=== PATIENT | female | born 1975 | race Caucasian/White ===

== ENCOUNTER 2020-10-09 04:19 | Emergency (ER) | payer BC, SELFPAY ==
[2020-10-09 04:38] VITALS: BP 150/102; PULSE 80; RESP 24; TEMP 36.6; O2SAT 97; BMI 30.1
--- NOTE | 2020-10-09 04:45 | PC.NURSE ---
at bedside for primary eval.
--- NOTE | 2020-10-09 04:51 | XR_ITS ---
EXAMINATION: XR CHEST CLINICAL INFORMATION: Shortness of breath COMPARISON: None TECHNIQUE: Frontal view of the chest was obtained. FINDINGS: The lungs are well expanded. There is no focal consolidation, edema, or effusion. No pneumothorax. The cardiomediastinal silhouette is within normal limits. No acute osseous abnormality. XR/XR chest 1V IMPRESSION: Clear lungs.
--- NOTE | 2020-10-09 04:56 | ED_ITS ---
HPI - URI/Sore Throat General Chief Complaint: Upper Respiratory Symptoms Stated Complaint: SOB Time Seen by Provider: 10/09/20 04:41 Source: patient Mode of arrival: ambulatory History of Present Illness HPI Narrative: 45-year-old female states of cough or shortness of breath x3 weeks. Patient states has seen her primary care doctor has been on steroids and azithromycin and not improving. Patient states at rest has had shortness of br eath however does have multiple coughing fits throughout the day. No chest pain no abdominal pain no diaphoresis no fevers. Patient states weekly gets COVID test negative secondary to work. No dizziness no diaphoresis no nausea no vomiting MD elicited complaint: cough Onset (ago): week(s) (3) Exacerbating factors: nothing Related Data Allergies Allergy/AdvReac Type Severity Reaction Status Date / Time latex [LATEX] Allergy Unknown RASH Unverified 07/31/20 17:17 Latex Gloves Allergy Unknown Uncoded 12/04/14 00:00 Review of Systems Review of Systems: Constitutional : No Weight loss, No Fever, No Chills, No Night Sweats, No Fatigue, No Malaise ENT/Mouth : No Hearing loss, No Ear Pain, No Nasal Congestion, No Sinus Pain, No Hoarseness, No sore throat, No Rhinorrhea, No Swallowing Difficulty Eyes: No Eye Pain, No Swelling, No Redness, No Foreign Body, No Discharge, No Vision Changes Cardiovascular : No Chest Pain, No SOB, No Dyspnea on Exertion, No Orthopnea, No Edema, No Palpitations Respiratory : Positive Cough, No Sputum, No Wheezing, No Smoke Exposure, positive Dyspnea Gastrointestinal : No Nausea, No Vomiting, No Diarrhea, No Constipation, No abdominal Pain, No Hematochezia, No Melena Genitourinary : no irregular bleeding, No Dysuria, No Urinary Frequency, No Hematuria, No Urinary Incontinence, No Urgency, No Flank Pain, No Urinary Flow Changes, No Hesitancy Musculoskeletal : No joint pain, No Myalgias, No Joint Swelling Skin : No Skin Lesions, No rash Neuro : No Weakness, No Numbness, No Paresthesias, No Loss of Consciousness, No Dizziness, No Headache Psych : No Anxiety/Panic, No Depression, No SI/HI/AH/VH, No Social Issues, Heme/Lymph: No Bruising, No Bleeding,No Lymphadenopathy Endocrine : No Polyuria, No Polydipsia, No Temperature Intolerance PMFSH Past Medical History Attestation statement: The following information was validated with the patient. Medical History Asthma No known health problems Family History Family History (Updated 10/09/20 @ 05:06 by Humza Carey DO) Other Family history non-contributory Social History Social History Advance Directives: No Advance Directives Information Provided: No Physical Exam Vital Signs: Vital Signs: Last Vital Signs Temp 97.9 F 10/09/20 04:38 Pulse 80 10/09/20 04:38 Resp 24 H 10/09/20 04:38 BP 150/102 H 10/09/20 04:38 Pulse Ox 97 10/09/20 04:38 Body Mass Index 30.1 Vital signs reviewed Pulse ox interpreted by me as normal at 97% room air Appearance: Alert. Oriented X3. No acute distress. Eyes: Pupils equal, round and reactive to light. ENT: Pharynx normal. Neck: Normal inspection. Neck supple. No lymph nodes noted. No crepitus CVS: Normal heart rate and rhythm. Pulses normal. Normal S1 and S2 Respiratory: Mild respiratory distress. Breath sounds abormal. Mild Wheezing with exertion. No rales Abdomen: Soft and nontender. No rigidity. No distention. good BS x4 Skin: Skin warm and dry. Normal skin color. Normal skin turgor. Extremities: No lower extremity edema. Neurovascular intact to all extremities. No Lacerations. No Rash Neuro: Oriented X 3. No motor deficit. No sensory deficit. Moving all extermities. No slurred speech. MDM - URI/Sore Throat Differential Diagnosis Differential diagnosis: Likely upper respiratory infection (Acute coronary syndrome, pulmonary embolism) Lab Data Attestation: I reviewed the patient's lab results. ECG Data Attestation: I personally reviewed and interpreted this ECG as follows: Interpretation: 78 beats per minute. Normal sinus rhythm. Rightward axis. No ST-T changes
--- NOTE | 2020-10-09 05:05 | PC.NURSE ---
RT at bedside. IV established, labs obtained and sent. EKG obtained by plant facilities technician. Awaiting CXR.
[2020-10-09 05:11] LABS: Basophils Absolute Auto 0.1 X10*3/uL (0.0-0.2); Basophils Percent Auto 0.6 % (0-2); Eosinophils Absolute Auto 0.2 X10*3/uL (0.0-0.4); Eosinophils Percent Auto 2.4 % (0-4); Hemoglobin 12.2 g/dl (12.0-16.0); Imm Gran Abs Auto 0.06 X10*3/uL (0.00-0.03); Imm Gran Pct Auto 0.6 % (0.0-0.4); Lymphocytes Absolute Auto 3.5 X10*3/uL (1.2-4.9); Lymphocytes Percent Auto 35.2 % (20-40); MANUAL DIFF FLAG NO; Mean Corpuscular Hemoglobin 30.1 pg (27.0-33.0); Mean Corpuscular Volume 91.4 fL (80-98); Mean Platelet Volume 10.2 fL (9.4-12.3); Monocytes Absolute Auto 0.5 X10*3/uL (0.1-1.2); Monocytes Percent Auto 5.5 % (2-11); Neutrophils Absolute Auto 5.5 X10*3/uL (2.0-8.3); Neutrophils Percent Auto 55.7 % (45-73); Platelet Count 233 X10*3/uL (160-400); Red Blood Count 4.05 X10*6/uL (4.20-5.50); Red Cell Distribution Width 12.7 % (11.0-16.0); White Blood Count 9.8 X10*3/uL (4.8-10.8)
[2020-10-09 05:20] LABS: D Dimer < 200 NG/ML
[2020-10-09] MEDS: Albuterol Sulfate (0.083%) 2.5 MG/3 ML VIAL.NEB 5 MG INHALE (05:29)
[2020-10-09 05:30] VITALS: PULSE 80; O2SAT 97
[2020-10-09 05:40] LABS: Alanine Aminotransferase 26 U/L (0-31); Albumin Level 4.2 g/dL (3.5-5.0); Alkaline Phosphatase 77 U/L (39-117); Anion Gap 13 (12-20); Aspartate Amino Transferase 17 U/L (5-31); Bilirubin Direct 0.2 mg/dL (0.0-0.5); Bilirubin Total 0.5 mg/dL (0.0-1.0); Blood Urea Nitrogen 15 mg/dL (9-16); Calcium 8.6 mg/dL (8.4-10.2); Carbon Dioxide 24 mmol/L (22-29); Chloride 105 mmol/L (96-108); Creatinine Clr Calc Pharmacy 91.6; Estimated Glomerular Filt Rate > 60; Glucose Random 95 mg/dL (60-115); Sodium 138 mmol/L (135-145); Total Protein 7.3 g/dL (6.5-8.0)
[2020-10-09 05:46] LABS: Troponin-I High Sensitivity < 3.5 ng/L (<3.5-17.0)
--- NOTE | 2020-10-09 06:17 | PC.NURSE ---
MD at bedside discussing results and plan of care.
[2020-10-09 06:43] VITALS: BP 124/68; PULSE 94; RESP 24; O2SAT 95
[2020-10-09] MEDS: predniSONE 20 MG TABLET 60 MG PO (06:44)
== END 2020-10-09 06:50 | disposition home or self-care (01) ==
PROVIDERS: Emergency Provider Emergency Medicine; PCP Hospitalist
DX: R05 Cough (principal); R06.02 Shortness of breath; Z20.828 Contact with and (suspected) exposure to other viral communicable diseases
CPT/HCPCS: 36415; 71045; 80048; 80076; 84484; 85025; 85379; 99283

== ENCOUNTER 2021-04-04 21:04 | Emergency (ER) | payer BC, SELFPAY ==
[2021-04-04 21:13] VITALS: BP 134/99; PULSE 76; RESP 16; TEMP 36.6; O2SAT 97; BMI 30.1
--- NOTE | 2021-04-04 21:37 | PC.NURSE ---
UA obtained and sent.
[2021-04-04 21:44] LABS: Glucose Urine UA NEG (NEG); Leukocyte Esterase Urine 2+ (NEG); Nitrite Urine NEG (NEG); Specific Gravity - Urine 1.025 (1.005-1.025); UACC Culture Trigger YES; Urine Blood 3+ (NEG); Urine Ketones NEG (NEG); Urine Protein NEG (NEG-TRACE)
[2021-04-04 21:49] LABS: Appearance Urine HAZY; Color Urine YELLOW
[2021-04-04 21:55] LABS: Bacteria Urine TRACE /LPF; Mucus Urine TRACE /LPF; Squamous Epithelial Cell Urine 3+ /LPF
--- NOTE | 2021-04-05 00:16 | ED.FEMALEGU ---
HPI - Female Genitourinary General Chief complaint: Urogenital-Female Stated complaint: ?Kidney infection Time Seen by Provider: 04/05/21 00:16 Source: patient Mode of arrival: ambulatory History of Present Illness HPI Narrative: 45-year-old female who is 9 days postop after TVH at which time she had of Lujan catheter for the surgery. Patient states that 2-3 days ago she began having left flank pain extending into the back with urinary frequency that started this afternoon, denies any fever chills but has a lot of nausea without any episodes of vomiting. She has continued to pass flatus and have a bowel movement. Related Data Previous Rx's Medication Instructions Recorded doxycycline hyclate 100 mg PO BID #10 cap 10/09/20 hydrocodone-homatropine 5 ml PO Q6H PRN #473 ml 10/09/20 prednisone 50 mg PO DAILY 5 Days #5 tab 10/09/20 ciprofloxacin HCl [Cipro] 500 mg PO Q12H 7 Days #14 tab 04/05/21 Allergies Allergy/AdvReac Type Severity Reaction Status Date / Time latex [LATEX] Allergy Unknown RASH Unverified 07/31/20 17:17 Latex Gloves Allergy Unknown Rash Uncoded 04/04/21 21:19 Review of Systems Review of Systems: Pertinent positives and negatives as stated in HPI 10 point review of systems otherwise negative. PMFSH Past Medical History Source: nursing notes reviewed Medical History Asthma No known health problems Uterine fibroid Surgical History History of hysterectomy Family History Family History Other Family history non-contributory Social History Social History Advance Directives: No Advance Directives Information Provided: No Patient : No Physical Exam Vital Signs: Vital Signs: Last Vital Signs Temp 98 F 04/04/21 21:13 Pulse 76 04/04/21 21:13 Resp 16 04/04/21 21:13 BP 134/99 H 04/04/21 21:13 Pulse Ox 97 04/04/21 21:13 Body Mass Index 30.1 VITAL SIGNS: Reviewed. GENERAL: Well developed, well nourished, in no acute distress. HEAD: Normocephalic/atraumatic EYES: PERRLA, EOMI OROPHARYNX: no oral lesions noted, posterior pharynx clear NECK: Supple, no adenopathy LUNGS: Normal breath sounds. No adventitious sounds or accessory muscle use. SpO2<97> CARDIOVASCULAR: Regular rate and rhythm without noted murmurs ABDOMEN: Soft, non-tender, non-distended with bowel sounds, positive CVA tenderness on the left Course Course Course Narrative: 45-year-old female with history and clinical presentation upon review of urinalysis results most consistent with pyelonephritis. Will provide combination analgesics, IV antibiotics, antiemetics, and 1 L of IV fluids and discharged home. On re-evaluation patient is feeling much better and she will be discharged after completion of antibiotics and IV fluids in stable condition with instructions to follow-up with her PCP. [facility] - Female Genitourinary Lab Data Labs: Lab Results 04/04/21 Range/Units 21:37 Urine Color YELLOW Urine Appearance HAZY Urine pH 6.0 (5.0-8.0) Ur Specific [place] 1.025 (1.005-1.025) Urine Protein NEG (NEG-TRACE) MG/DL Urine Glucose (UA) NEG (NEG) MG/DL Urine Ketones NEG (NEG) MG/DL Urine Blood 3+ H (NEG) Urine Nitrite NEG (NEG) Ur Leukocyte Esterase 2+ H (NEG) Urine RBC 1-4 (0) /HPF Urine WBC 10-14 H (0-4) /HPF Ur Squamous Epith Cells 3+ /LPF Urine Bacteria TRACE /LPF Urine Mucus TRACE /LPF Discharge Plan Discharge Clinical Impression: Pyelonephritis Patient Disposition: Home, Self-Care Instructions: Kidney Infection (ED) Additional Instructions: 1. Tylenol 1000 mg, orally, every 6 hours as needed for pain control. Do not exceed 4000 mg within 24 hours. 2. Ibuprofen 400 mg, orally with milk or food, every 6 hours as needed for pain control. 3. Follow-up with your primary care provider in the next 2-3 days for re-evaluation. Return to the emergency room if you have any acute worsening of your symptoms. Prescriptions: New ciprofloxacin HCl [Cipro] 500 mg tablet 500 mg PO Q12H 7 Days Qty: 14 RF: 0 No Action doxycycline hyclate 100 mg capsule 100 mg PO BID Qty: 10 RF: 0 prednisone 50 mg tablet 50 mg PO DAILY 5 Days Qty: 5 RF: 0 hydrocodone-homatropine 5-1.5 mg/5 mL syrup 5 ml PO Q6H PRN (Reason: cough) Qty: 473 RF: 0 Referrals: Harish Espinoza [Primary Care Provider] - 2 days
[2021-04-05] MEDS: Acetaminophen 325 MG TABLET 975 MG PO (00:57)
[2021-04-05] MEDS: Ketorolac Tromethamine 15 MG/ML VIAL IVPUSH (00:58)
[2021-04-05] MEDS: 0.9 % Sodium Chloride 1,000 ML 999 ML IV (00:58)
[2021-04-05] MEDS: ondansetron HCL 4 MG/2 ML VIAL IVPUSH (00:58)
[2021-04-05] MEDS: cefTRIAXone sodium 1 GM in 0.9 % Sodium Chloride 50 ML IV (00:59)
== END 2021-04-05 02:10 | disposition home or self-care (01) ==
PROVIDERS: Emergency Provider Student in an Organized Health Care Education/Training Program; PCP Hospitalist
DX: N10 Acute pyelonephritis (principal); R10.9 Unspecified abdominal pain; R11.0 Nausea; Z79.899 Other long term (current) drug therapy
CPT/HCPCS: 81001; 81003; 87086; 96365; 96375; 99283; 99284; J0696; J1885; J2405

== ENCOUNTER 2021-11-05 21:06 | Emergency (ER) | payer BC, SELFPAY ==
--- NOTE | ~2021-11-05 | CT_ITS ---
EXAMINATION: CT ABDOMEN AND PELVIS WITHOUT CONTRAST CLINICAL INFORMATION: Left flank pain. Renal colic versus pyelonephritis COMPARISON: None available TECHNIQUE: Multidetector volumetric imaging was performed from the superior aspect of the liver through the pubic symphysis. Sagittal and coronal reformatted images were obtained on the technologist's workstation. This CT examination was performed using dose optimization techniques as appropriate, variously including the following: *Automated exposure control *Adjustment of mA and/or kV according to patient size (this includes techniques or standardized protocols for targeted exams where dose is matched to indication/reason for exam; i.e. extremities or head) *Use of iterative reconstruction technique DLP: 647 mGy-cm FINDINGS: LUNG BASES: The visualized lung bases are unremarkable. Inferior aspect of a left breast prosthesis/implant is seen. LIVER, GALLBLADDER, AND BILIARY TREE: The liver is normal in size, shape, and attenuation. No focal hepatic lesion or biliary ductal dilatation is present. The gallbladder is unremarkable with no evidence of radiopaque gallstones, gallbladder wall thickening, or obvious pericholecystic inflammatory changes. PANCREAS: Unremarkable. SPLEEN: Unremarkable. Some splenules are seen. ADRENAL GLANDS: Unremarkable. KIDNEYS AND URETERS: The right kidney is normal. No hydronephrosis masses or stones are seen. The right ureter appears normal. Left kidney demonstrates some mild pelvocaliectasis with some minimal stranding around the renal pelvis. The ureter is not dilated and can be followed almost in its entirety to the bladder and a convincing calculus is not present. No renal masses are seen. No renal calculi are present. BLADDER: Unremarkable. GASTROINTESTINAL TRACT: The small and large bowel are unremarkable. The appendix is probably normal but there is certainly no evidence of appendicitis. ABDOMINAL WALL: No significant hernia is appreciated. LYMPH NODES: No retroperitoneal lymphadenopathy. VASCULAR: Unremarkable. PELVIC VISCERA: Uterus appears to have been removed. An abnormal adnexal mass or free intraperitoneal fluid is not seen. OSSEOUS STRUCTURES: Unremarkable. CT/CT abdomen pelvis wo con IMPRESSION: Abnormal left kidney with cysts and slight edema and collecting system prominence. An obstructing stone is not seen. Differential diagnosis would include pyelonephritis versus recently passed stone. Please correlate with urinalysis and culture. Fleischner guidelines were followed.
[2021-11-05 21:26] VITALS: BP 132/80; PULSE 89; RESP 16; TEMP 37.1; O2SAT 100; BMI 29.2
[2021-11-05 21:48] LABS: Appearance Urine HAZY; Color Urine STRAW; Glucose Urine UA NEG (NEG); Leukocyte Esterase Urine 3+ (NEG); Nitrite Urine NEG (NEG); Specific Gravity - Urine 1.015 (1.005-1.025); UACC Culture Trigger YES; Urine Blood 2+ (NEG); Urine Ketones NEG (NEG); Urine Protein 2+ MG/DL (NEG-TRACE)
[2021-11-05 21:56] LABS: Bacteria Urine 3+ /LPF; Mucus Urine 2+ /LPF; Squamous Epithelial Cell Urine 1+ /LPF; WBC Urine 50-75 /HPF (0-4)
--- NOTE | 2021-11-05 22:46 | ED.FEMALEGU ---
HPI - Female Genitourinary General Chief complaint: Urogenital-Female Stated complaint: kidney infection Time Seen by Provider: 11/05/21 22:23 Source: patient Mode of arrival: ambulatory History of Present Illness HPI Narrative: 46-year-old female with history of pyelonephritis presents with 1 week of worsening left-sided abdominal/back pain and burning with urination for the past week. This is not been associated with any nausea, vomiting, diarrhea, fevers but patient reports chills. Related Data Previous Rx's Medication Instructions Recorded doxycycline hyclate 100 mg capsule 100 mg PO BID #10 cap 10/09/20 hydrocodone-homatropine 5 mg-1.5 5 ml PO Q6H PRN #473 ml 10/09/20 mg/5 mL oral syrup prednisone 50 mg tablet 50 mg PO DAILY 5 Days #5 tab 10/09/20 ciprofloxacin HCl 500 mg tablet 500 mg PO Q12H 7 Days #14 tab 04/05/21 (Cipro) ciprofloxacin HCl 500 mg tablet 500 mg PO Q12H 5 Days #10 tab 11/05/21 Allergies Allergy/AdvReac Type Severity Reaction Status Date / Time latex [LATEX] Allergy Unknown RASH Verified 11/05/21 22:53 Latex Gloves Allergy Unknown Rash Uncoded 11/05/21 22:53 Review of Systems Review of Systems: Pertinent positives and negatives as stated in HPI 10 point review of systems is otherwise negative. [facility] Past Medical History Source: nursing notes reviewed Medical History Asthma No known health problems Uterine fibroid Surgical History History of hysterectomy Family History Family History Other Family history non-contributory Social History Social History Advance Directives: No Advance Directives Information Provided: Yes Patient : No Physical Exam Vital Signs: Vital Signs: Last Vital Signs Temp 98.7 F 11/05/21 21:26 Pulse 83 11/05/21 23:53 Resp 18 11/05/21 23:53 BP 104/65 11/05/21 23:53 Pulse Ox 96 11/05/21 23:53 BMI result Body Mass Index 29.2 VITAL SIGNS: Reviewed. GENERAL: Well developed, well nourished, mod distress. HEAD: Normocephalic/atraumatic EYES: PERRLA, EOMI LUNGS: Normal breath sounds. No adventitious sounds or accessory muscle use. SpO2<100> CARDIOVASCULAR: Regular rate and rhythm without noted murmurs ABDOMEN: Soft, non-tender, non-distended with bowel sounds, left CVA tenderness NEUROLOGIC: Alert and oriented x 4. Course Course Course Narrative: 46-year-old female with history and clinical presentation suggestive of possible pyelonephritis versus renal colic. Review of all investigations consistent with clinical diagnosis of pyelonephritis, patient tolerating oral intake, and on re-evaluation is feeling better after combination analgesics and was discharged after receiving initial antibiotics. [facility] - Female Genitourinary Lab Data Labs: Lab Results 11/05/21 11/05/21 Range/Units 21:37 21:37 Urine Color STRAW Urine Appearance HAZY Urine pH 6.0 (5.0-8.0) Ur Specific [place] 1.015 (1.005-1.025) Urine Protein 2+ H (NEG-TRACE) MG/DL Urine Glucose (UA) NEG (NEG) MG/DL Urine Ketones NEG (NEG) MG/DL Urine Blood 2+ H (NEG) Urine Nitrite NEG (NEG) Ur Leukocyte Esterase 3+ H (NEG) Urine RBC 10-14 H (0) /HPF Urine WBC 50-75 H (0-4) /HPF Ur Squamous Epith Cells 1+ /LPF Urine Bacteria 3+ /LPF Urine Mucus 2+ /LPF Urine Test NEGATIVE (NEGATIVE) Discharge Plan Discharge Clinical Impression: Pyelonephritis Patient Disposition: Home, Self-Care Instructions: Kidney Infection (ED) Additional Instructions: Complete entire course of antibiotics Recommend [id number] Tylenol/ibuprofen as needed for pain control. Return for worsening symptoms. Prescriptions: New ciprofloxacin HCl 500 mg tablet 500 mg PO Q12H 5 Days Qty: 10 RF: 0 No Action doxycycline hyclate 100 mg capsule 100 mg PO BID Qty: 10 RF: 0 prednisone 50 mg tablet 50 mg PO DAILY 5 Days Qty: 5 RF: 0 hydrocodone-homatropine 5-1.5 mg/5 mL syrup 5 ml PO Q6H PRN (Reason: cough) Qty: 473 RF: 0 ciprofloxacin HCl [Cipro] 500 mg tablet 500 mg PO Q12H 7 Days Qty: 14 RF: 0
[2021-11-05 22:54] LABS: UPreg QC Valid YES; Urine Pregnancy NEGATIVE (NEGATIVE)
[2021-11-05] MEDS: Acetaminophen 325 MG TABLET 975 MG PO (23:07)
[2021-11-05] MEDS: levoFLOXacin 500 MG TABLET PO (23:07)
[2021-11-05] MEDS: Ketorolac Tromethamine 30 MG/ML VIAL 15 MG IM (23:08)
[2021-11-05 23:53] VITALS: BP 104/65; PULSE 83; RESP 18; O2SAT 96
== END 2021-11-06 00:50 | disposition home or self-care (01) ==
PROVIDERS: Emergency Provider Student in an Organized Health Care Education/Training Program
DX: N12 Tubulo-interstitial nephritis, not specified as acute or chronic (principal)
CPT/HCPCS: 36415; 74176; 81001; 81025; 87086; 87088; 87186; 96372; 99284; J1885

== ENCOUNTER 2022-02-10 08:49 | Emergency (ER) | payer BC, SELFPAY ==
--- NOTE | ~2022-02-10 | XR_ITS ---
EXAMINATION: XR CHEST CLINICAL INFORMATION: COVID, history of asthma. COMPARISON: 10/09/2020 chest radiograph. TECHNIQUE: 2 views of the chest were obtained. FINDINGS: The lungs are clear. There are no pleural effusions. The heart and mediastinal structures are unremarkable. XR/XR chest 2V IMPRESSION: No acute cardiopulmonary process.
[2022-02-10 08:53] VITALS: BP 144/94; PULSE 77; RESP 20; TEMP 36.8; O2SAT 96; BMI 30.1
[2022-02-10] MEDS: Albuterol/Iprat 2.5/0.5MG 3 ML AMPUL.NEB INHALE (09:43)
[2022-02-10 09:44] VITALS: PULSE 77; O2SAT 96
[2022-02-10] MEDS: predniSONE 20 MG TABLET 60 MG PO (09:55)
--- NOTE | 2022-02-10 09:59 | ED.SOB ---
HPI - SOB/Dyspnea General Chief Complaint: Dyspnea Stated Complaint: Covid+, SOB Time Seen by Provider: 02/10/22 09:08 Source: patient Mode of arrival: ambulatory Limitations: no limitations History of Present Illness HPI Narrative: 46-year-old female who tested positive for COVID 4 days ago presents for shortness of breath. She has a history of asthma, and did not take any inhalers today. She does have an albuterol inhaler, flow but it, and DuoNeb at home. She has been using her DuoNeb 2 to 3 times a day and her albuterol inhaler twice a day, she does not usually use these rescue medications. Patient states that her chest feels tight, although she has no chest pain. She has been on prednisone before for asthma. Endorses fatigue, dry cough, congestion, minor ear pain and sore throat, she is eating and drinking fine. fevers, no body aches, no abdominal pain, no diarrhea, no vomiting, no nausea. Related Data Previous Rx's Medication Instructions Recorded doxycycline hyclate 100 mg capsule 100 mg PO BID #10 cap 10/09/20 hydrocodone-homatropine 5 mg-1.5 5 ml PO Q6H PRN #473 ml 10/09/20 mg/5 mL oral syrup prednisone 50 mg tablet 50 mg PO DAILY 5 Days #5 tab 10/09/20 ciprofloxacin HCl 500 mg tablet 500 mg PO Q12H 7 Days #14 tab 04/05/21 (Cipro) ciprofloxacin HCl 500 mg tablet 500 mg PO Q12H 5 Days #10 tab 11/05/21 prednisone 20 mg tablet 40 mg PO DAILY 5 Days #10 tab 02/10/22 Allergies Allergy/AdvReac Type Severity Reaction Status Date / Time latex [LATEX] Allergy Unknown RASH Verified 02/10/22 08:56 Latex Gloves Allergy Unknown Rash Uncoded 11/05/21 22:53 Review of Systems Constitutional: Constitutional: Denies body ache(s), Denies chills, Reports fatigue, Denies fever(s), Denies headache(s), Reports malaise and Denies weakness Eyes: Eyes: Denies diplopia ENT: Denies vertigo, Denies dizziness, Reports otalgia, Denies headache(s), Denies mouth pain, Reports nasal congestion, Reports nasal discharge, Reports post nasal drip, Denies sinus pain, Denies sinus pressure, Reports sore throat and Denies throat swelling Cardiovascular: Cardiovascular: Denies chest pain, Denies syncope, Denies leg edema, Denies lightheadedness, Denies Loss of Consciousness, Denies palpitations and Reports dyspnea Respiratory: Respiratory: Denies chest congestion, Reports cough and Reports dyspnea Gastrointestinal: Gastrointestinal: Denies abdominal pain, Denies hematochezia, Denies constipation, Denies diarrhea and Denies vomiting Musculoskeletal: Musculoskeletal: Reports no additional musculoskeletal complaints Neurologic: Denies confusion, Denies vertigo, Denies dizziness, Denies syncope, Denies headache(s) and Denies weakness Psychiatric: Psychiatric: Denies anxiety, Denies confusion and Denies depression Endocrine: Endocrine: Reports fatigue and Denies palpitations Allergic/Immunologic: Allergic/Immunologic: Denies throat swelling [facility] Past Medical History [facility] Narrative: Pyelonephritis PTSD Medical History Asthma No known health problems Uterine fibroid Surgical History History of hysterectomy Family History Family History Other Family history non-contributory Social History Social History Advance Directives: Yes Advance Directives Information Provided: No Advance Directives on File: No Physical Exam Vital Signs: Vital Signs: Last Vital Signs Temp 98.2 F 02/10/22 08:53 Pulse 77 02/10/22 09:44 Resp 20 02/10/22 08:53 BP 144/94 H 02/10/22 08:53 Pulse Ox 96 02/10/22 08:53 BMI result Body Mass Index 30.1 Const: General: No confusion Nutritional Appearance: well nourished Orientation/consciousness: No confusion Limitations: no limitations HEENT: Head: Yes normal to inspection, Yes normocephalic and Yes atraumatic Ears: hearing grossly normal bilaterally, external ears normal, TM's normal bilaterally and EAC's normal General nose exam: Normal external nose present Face and sinus: Yes normal facial exam and Yes sinuses nontender Mouth: Normal oral and palatal mucosa present Throat: Yes uvula midline, No abnormal tonsil, Yes posterior oropharynx abnormal (Mildly erythematous) and Yes postnasal drainage Eyes: Conjunctivae: conjunctivae normal Pupils: Equal, round and reactive pupils present EOM: EOMs intact bilaterally Neck: Neck: Yes full ROM, Yes no lymphadenopathy and Yes supple Resp: Effort & Inspection: normal respiratory effort and able to speak in complete sentences Auscultation: clear to auscultation bilaterally, no crackles, no rales, no rhonchi, no wheezes and diminished lung sounds (Mildly bilaterally) Cardio: Rate: regular rate Rhythm: regular rhythm Heart sounds: S1 normal heart sound present and S2 normal heart sound present GI: Inspection: Yes normal to inspection Palpation (GI): Soft to palpation, nontender, no guarding and not rigid Percussion: Yes normal to percussion Auscultation: normal bowel sounds Skin: General skin exam: no rashes or lesions noted Neuro: General: No confusion Cranial nerves: Yes Equal, round and reactive pupils present Extrem: General: Yes normal to inspection and Yes full ROM Psych: Appearance: grossly normal Affect: normal affect Attitude: cooperative Thought process: Normal thought process present Course Course Course Narrative: 46-year-old female presents for shortness of breath. Patient has a history of asthma and was diagnosed with COVID 4 days ago. On exam, patient has a respiration rate of 20 and is satting 96%. Not in any respiratory distress. Lungs are mildly diminished, no wheezes or rhonchi or rales heard. Posterior oropharynx shows postnasal drip. Patient is afebrile. After nebulizer treatment, patient feels much better, she is moving more air. Chest x-ray was negative, lungs are clear, no pneumonia or effusions. We did discuss that patient should have a low threshold to return to the emergency room, patient's groin was 0 on the Wells score, I do not think this is of pulmonary embolus, as patient scores 0 on wells and has stable vitals. Patient has no chest pain, I do not think this is cardiac in nature. However, counseled patient to return to the emergency room if she had sudden chest pain, or worsening shortness of breath. Counseled her to use a pulse oximeter at home to keep track of her oxygen saturation. Patient verbalized agreement understanding of the plan FINDINGS: The lungs are clear. There are no pleural effusions. The heart and mediastinal structures are unremarkable. XR/XR chest 2V IMPRESSION: No acute cardiopulmonary process. Discharge Plan Discharge Clinical Impression: Asthma with exacerbation, COVID-19 Patient Disposition: Home, Self-Care Instructions: Asthma (ED), COVID-19 (Coronavirus Disease 2019) (ED) Additional Instructions: Please call your primary care provider for today's emergency room visit for follow-up. Please use your nebulizer machine every 4-6 hours for the next 3 days. Please take Tylenol as needed. Please take prednisone starting tomorrow, take prednisone in the morning. As we discussed, COVID can cause blood clots, if you feel suddenly short of breath with chest pain, please return. Your x-ray showed no pneumonia today, I do think this is an asthma exacerbation from the COVID virus. However, if you feel worse, you must return immediately to emergency room Prescriptions: New prednisone 20 mg tablet 40 mg PO DAILY 5 Days Qty: 10 0RF No Action doxycycline hyclate 100 mg capsule 100 mg PO BID Qty: 10 0RF prednisone 50 mg tablet 50 mg PO DAILY 5 Days Qty: 5 0RF hydrocodone-homatropine 5-1.5 mg/5 mL syrup 5 ml PO Q6H PRN (Reason: cough) Qty: 473 0RF ciprofloxacin HCl [Cipro] 500 mg tablet 500 mg PO Q12H 7 Days Qty: 14 0RF ciprofloxacin HCl 500 mg tablet 500 mg PO Q12H 5 Days Qty: 10 0RF Interventions: ED Discharge Assessment Last Done: 02/10/22 10:28 Discharge Date/Time: 02/10/22 10:25
== END 2022-02-10 10:25 | disposition home or self-care (01) ==
PROVIDERS: Emergency Provider Emergency Medicine
DX: U07.1 COVID-19 (principal); J45.901 Unspecified asthma with (acute) exacerbation; R06.02 Shortness of breath
CPT/HCPCS: 71046; 99283; 99284

== ENCOUNTER 2022-07-17 12:06 | Emergency (ER) | payer BC, SELFPAY ==
[2022-07-17 12:08] VITALS: BP 134/88; PULSE 85; RESP 20; TEMP 35.8; O2SAT 97; BMI 30.9
--- NOTE | 2022-07-17 12:45 | ED.ALLEREA ---
HPI - Allergic Reaction General Chief complaint: Allergic Reaction Stated complaint: Allergic Reaction to Poisson Edyta Time Seen by Provider: 07/17/22 12:42 History of Present Illness HPI narrative: patient with poison edyta which is been spreading all over body, she saw her doctor who has already started prednisone taper starting at 60 mg a day, this has not been helping she is also taking hydroxyzine 50 mg 4 times a day which makes her sleepy There is no difficulty breathing or swallowing, no pain no fever Related Data Previous Rx's Medication Instructions Recorded doxycycline hyclate 100 mg capsule 100 mg PO BID #10 caps 10/09/20 hydrocodone-homatropine 5 mg-1.5 5 ml PO Q6H PRN cough #473 mL 10/09/20 mg/5 mL oral syrup prednisone 50 mg tablet 50 mg PO DAILY 5 days #5 tabs 10/09/20 ciprofloxacin HCl 500 mg tablet 500 mg PO Q12H 7 days #14 tabs 04/05/21 (Cipro) ciprofloxacin HCl 500 mg tablet 500 mg PO Q12H 5 days #10 tabs 11/05/21 prednisone 20 mg tablet 40 mg PO DAILY 5 days #10 tabs 02/10/22 cetirizine 10 mg capsule 10 mg PO DAILY PRN allergy 07/17/22 symptoms #14 caps clobetasol 0.05 % topical ointment 1 appl topical DAILY PRN rash #45 07/17/22 grams diphenhydramine HCl 25 mg capsule 50 mg PO BEDTIME PRN allergy 07/17/22 (Benadryl) symptoms #20 caps famotidine 20 mg tablet (Pepcid) 20 mg PO DAILY #10 tabs 07/17/22 Allergies Allergy/AdvReac Type Severity Reaction Status Date / Time latex [LATEX] Allergy Unknown RASH Verified 02/10/22 08:56 Latex Gloves Allergy Unknown Rash Uncoded 11/05/21 22:53 Review of Systems Review of Systems: positive for itchy poison edyta rash Negatives are no fever no chills no dizziness weakness no fainting no feeling faint no headache no neck pain no difficulty breathing or swallowing no swelling of lips tongue uvula or pharynx, no drooling no voice change no chest pain no shortness of breath no vomiting no pain no wounds Yes all other systems are reviewed and are negative PMFSH Past Medical History Source: nursing notes reviewed Medical History Asthma No known health problems Uterine fibroid Surgical History History of hysterectomy Family History Family History Other Family history non-contributory Social History Social History Advance Directives: Yes Advance Directives Information Provided: Yes Advance Directives on File: No Physical Exam ED Vital Signs: Vital Signs - 24 hr 07/17/22 12:08 Temperature 96.4 F L Pulse Rate 85 Respiratory Rate 20 Blood Pressure 134/88 Pulse Oximetry 97 Oxygen Delivery Method Room Air BMI result Body Mass Index 30.9 general appearance is no distress Head is normocephalic atraumatic Eyes no redness no discharge The nose not congested The pharynx no swelling of lips tongue uvula or pharynx, no impairment of breathing or swallowing, voice is normal, uvula is midline, no drooling Neck is supple Chest clear to auscultation bilateral with full symmetric equal breath sounds Heart no murmur Extremities full range of motion x4 there is widespread bilateral vesicular linear rash consistent with poison edyta Course Course Course Narrative: patient is already being treated with steroids and hydroxyzine, but the rash continues to spread and remains very itchy I told her we would try to change the antihistamine component so we are going to try Zyrtec once a day and Benadryl 50 mg at night to see if that is more helpful, and I wrote for a steroid cream Well-appearing patient is discharged Discharge Plan Discharge Clinical Impression: Poison deyta dermatitis Patient Disposition: Home, Self-Care Additional Instructions: continue taking the oral steroid as it is the strongest medicine for poison edyta We are changing the antihistamine from hydroxyzine which makes you sleepy to once a day Claritin as well as Benadryl 50 mg at night before bed We are also adding Pepcid which may have some positive affect on allergic reaction I wrote for a high-dose steroid cream as well as her prednisone to see if it relieves the itch in the were spots but it cannot be used all over the body as it is too strong so only small amounts in the itchy is to spots as needed Return any time any worse condition or concerns Follow with primary doctor Prescriptions: New cetirizine 10 mg capsule 10 mg PO DAILY PRN (Reason: allergy symptoms) Qty: 14 0RF diphenhydramine HCl [Benadryl] 25 mg capsule 50 mg PO BEDTIME PRN (Reason: allergy symptoms) Qty: 20 0RF famotidine [Pepcid] 20 mg tablet 20 mg PO DAILY Qty: 10 0RF clobetasol 0.05 % ointment 1 appl topical DAILY PRN (Reason: rash) Qty: 45 0RF No Action doxycycline hyclate 100 mg capsule 100 mg PO BID Qty: 10 0RF prednisone 50 mg tablet 50 mg PO DAILY 5 Days Qty: 5 0RF hydrocodone-homatropine 5-1.5 mg/5 mL syrup 5 ml PO Q6H PRN (Reason: cough) Qty: 473 0RF ciprofloxacin HCl [Cipro] 500 mg tablet 500 mg PO Q12H 7 Days Qty: 14 0RF prednisone 20 mg tablet 40 mg PO DAILY 5 Days Qty: 10 0RF ciprofloxacin HCl 500 mg tablet 500 mg PO Q12H 5 Days Qty: 10 0RF
== END 2022-07-17 15:09 | disposition home or self-care (01) ==
PROVIDERS: Emergency Provider Emergency Medicine
DX: L23.7 Allergic contact dermatitis due to plants, except food (principal)
CPT/HCPCS: 99282; 99283

== ENCOUNTER 2022-07-20 16:53 | Emergency (ER) | payer BC, SELFPAY ==
--- NOTE | 2022-07-20 | ECG_ITS ---
Test Reason : HYPERTENSION Blood Pressure : / mmHG Vent. Rate : 077 BPM Atrial Rate : 077 BPM P-R Int : 118 ms QRS Dur : 084 ms QT Int : 390 ms P-R-T Axes : 035 -34 055 degrees QTc Int : 441 ms Normal sinus rhythm Left axis deviation Nonspecific T wave abnormality Abnormal ECG When compared with ECG of 09-OCT-2020 04:54, No significant change was found Referred By: Generic ED Physician Electronically Signed By:WEN SIMMONS
[2022-07-20 16:55] VITALS: BP 163/105; PULSE 89; RESP 18; TEMP 36.8; O2SAT 98; BMI 30.9
--- NOTE | 2022-07-20 17:17 | ED.GENADULT ---
HPI - General Adult General Chief complaint: Allergic Reaction Stated complaint: allergic reaction to medicine Time Seen by Provider: 07/20/22 17:03 Source: patient Limitations: no limitations History of Present Illness HPI narrative: This is a 47-year-old female who has had poison chicho on her left lower abdomen and left thigh for weeks. The patient was treated with prednisone, is currently on her 2nd course, 60 mg daily. She noted that the poison chicho seem to be getting better in terms of the rash but then recently she developed more diffuse blotchy redness in the area where she had a poison chicho both on her left lower abdomen and on her left anterior thigh. Patient has been using open L baths, calamine lotion. She has been taking Benadryl, last dose this morning. She has also been on hydroxyzine. She went to her primary care physician today and was thought to have cellulitis and was put on Keflex. She took 1 dose but subsequent knows that she had feeling of tingling in her mouth and on. She denies any new rash, but does feel somewhat itchy all over. She denies any tongue or lip swelling or shortness of breath. Patient denies any history of hypertension, at her primary care physician's office her blood pressure was mildly elevated around 140/90.. Patient's last dose of prednisone was this morning, 60 mg PO. Patient has also noticed that for the last 5 days or so she has been incredibly thirsty and feels like she can never get enough water. Related Data Previous Rx's Medication Instructions Recorded doxycycline hyclate 100 mg capsule 100 mg PO BID #10 caps 10/09/20 hydrocodone-homatropine 5 mg-1.5 5 ml PO Q6H PRN cough #473 mL 10/09/20 mg/5 mL oral syrup prednisone 50 mg tablet 50 mg PO DAILY 5 days #5 tabs 10/09/20 ciprofloxacin HCl 500 mg tablet 500 mg PO Q12H 7 days #14 tabs 04/05/21 (Cipro) ciprofloxacin HCl 500 mg tablet 500 mg PO Q12H 5 days #10 tabs 11/05/21 prednisone 20 mg tablet 40 mg PO DAILY 5 days #10 tabs 02/10/22 cetirizine 10 mg capsule 10 mg PO DAILY PRN allergy 07/17/22 symptoms #14 caps clobetasol 0.05 % topical ointment 1 appl topical DAILY PRN rash #45 07/17/22 grams diphenhydramine HCl 25 mg capsule 50 mg PO BEDTIME PRN allergy 07/17/22 (Benadryl) symptoms #20 caps famotidine 20 mg tablet (Pepcid) 20 mg PO DAILY #10 tabs 07/17/22 clindamycin HCl 150 mg capsule 450 mg PO TID 7 days #63 caps 07/20/22 Allergies Allergy/AdvReac Type Severity Reaction Status Date / Time latex [LATEX] Allergy Unknown RASH Verified 07/20/22 16:55 Latex Gloves Allergy Unknown Rash Uncoded 11/05/21 22:53 Review of Systems Review of Systems: Yes all other systems are reviewed and are negative Constitutional: Constitutional: Reports as per HPI and Denies fever(s) Eyes: Eyes: Reports as per HPI and Reports no additional eye complaints ENT: Reports system reviewed and no additional complaints, except as documented, Reports as per HPI, Denies nasal congestion, Denies nasal discharge and Denies sore throat Cardiovascular: Cardiovascular: Reports as per HPI, Denies chest pain and Reports dyspnea (Mild) Respiratory: Respiratory: Reports as per HPI, Denies cough and Reports dyspnea (Mild) Gastrointestinal: Gastrointestinal: Reports as per HPI, Denies abdominal pain, Denies diarrhea and Denies vomiting Genitourinary: Genitourinary: Reports as per HPI, Denies hematuria, Denies urinary frequency and Denies dysuria Musculoskeletal: Musculoskeletal: Reports no additional musculoskeletal complaints and Denies numbness Integumentary/Breasts: Skin/Breast: Reports as per HPI and Reports rash Neurologic: Reports as per HPI, Denies focal weakness and Denies numbness Comments: Tingling in mouth and time Psychiatric: Psychiatric: Reports no additional psychiatric complaints and Reports as per HPI Endocrine: Endocrine: Reports no additional endocrine complaints and Reports as per HPI Hematologic/Lymphatic: Hematologic/Lymphatic: Reports no additional hematologic/lymphatic complaints, Reports as per HPI and Reports other (No peripheral edema) [facility], [facility] Past Medical History Medical History Asthma No known health problems Uterine fibroid Surgical History History of hysterectomy Family History Family History Other Family history non-contributory Social History Social History Advance Directives: Yes Advance Directives Information Provided: No Advance Directives on File: No Physical Exam ED Vital Signs: Vital Signs - 24 hr 07/20/22 16:55 07/20/22 17:53 07/20/22 19:30 Temperature 98.3 F 98.5 F Pulse Rate 89 77 65 Respiratory Rate 18 16 14 Blood Pressure 163/105 H 148/97 H 126/86 Pulse Oximetry 98 96 96 Oxygen Delivery Method Room Air Room Air Room Air BMI result Body Mass Index 30.9 Const Other: Patient not ill appearing General: no acute distress Orientation/consciousness: patient oriented x3 HENMT Head: Yes normal to inspection General nose exam: Normal external nose present Mouth: moist mucous membranes Throat: Yes posterior oropharynx normal, Yes tonsils normal and Yes uvula midline Eyes Eyelids: Yes eyelids normal Conjunctivae: conjunctivae normal Pupils: Equal, round and reactive pupils present Neck Neck: Yes supple Resp Effort & Inspection: normal respiratory effort Auscultation: clear to auscultation bilaterally Cardio Rate: regular rate Rhythm: regular rhythm Heart sounds: S1 normal heart sound present, S2 normal heart sound present, no gallops, no murmurs and no rubs GI Inspection: No distended Palpation (GI): Soft to palpation and nontender Auscultation: normal bowel sounds Skin Other: Larger blotchy erythema left lower abdomen, also left anterior medial thigh. Underlying resolving contact dermatitis type rash. General skin exam: other (Warm and dry) Neuro General: patient oriented x3 and CN's II-XI intact bilaterally Cranial nerves: Yes Equal, round and reactive pupils present Extrem General: Yes no pedal edema Psych Affect: normal affect Attitude: cooperative Course Course Course Narrative: Patient with a rash in her lower abdomen and left thigh, started as what was diagnosed as poison chicho, but seemed to worsen despite courses of prednisone and antihistamines. Patient with on Keflex today for possible cellulitis, by her primary care physician. Patient subsequently developed a feeling of tingling in her tongue any pruritus, felt that she was having a reaction. The patient had no objective evidence of allergic reaction and that there was no urticaria, erythroderma, tongue or lip swelling, wheezing. Patient is however already on prednisone and diphenhydramine, so this may have muted the symptoms. Patient last had prednisone 60 mg p.o. this morning, so we did not give her additional prednisone. She was given diphenhydramine IV. She was given clindamycin IV for presumed cellulitis. Patient's white blood cell count was elevated at around 15 but this could be due to being on prednisone, versus infection. Patient appeared well clinically, did not appear ill. Patient is to be started on clindamycin and is to stop taking the cephalexin. She can continue her prednisone taper and use diphenhydramine. The patient also reported feeling like she has to drink lots of water recently, which was thought perhaps to be due to hyperglycemia from being on prednisone, however her glucose was not significantly elevated. Medical Decision Making Lab Data Result diagrams: 07/20/22 17:31 07/20/22 18:39 Labs: Lab Results 07/20/22 07/20/22 Range/Units 17:31 18:39 WBC 15.8 H (4.8-10.8) X10*3/uL RBC 4.58 (4.20-5.50) X10*6/uL Hgb 13.7 (12.0-16.0) g/dl Hct 41.0 (37.0-47.0) % MCV 89.5 (80.0-98.0) fL MCH 29.9 (27.0-33.0) pg MCHC 33.4 (31.0-35.0) g/dl RDW 13.4 (11.0-16.0) % Plt Count 275 (160-400) X10*3/uL MPV 10.5 (9.4-12.3) fL Immature Gran % (Auto) 1.0 H (0.0-0.4) % Neut % (Auto) 86.2 H (45-73) % Lymph % (Auto) 9.2 L (20-40) % [place] % (Auto) 2.2 (2-11) % Eos % (Auto) 1.1 (0-4) % Baso % (Auto) 0.3 (0-2) % Lymph # (Auto) 1.5 (1.2-4.9) X10*3/uL [place] # (Auto) 0.4 (0.1-1.2) X10*3/uL Eos # (Auto) 0.2 (0.0-0.4) X10*3/uL Baso # (Auto) 0.0 (0.0-0.2) X10*3/uL Abs Immat Gran (auto) 0.15 H (0.00-0.03) X10*3/uL Absolute Neuts (auto) 13.6 H (2.0-8.3) x10*3/uL Absolute Nucleated RBC 0.000 (0.0-0.012) X10*3/uL Nucleated RBC % (auto) 0.0 (0.0-0.2) /100WBC Sodium 138 (135-145) mmol/L Potassium 4.6 (3.3-5.1) mmol/L Chloride 103 (96-108) mmol/L Carbon Dioxide 24 (22-29) mmol/L Anion Gap 16 (12-20) BUN 19 H (9-16) mg/dL Creatinine 0.88 (0.5-1.4) mg/dL Estim Creat Clear Calc 79.6 Estimated GFR > 60 Random Glucose 116 H (60-115) mg/dL Calcium 9.4 D (8.4-10.2) mg/dL Total Bilirubin 0.5 (0.0-1.0) mg/dL AST 17 (5-31) U/L ALT 24 (0-31) U/L Alkaline Phosphatase 77 (39-117) U/L Total Protein 7.7 (6.5-8.0) g/dL Albumin 4.5 (3.5-5.0) g/dL ECG Data Attestation: I personally reviewed and interpreted this ECG as follows: Interpretation: Sinus rhythm with a rate of 77. Left axis deviation. Nonspecific T-wave changes with T-wave inversion leads V1 through V3. Discharge Plan Discharge Clinical Impression: Allergic reaction Patient Disposition: Home, Self-Care Instructions: Cellulitis (ED), General Allergic Reaction (ED) Additional Instructions: Continue the prednisone taper, with 40 mg tomorrow, as scheduled. Stop the cephalexin. Start the clindamycin. Use diphenhydramine 25-50 mg every 6 hours as needed for any allergy symptoms or pruritus. Return for any new or worsened symptoms such as increased redness to the areas of cellulitis, fever. Prescriptions: New clindamycin HCl 150 mg capsule 450 mg PO TID 7 Days Qty: 63 0RF No Action doxycycline hyclate 100 mg capsule 100 mg PO BID Qty: 10 0RF prednisone 50 mg tablet 50 mg PO DAILY 5 Days Qty: 5 0RF hydrocodone-homatropine 5-1.5 mg/5 mL syrup 5 ml PO Q6H PRN (Reason: cough) Qty: 473 0RF ciprofloxacin HCl [Cipro] 500 mg tablet 500 mg PO Q12H 7 Days Qty: 14 0RF prednisone 20 mg tablet 40 mg PO DAILY 5 Days Qty: 10 0RF ciprofloxacin HCl 500 mg tablet 500 mg PO Q12H 5 Days Qty: 10 0RF cetirizine 10 mg capsule 10 mg PO DAILY PRN (Reason: allergy symptoms) Qty: 14 0RF diphenhydramine HCl [Benadryl] 25 mg capsule 50 mg PO BEDTIME PRN (Reason: allergy symptoms) Qty: 20 0RF famotidine [Pepcid] 20 mg tablet 20 mg PO DAILY Qty: 10 0RF clobetasol 0.05 % ointment 1 appl topical DAILY PRN (Reason: rash) Qty: 45 0RF Interventions: ED Discharge Assessment Last Done: 07/20/22 19:36 Discharge Date/Time: 07/20/22 19:36
[2022-07-20] MEDS: LORazepam 0.5 MG TABLET PO (17:41)
[2022-07-20] MEDS: Famotidine 20 MG TABLET PO (17:41)
[2022-07-20] MEDS: Clindamycin Phosphate/D5W 300 MG/50 ML PIGGYBACK 100 MG IV (17:42)
[2022-07-20] MEDS: diphenhydrAMINE HCL 50 MG/ML VIAL IVPUSH (17:42)
[2022-07-20 17:51] LABS: MANUAL DIFF FLAG NO
[2022-07-20 17:53] VITALS: BP 148/97; PULSE 77; RESP 16; O2SAT 96
[2022-07-20 17:54] LABS: Basophils Percent Auto 0.3 % (0-2); Eosinophils Absolute Auto 0.2 X10*3/uL (0.0-0.4); Eosinophils Percent Auto 1.1 % (0-4); Hemoglobin 13.7 g/dl (12.0-16.0); Imm Gran Abs Auto 0.15 X10*3/uL (0.00-0.03); Lymphocytes Absolute Auto 1.5 X10*3/uL (1.2-4.9); Lymphocytes Percent Auto 9.2 % (20-40); Mean Corpuscular HGB Conc 33.4 g/dl (31.0-35.0); Mean Corpuscular Hemoglobin 29.9 pg (27.0-33.0); Mean Corpuscular Volume 89.5 fL (80.0-98.0); Mean Platelet Volume 10.5 fL (9.4-12.3); Monocytes Absolute Auto 0.4 X10*3/uL (0.1-1.2); Monocytes Percent Auto 2.2 % (2-11); Neutrophils Absolute Auto 13.6 x10*3/uL (2.0-8.3); Neutrophils Percent Auto 86.2 % (45-73); Platelet Count 275 X10*3/uL (160-400); Red Blood Count 4.58 X10*6/uL (4.20-5.50); Red Cell Distribution Width 13.4 % (11.0-16.0); White Blood Count 15.8 X10*3/uL (4.8-10.8)
[2022-07-20 19:07] LABS: Alanine Aminotransferase 24 U/L (0-31); Albumin Level 4.5 g/dL (3.5-5.0); Alkaline Phosphatase 77 U/L (39-117); Anion Gap 16 (12-20); Aspartate Amino Transferase 17 U/L (5-31); Bilirubin Total 0.5 mg/dL (0.0-1.0); Blood Urea Nitrogen 19 mg/dL (9-16); Calcium 9.4 mg/dL (8.4-10.2); Carbon Dioxide 24 mmol/L (22-29); Chloride 103 mmol/L (96-108); Creatinine Clr Calc Pharmacy 79.6; Estimated Glomerular Filt Rate > 60; Glucose Random 116 mg/dL (60-115); Potassium 4.6 mmol/L (3.3-5.1); Sodium 138 mmol/L (135-145); Total Protein 7.7 g/dL (6.5-8.0)
--- NOTE | 2022-07-20 19:29 | PC.NURSE ---
Report taken from Christiana PHILLIPS, assumed care of pt at this time. Pt sitting up in bed A&Ox4, skin pwd respirations even unlabored, awaiting DC paperwork.
[2022-07-20 19:30] VITALS: BP 126/86; PULSE 65; RESP 14; TEMP 36.9; O2SAT 96
== END 2022-07-20 19:36 | disposition home or self-care (01) ==
PROVIDERS: Emergency Provider Emergency Medicine
DX: L50.0 Allergic urticaria (principal); R21 Rash and other nonspecific skin eruption; Z79.899 Other long term (current) drug therapy
CPT/HCPCS: 36415; 80053; 85025; 93005; 96374; 96375; 99284; J1200

== ENCOUNTER 2022-11-29 02:27 | Emergency (ER) | payer BC, SELFPAY ==
[2022-11-29 02:28] VITALS: BP 126/86; PULSE 66; RESP 20; TEMP 36.1; O2SAT 96; BMI 30.1
--- NOTE | 2022-11-29 02:54 | ED.HA ---
HPI - Headache General Chief Complaint: Headache Stated Complaint: Migraine Time Seen by Provider: 11/29/22 02:48 Source: patient Mode of arrival: ambulatory Limitations: no limitations History of Present Illness HPI Narrative: Patient comes to the emergency room complaining of a migraine headache that started 2 hours ago. Patient states that she has not had migraines in several months. Patient states that before she had a hysterectomy, she is to have migraines frequently which were hormonal related. Now they have become more spaced out after the hysterectomy. However, today, patient woke up with a migraine, tried taking ibuprofen but she vomited immediately. Patient denies any visual changes, complaining of photophobia, denies any other neurological deficits Related Data Previous Rx's Medication Instructions Recorded doxycycline hyclate 100 mg capsule 100 mg PO BID #10 caps 10/09/20 hydrocodone-homatropine 5 mg-1.5 5 ml PO Q6H PRN cough #473 mL 10/09/20 mg/5 mL oral syrup prednisone 50 mg tablet 50 mg PO DAILY 5 days #5 tabs 10/09/20 ciprofloxacin HCl 500 mg tablet 500 mg PO Q12H 7 days #14 tabs 04/05/21 (Cipro) ciprofloxacin HCl 500 mg tablet 500 mg PO Q12H 5 days #10 tabs 11/05/21 prednisone 20 mg tablet 40 mg PO DAILY 5 days #10 tabs 02/10/22 cetirizine 10 mg capsule 10 mg PO DAILY PRN allergy 07/17/22 symptoms #14 caps clobetasol 0.05 % topical ointment 1 appl topical DAILY PRN rash #45 07/17/22 grams diphenhydramine HCl 25 mg capsule 50 mg PO BEDTIME PRN allergy 07/17/22 (Benadryl) symptoms #20 caps famotidine 20 mg tablet (Pepcid) 20 mg PO DAILY #10 tabs 07/17/22 clindamycin HCl 150 mg capsule 450 mg PO TID 7 days #63 caps 07/20/22 metoclopramide HCl 5 mg tablet 5 mg PO Q6H #10 tabs 11/29/22 (Reglan) sumatriptan succinate 50 mg tablet See Rx Instructions PO .COMPLEX 11/29/22 #10 tabs Allergies Allergy/AdvReac Type Severity Reaction Status Date / Time latex [LATEX] Allergy Unknown RASH Verified 11/29/22 02:31 Latex Gloves Allergy Unknown Rash Uncoded 11/29/22 02:31 Review of Systems Review of Systems: Constitutional : No Weight loss, No Fever, No Chills, No Night Sweats, No Fatigue, No Malaise ENT/Mouth : No Hearing loss, No Ear Pain, No Nasal Congestion, No Sinus Pain, No Hoarseness, No sore throat, No Rhinorrhea, No Swallowing Difficulty Eyes: No Eye Pain, No Swelling, No Redness, No Foreign Body, No Discharge, No Vision Changes, complaining of photophobia Cardiovascular : No Chest Pain, No SOB, No Dyspnea on Exertion, No Orthopnea, No Edema, No Palpitations Respiratory : No Cough, No Sputum, No Wheezing, No Smoke Exposure, No Dyspnea Gastrointestinal : No Nausea, No Vomiting, No Diarrhea, No Constipation, No abdominal Pain, No Hematochezia, No Melena Genitourinary : no irregular bleeding, No Dysuria, No Urinary Frequency, No Hematuria, No Urinary Incontinence, No Urgency, No Flank Pain, No Urinary Flow Changes, No Hesitancy Musculoskeletal : No joint pain, No Myalgias, No Joint Swelling Skin : No Skin Lesions, No rash Neuro : No Weakness, No Numbness, No Paresthesias, No Loss of Consciousness, No Dizziness, complaining of a migraine headache Psych : No Anxiety/Panic, No Depression, No SI/HI/AH/VH, No Social Issues, Heme/Lymph: No Bruising, No Bleeding,No Lymphadenopathy Endocrine : No Polyuria, No Polydipsia, No Temperature Intolerance PMFSH Past Medical History Medical History (Updated 11/29/22 @ 02:56 by Allison Ballard MD) Asthma Migraine No known health problems Uterine fibroid Surgical History History of hysterectomy Family History Family History Other Family history non-contributory Social History Social History Alcohol intake: current Smoked in Last 30 Days: No Use of substances other than those prescribed or required for medical reasons: No Advance Directives: No Advance Directives Information Provided: No Patient : No Physical Exam Vital Signs: Vital Signs: Last Vital Signs Temp 97 F 11/29/22 02:28 Pulse 66 11/29/22 02:28 Resp 20 11/29/22 02:28 BP 126/86 11/29/22 02:28 Pulse Ox 96 11/29/22 02:28 O2 Del Method 11/29/22 02:28 BMI result Body Mass Index 30.1 Const: Other: Appearance: Alert. Oriented X3. Looks uncomfortable Eyes: Pupils equal, round and reactive to light. Has photophobia ENT: Pharynx normal. Neck: Normal inspection. Neck supple. No lymph nodes noted. No crepitus CVS: Normal heart rate and rhythm. Pulses normal. Normal S1 and S2 Respiratory: No respiratory distress. Breath sounds normal. No Wheezing. No rales Abdomen: Soft and nontender. No rigidity. No distention. Skin: Skin warm and dry. Normal skin color. Normal skin turgor. Extremities: No lower extremity edema. No Lacerations. No Rash Neuro: Oriented X 3. No motor deficit. No sensory deficit. Moving all extremities. No slurred speech. CN 2 through 12 grossly intact Psych: calm, cooperative, normal affect Course Course Course Narrative: -patient being given IV fluids, diphenhydramine, ketorolac and Reglan. -after the above-mentioned cocktail, patient states that she feels much better. Feels ready to go home. Medications Administered Generic Name Dose Route Start Last Admin Trade Name Freq PRN Reason Stop Dose Admin Sodium Chloride 1,000 mls @ 999 mls/hr 11/29/22 02:54 11/29/22 03:07 Ns IVCONT 11/29/22 03:54 999 mls/hr .Q1H1M ONE Administration Discontinued Medications Generic Name Dose Route Start Last Admin Trade Name Freq PRN Reason Stop Dose Admin Diphenhydramine HCl 25 mg 11/29/22 02:53 11/29/22 03:06 Diphenhydramine Hcl 50 Mg/Ml Vial IVPUSH 11/29/22 02:54 25 mg ONCE ONE Administration Ketorolac Tromethamine 30 mg 11/29/22 02:53 11/29/22 03:06 Ketorolac Tromethamine 30 Mg/Ml Vial IVPUSH 11/29/22 02:54 30 mg ONCE ONE Administration Metoclopramide HCl 10 mg 11/29/22 02:53 11/29/22 03:06 Metoclopramide Hcl 10 Mg/2 Ml Vial IVPUSH 11/29/22 02:54 10 mg ONCE ONE Administration Medical Decision Making Differential Diagnosis Differential Diagnoses: The differential diagnosis associated with the presentation includes (Headache, tension headache) Discharge Plan Discharge Clinical Impression: Migraine Patient Disposition: Home, Self-Care Instructions: Migraine Headache (ED) Additional Instructions: Please follow-up with your primary care physician tomorrow. If you have any worsening or new symptoms, please return to the emergency room or call 911 Prescriptions: New sumatriptan succinate 50 mg tablet See Rx Instructions .ROUTE .COMPLEX Qty: 10 0RF Rx Instructions: take 1 tab at onset of headache; if no relief may repeat 1 tab after at least 2 hrs; max = 4 tabs/24 hr metoclopramide HCl [Reglan] 5 mg tablet 5 mg PO Q6H Qty: 10 0RF Rx Instructions: Take together with sumatriptan p.r.n. severe migraine No Action doxycycline hyclate 100 mg capsule 100 mg PO BID Qty: 10 0RF prednisone 50 mg tablet 50 mg PO DAILY 5 Days Qty: 5 0RF hydrocodone-homatropine 5-1.5 mg/5 mL syrup 5 ml PO Q6H PRN (Reason: cough) Qty: 473 0RF ciprofloxacin HCl [Cipro] 500 mg tablet 500 mg PO Q12H 7 Days Qty: 14 0RF prednisone 20 mg tablet 40 mg PO DAILY 5 Days Qty: 10 0RF ciprofloxacin HCl 500 mg tablet 500 mg PO Q12H 5 Days Qty: 10 0RF cetirizine 10 mg capsule 10 mg PO DAILY PRN (Reason: allergy symptoms) Qty: 14 0RF diphenhydramine HCl [Benadryl] 25 mg capsule 50 mg PO BEDTIME PRN (Reason: allergy symptoms) Qty: 20 0RF famotidine [Pepcid] 20 mg tablet 20 mg PO DAILY Qty: 10 0RF clobetasol 0.05 % ointment 1 appl topical DAILY PRN (Reason: rash) Qty: 45 0RF clindamycin HCl 150 mg capsule 450 mg PO TID 7 Days Qty: 63 0RF
[2022-11-29] MEDS: Ketorolac Tromethamine 30 MG/ML VIAL IVPUSH (03:06)
[2022-11-29] MEDS: diphenhydrAMINE HCL 50 MG/ML VIAL 25 MG IVPUSH (03:06)
[2022-11-29] MEDS: Metoclopramide HCl 10 MG/2 ML VIAL IVPUSH (03:06)
[2022-11-29] MEDS: 0.9 % Sodium Chloride 1,000 ML 999 ML IVCONT (03:07)
--- NOTE | 2022-11-29 03:40 | PC.NURSE ---
Pt aox4. N/V. Reports headache, 07/24. IV line established with no complication. Medicated as ordered. Aware of plan of care.
== END 2022-11-29 04:23 | disposition home or self-care (01) ==
PROVIDERS: Emergency Provider Emergency Medicine
DX: G43.909 Migraine, unspecified, not intractable, without status migrainosus (principal)
CPT/HCPCS: 96361; 96374; 96375; 99284; 99285; J1200; J1885; J2765

== ENCOUNTER 2024-04-22 08:41 | Emergency (ER) | payer BC, SELFPAY ==
--- NOTE | ~2024-04-22 | XR_ITS ---
EXAMINATION: XR CHEST CLINICAL INFORMATION: Cough COMPARISON: Chest radiograph from 02/10/2022 TECHNIQUE: 2 views of the chest were obtained. FINDINGS: No focal consolidation. No pneumothorax. Trachea is midline. Cardiac mediastinal silhouette is not enlarged. No large pleural effusion. Osseous structures are intact. Soft tissues are unremarkable. XR/XR chest 2V IMPRESSION: No acute cardiopulmonary process.
[2024-04-22 08:54] VITALS: BP 142/97; PULSE 63; RESP 18; TEMP 36.4; O2SAT 99; BMI 30.1
--- OUTSIDE RECORDS SUMMARY | 2024-04-22 09:21 | XMS_ITS | Continuity of Care Document ---
Author Organization [facility] Sriram gonzalezs [facility] Address [address], [address] [place] [address]- Care Team Providers Care Beck Tender Name Role Phone Harish Espinoza MD Primary Care Physician Encounter [facility] Date(s): 04/10/21 - 06/04/21 [facility] Sriram Tolentinos [facility] [address], [address] [place] [address]- Attending Physician: Zakia Quick MD Admitting Physician: Zakia Quick MD Referring Physician: Harish Espinoza MD Allergies, Adverse Reactions, Alerts Substance Reaction Severity Status Cats Active Dust Active Grass Active Latex hives/rash Active Other Environmental Allergy Maple, [place], [place], Pollen Active Immunizations Given and Recorded Vaccine Date Status Refusal Reason SARS-CoV-2 (COVID-19) mRNA-1273 vaccine 1 12/15/20 Recorded SARS-CoV-2 (COVID-19) mRNA-1273 vaccine 12/15/20 R ecorded influenza virus vaccine, inactivated 08/17/20 Juan rded influenza virus vaccine, inactivated 09/06/19 Give n influenza virus vaccine, inactivated 08/21/14 Give n influenza virus vaccine, inactivated 2 08/14/13 Gi angelica influenza virus vaccine, inactivated 3 08/07/12 Gi angelica tetanus/diphtheria/pertussis, acel(Tdap) 05/23/15 Given FluLaval (oldterm) 4 10/12/11 Given FluLaval (oldterm) 5 08/20/09 Given diphtheria-tetanus toxoids (DT) 11/14/04 Given 1Result Comment: 2nd one 2Admin Note: at work [employer] [facility] 3Admin Note: VIS GIVEN FLULAVAL 4Admin Note: GIVEN BY DG 5Admin Note: [employer] [facility] Medications albuterol 0.083% inhalation solution 3 mL = 2.5 mg, Inhalation, Every 6 hours, PRN for wheezing/shortness of breath, # 60 each, 2 Refills, Maintenance, 10/28/20 9:59:00 EST, Solution, [facility]/pharmacy #[id number], Partial fill upon patient request if the prescription is for a schedule II opioid . Start Date: 10/28/20 Status: Ordered Diflucan 150 mg oral tablet See Instructions, 1 tablet By Mouth Once, # 2 tablet, 0 Refills, Soft Stop, 05/13/21 15:32:00 EDT, Tablet, [facility]/pharmacy #[id number], take 1 tablet by mouth, if symptoms not improve in 72 hours take another, 160.02, cm, 05/04/21 8:34:00 EDT, Height, 82.5, kg... Start Date: 05/13/21 Status: Ordered Doterra adapt (herbal) Doterra adapt (herbal), Refills 0, Maintenance, 03/10/21 8:30:00 EDT, Supply Start Date: 03/10/21 Status: Ordered Flonase Daily, 0 Refills, Maintenance, 03/10/21 8:30:00 EDT, Partial fill upon patient request if the prescription is for a schedule II opioid drug. Start Date: 03/10/21 Status: Ordered Lexapro 10 mg oral tablet 1 tablet = 10 mg, By Mouth, Daily at bedtime, 0 Refills, Maintenance, 04/12/18 10:10:29 EDT Start Date: 04/12/18 Status: Ordered LORazepam 0.5 mg oral tablet 1 tablet = 0.5 mg, By Mouth, 2 times a day, PRN as needed for anxiety, 0 Refills, Maintenance, 11/20/18 15:32:23 EST Start Date: 11/20/18 Status: Ordered Multivitamin By Mouth, Daily, 0 Refills, Maintenance, 02/02/19 14:56:55 EDT Start Date: 02/02/19 Status: Ordered Nebulizer/Compressor See Instructions, # 1 each, Maintenance, use as directed, 10/28/20 10:06:00 EST, Supply Start Date: 10/28/20 Status: Ordered Ventolin 90 mcg Inhaler Inhalation, Every 6 hours, Refills 0, Maintenance, 03/20/21 14:50:00 EDT Start Date: 03/20/21 Status: Ordered ZyrTEC 10 mg oral tablet 1 tablet = 10 mg, By Mouth, Daily in AM, # 30 tablet, 0 Refills, Maintenance, 02/02/19 14:57:17 EDT, Tablet Start Date: 02/02/19 Status: Ordered Problem List Condition Effective Dates Status Health Status Inform ant Acute bronchitis with asthma(Confirmed) Active Acute sinusitis(Confirmed) Active Anxiety(Confirmed) Active Asthma(Confirmed) Active GERD (gastroesophageal reflu x disease)(Confirmed) Active History of menorrhagia(Confirmed) Active History of pneumonia(Confirmed) Active Social History Social History Type Response Smoking Status Former smoker entered on: 05/23/15 Sex
--- OUTSIDE RECORDS SUMMARY | 2024-04-22 09:21 | XMS_ITS | Continuity of Care Document ---
Author Organization [facility] Address [address] [place] [address]- Care Team Providers Care Paper Cutter Name Role Phone Jose A NOGUEIRA, Alysha Hdez Primary Care Physician Encounter [facility] Date(s): 05/06/22 - 05/13/22 [facility] [address] [place] [address]- Encounter Diagnosis Ear pain(Discharge Diagnosis) - 05/06/22 Attending Physician: Tyler Eisenberg MD Allergies, Adverse Reactions, Alerts Substance Reaction Severity Status amoxicillin Active Cats Active Dust Active Grass Active Latex hives/rash Active Other Environmental Allergy Maple, [place], [place], Pollen Active Immunizations Given and Recorded Vaccine Date Status Refusal Reason influenza virus vaccine, inactivated 08/27/21 Juan rded influenza virus vaccine, inactivated 08/17/20 Juan rded influenza virus vaccine, inactivated 09/06/19 Give n influenza virus vaccine, inactivated 08/21/14 Give n influenza virus vaccine, inactivated 1 08/14/13 Gi angelica influenza virus vaccine, inactivated 2 08/07/12 Gi angelica SARS-CoV-2 (COVID-19) mRNA-1273 vaccine 3 12/15/20 Recorded SARS-CoV-2 (COVID-19) mRNA-1273 vaccine 12/15/20 R ecorded tetanus/diphtheria/pertussis, acel(Tdap) 05/23/15 Given FluLaval (oldterm) 4 10/12/11 Given FluLaval (oldterm) 5 08/20/09 Given diphtheria-tetanus toxoids (DT) 11/14/04 Given 1Admin Note: at work [employer] [employer] [facility] 2Admin Note: VIS GIVEN FLULAVAL 3Result Comment: 2nd one 4Admin Note: GIVEN BY DG 5Admin Note: [employer] [facility] Medications albuterol 0.083% inhalation solution 3 mL = 2.5 mg, Inhalation, Every 6 hours, PRN for wheezing/shortness of breath, # 60 each, 2 Refills, Maintenance, 10/28/20 9:59:00 EST, Solution, [facility]/pharmacy #[id number], Partial fill upon patient request if the prescription is for a schedule II opioid dr... Start Date: 10/28/20 Status: Ordered albuterol-ipratropium 3 mg-0.5 mg/3 ml inhalation solution 3 mL, Inhalation, 4 times a day, # 90 mL, 1 Refills, Maintenance, 01/11/22 13:40:00 EST, Solution, [id number], Partial fill upon patient request if the prescription is for a schedule II opioid drug., 3 mL Inhalation 4 times a day, 160.02, cm,... Start Date: 01/11/22 Status: Ordered Azithromycin 5 Day Dose Pack 250 mg oral tablet 1 pack/packet, By Mouth, Once, # 6 tablet, 0 Refills, Soft Stop, 02/15/22 13:05:00 EDT, Tablet, [id number], Partial fill upon patient request if the prescription is for a schedule II opioid drug., 160.02, cm, 01/11/22 13:08:00 EST, Height, 82.... Start Date: 02/15/22 Status: Ordered Diflucan 150 mg oral tablet 1 tablet = 150 mg, By Mouth, Once, # 1 tablet, 0 Refills, Soft Stop, 06/22/21 11:41:00 EDT, Tablet,[id number], Partial fill upon patient request if the prescription is for a schedule II opioid drug., 160.02, cm, 05/04/21 8:34:00 EDT, Height,... Start Date: 06/22/21 Status: Ordered Diflucan 150 mg oral tablet 1 tablet = 150 mg, By Mouth, Once, # 1 tablet, 0 Refills, Soft Stop, 02/13/22 15:31:00 EDT, Tablet,[id number], Partial fill upon patient request if the prescription is for a schedule II opioid drug., 160.02, cm, 01/11/22 13:08:00 EST, Height,... Start Date: 02/13/22 Status: Ordered Diflucan 150 mg oral tablet See Instructions, 1 tablet By Mouth Once, # 2 tablet, 0 Refills, Soft Stop, 05/13/21 15:32:00 EDT, Tablet, [facility]/pharmacy #[id number], take 1 tablet by mouth, if symptoms [...] of menorrhagia(Confirmed) Active History of pneumonia(Confirmed) Active Obese class I(Confirmed) Active Diagnosis Diagnosis Type Effective Dates Health Status Clini [facility] Service Informant Ear pain Discharge Diagnosis 05/06/22 Vital Signs Most recent to oldest [Reference Range]: 1 Height 160.02 cm (05/06/22 3:43 PM) Weight 78 kg (05/06/22 3:43 PM) Oxygen Saturation [94-100 %] 98 % (05/06/22 3:43 PM) Pulse Rate [55-90 bpm] 73 bpm (05/06/22 3:43 PM) Body Mass Index [18.5-24.99] 30.46 *>HHI* (05/06/22 3:43 PM) Blood Pressure [90-138/55-84 mm Hg] 117/ 79mm Hg (05/06/22 3:43 PM) Mode of Delivery (Oxygen) Room air (05/06/22 3:43 PM) Blood pressure sites Arm, right (05/06/22 3:43 PM) Weight Obtained Via Standing scale (05/06/22 3:43 PM) Social History Social History Type Response Smoking Status Former smoker entered on: 05/23/15 Sex
--- OUTSIDE RECORDS SUMMARY | 2024-04-22 09:21 | XMS_ITS | Continuity of Care Document ---
Author Organization [facility] Address [address] [place] [id number]- Care Team Providers Care Public Address Announcer Name Role Phone Harish Espinoza MD Primary Care Physician Encounter [facility] Date(s): 03/26/21 - 03/27/[address] [address] Discharge Disposition: A-D/C Home Attending Physician: Zakia Quick MD Admitting Physician: Zakia Quick MD Referring Physician: Zakia Quick MD Allergies, Adverse Reactions, Alerts Substance Reaction Severity Status Cats Active Dust Active Grass Active Latex hives/rash Active Other Environmental Allergy Maple, [place], [place], Pollen Active Immunizations Given and Recorded Vaccine Date Status Refusal Reason influenza virus vaccine, inactivated 08/17/20 Juan rded influenza virus vaccine, inactivated 09/06/19 Give n influenza virus vaccine, inactivated 08/21/14 Give n influenza virus vaccine, inactivated 1 08/14/13 Gi angelica influenza virus vaccine, inactivated 2 08/07/12 Gi angelica tetanus/diphtheria/pertussis, acel(Tdap) 05/23/15 Given FluLaval (oldterm) 3 10/12/11 Given FluLaval (oldterm) 4 08/20/09 Given diphtheria-tetanus toxoids (DT) 11/14/04 Given 1Admin Note: at work [place] [email or web address] 2Admin Note: VIS GIVEN FLULAVAL 3Admin Note: GIVEN BY 4Admin Note: [employer] [facility] Medications Acetaminophen Tablet 975 mg, Tablet, By Mouth, 03/26/21 22:00:00 EDT Start Date: 03/26/21 Stop Date: 03/26/21 Status: Completed albuterol 0.083% inhalation solution 3 mL = 2.5 mg, Inhalation, Every 6 hours, PRN for wheezing/shortness of breath, # 60 each, 2 Refills, Maintenance, 10/28/20 9:59:00 EST, Solution, [id number], Partial fill upon patient request if the prescription is for a schedule II opioid dr... Start Date: 10/28/20 Status: Ordered Augmentin 875 mg-125 mg oral tablet 1 tablet, By Mouth, Every 12 hours, # 14 tablet, 0 Refills, Maintenance, 03/20/21 11:28:00 EDT, [id number], Partial fill upon patient request if the prescription is for a schedule II opioid drug., 162, cm, 03/20/21 10:52:00 EDT, Height, 82.1,... Start Date: 03/20/21 Status: Ordered Colace sodium 100 mg oral capsule 100 mg, 1, capsule, By Mouth, 2 times a day, PRN, # 60 capsule, Refills 0, Tot. Refills 0, Maintenance, for constipation, 03/27/21 7:49:00 EDT, Route to Pharmacy Electronically, [facility]/pharmacy #[id number], Partial fill upon patient request if the prescription... Start Date: 03/27/21 Status: Ordered Doterra adapt (herbal) Doterra adapt (herbal), Refills 0, Maintenance, 03/10/21 8:30:00 EDT, Supply Start Date: 03/10/21 Status: Ordered Flonase Daily, 0 Refills, Maintenance, 03/10/21 8:30:00 EDT, Partial fill upon patient request if the prescription is for a schedule II opioid drug. Start Date: 03/10/21 Status: Ordered ibuprofen 600 mg oral tablet 600 mg, 1, tablet, By Mouth, Every 6 hours, # 30 tablet, Refills 0, Tot. Refills 0, Acute 03/30/21 7:49:00 EDT, 03/27/21 7:48:00 EDT, Route to Pharmacy Electronically, [id number], Partial fill upon patient request if the prescription is for a... Start Date: 03/27/21 Stop Date: 03/30/21 Status: Ordered Ibuprofen Tablet 600 mg, Tablet, By Mouth, 03/26/21 22:00:00 EDT Start Date: 03/26/21 Stop Date: 03/26/21 Status: Completed Lexapro 10 mg oral tablet 1 tablet = 10 mg, By Mouth, Daily at bedtime, 0 Refills, Maintenance, 04/12/18 10:10:29 EDT Start Date: 04/12/18 Status: Ordered LORazepam 0.5 mg oral tablet 1 tablet = 0.5 mg, By Mouth, 2 times a day, PRN as needed for anxiety, 0 Refills, Maintenance, 11/20/18 15:32:23 EST Start Date: 11/20/18 Status: Ordered MorPHINE Inj 4 mg, Injection, IV Push Slowly, Every 4 hours, PRN for Pain , Severe, Routine, 03/26/21 19:03:00 EDT Start Date: 03/26/21 Stop Date: 03/27/21 Status: Discontinued Multivitamin By Mouth, Daily, 0 Refills, Maintenance, 02/02/19 14:56:55 EDT Start Date: 02/02/19 Status: Ordered Nebulizer/Compressor See Instructions, # 1 each, Maintenance, use as directed, 10/28/20 10:06:00 EST, Supply Start Date: 10/28/20 Status: Ordered oxyCODONE 5 mg oral tablet 5 mg, 1, tablet, By Mouth, Every 6 hours, PRN, # 16 tablet, Refills 0, Tot. Refills 0, Acute 03/31/21 8:15:00 EDT, as needed for pain, 03/27/21 7:49:00 EDT, Route to Pharmacy Electronically, [facility]/pharmacy #[id number], Partial fill upon patient request if the... Start Date: 03/27/21 Stop Date: 03/31/21 Status: Ordered OxyCODONE IR Tablet 5 mg, Tablet, By Mouth, Every 4 hours, PRN for Pain , Severe, Routine, 03/26/21 15:09:00 EDT Start Date: 03/26/21 Stop Date: 03/27/21 Status: Discontinued Tylenol 325 mg oral tablet 650 mg, 2, tablet, By Mouth, Every 4 hours, PRN, # 30 tablet, Refills 0, Tot. Refills 0, Acute 03/30/21 7:49:00 EDT, for pain, 03/27/21 7:48:00 EDT, Route to Pharmacy Electronically, [facility]/pharmacy #[id number], Partial fill upon patient request if the prescri... Start Date: 03/27/21 Stop Date: 03/30/21 Status: Ordered Ventolin 90 mcg Inhaler Inhalation, [...] of menorrhagia(Confirmed) Active History of pneumonia(Confirmed) Active Vital Signs Most recent to oldest [Reference Range]: 1 2 3 4 5 Height 160.02 cm (03/27/21 7:45 AM) 160.02 cm (03/26/21 11:25 PM) 160.02 cm (03/26/21 7:54 PM) Weight 88.4 kg (03/26/21 5:49 PM) 77.27 kg (03/26/21 11:33 AM) 77.27 kg (03/20/21 3:08 PM) Oxygen Saturation [94-100 %] 96 % (03/27/21 7:45 AM) 94 % (03/26/21 11:25 PM) 95 % (03/26/21 7:54 PM) Pulse Rate [55-90 bpm] 67 bpm (03/27/21 7:45 AM) 74 bpm (03/26/21 11:25 PM) 79 bpm (03/26/21 7:54 PM) Body Mass Index [18.5-24.99] 30.18 *>HHI* (03/26/21 11:33 AM) 30.18 *>HHI* (03/20/21 3:08 PM) Blood Pressure [90-138/55-84 mm Hg] 130/77mm Hg (03/27/21 7:45 AM) 114/62mm Hg (03/26/21 11:25 PM) 117/75mm Hg (03/26/21 7:54 PM) Respiratory Rate [16-30 br/min] 18 br/min (03/27/21 7:45 AM) 18 br/min (03/26/21 11:54 PM) 20 br/min (03/26/21 11:43 PM) 20 br/min (03/26/21 11:43 PM) 20 br/min (03/26/21 11:43 PM) Temperature [96.8-100.4 DegF] 98.0 DegF (03/27/21 7:45 AM) 98.4 DegF (03/26/21 11:25 PM) 97.8 DegF (03/26/21 7:54 PM) Liters per Minute 1 L/min (03/26/21 5:47 PM) 5 L/min (03/26/21 3:30 PM) Mode of Delivery (Oxygen) Room air (03/27/21 7:45 AM) Room air (03/26/21 11:25 PM) Room air (03/26/21 7:54 PM) Blood pressure sites Arm, right (03/27/21 7:45 AM) Arm, right (03/26/21 11:25 PM) Arm, right (03/26/21 7:54 PM) Temperature Route Oral (03/27/21 7:45 AM) Oral (03/26/21 11:25 PM) Oral (03/26/21 7:54 PM) Dry Weight 79 kg (03/26/21 5:49 PM) 81.6 kg (03/26/21 11:33 AM) 77.27 kg (03/20/21 3:08 PM) Weight Obtained Via Bed scale (03/26/21 5:49 PM) Patient/family stated (03/20/21 3:08 PM) Dry Weight Obtained Via Standing scale (03/26/21 11:33 AM) Social History Social History Type Response Smoking Status Former smoker entered on: 05/23/15 Sex
--- OUTSIDE RECORDS SUMMARY | 2024-04-22 09:21 | XMS_ITS | Continuity of Care Document ---
Author Organization [facility] Address [address] [place] [address]- Care Team Providers Care Link Trainer Mechanic Name Role Phone Todd Quiroga DO Primary Care Physician Encounter [facility] Date(s): 12/27/22 - 01/03/23 [facility] [address] [place] [address]- Attending Physician: Greyson CANDELARIO, Leandro Referring Physician: Todd Quiroga DO Allergies, Adverse Reactions, Alerts Substance Reaction Severity Status amoxicillin Active Cats Active Dust Active Grass Active Latex hives/rash Active Other Environmental Allergy Maple, [place]vin, [place], Pollen Active Immunizations Given and Recorded Vaccine [...] (DT) 11/14/04 Given 1Admin Note: at work [employer] [facility] 2Admin Note: VIS GIVEN FLULAVAL 3Result Comment: 2nd one 4Admin Note: GIVEN BY DG 5Admin Note: Rico Medications Albuterol (Eqv-ProAir HFA) 90 mcg/inh inhalation aerosol See Instructions, INHALE 2 PUFFS EVERY 4 HOURS NEEDED FOR WHEEZING, # 25.5 Unknown, 0 Refills, [facility], 90, INHALE 2 PUFFS EVERY 4 HOURS NEEDED FOR WHEEZING, 160.02, cm, 05/06/22 15:43:00 EDT, Height, 82.6, kg, 08/06/21 16:12:00 EDT, Dry... Start Date: 06/23/22 Status: Ordered albuterol 0.083% inhalation solution 3 mL = 2.5 mg, Inhalation, Every 6 hours, PRN for wheezing/shortness of breath, # 60 each, 2 Refills, Maintenance, 10/28/20 9:59:00 EST, Solution, [facility]/pharmacy #[id number], Partial fill upon patient request if the prescription is for a schedule II opioid dr... Start Date: 10/28/20 Status: Ordered albuterol-ipratropium 3 mg-0.5 mg/3 ml inhalation solution 3 mL, Inhalation, 4 times a day, # 90 mL, 1 Refills, Maintenance, 01/11/22 13:40:00 EST, Solution, [facility]/pharmacy #[id number], Partial fill upon patient request if the prescription is for a schedule II opioid drug., 3 mL Inhalation 4 times a day, 160.02, cm,... Start Date: 01/11/22 Status: Ordered Azithromycin 5 Day Dose Pack 250 mg oral tablet See Instructions, Take 2 tablets by mouth on the first day, then 1 tablet by mouth x4 days, # 6 tablet, 0 Refills, Maintenance, 12/27/22 10:39:00 EST, Tablet, [facility]/pharmacy #[id number], Partial fill upon patient request if the prescription is for a schedule... Start Date: 12/27/22 Status: Ordered Doterra adapt (herbal) Doterra adapt [...] EST, Supply Start Date: 10/28/20 Status: Ordered prazosin 1 mg oral capsule 1 mg, 1, capsule, By Mouth, Daily at bedtime, Refills 0, Maintenance, 06/23/22 9:53:00 EDT, Partialfill upon patient request if the prescription is for a schedule II opioid drug. Start Date: 06/23/22 Status: Ordered Singulair 10 mg oral tablet 10 mg, 1, tablet, By Mouth, Daily before dinner, # 30 tablet, Refills 5, Tot. Refills 5, Maintenance, 08/26/22 16:25:00 EDT, Route to Pharmacy Electronically, [facility]/pharmacy #[id number], Partial fill upon patient request if the prescription is for a schedule... Start Date: 08/26/22 Stop Date: 02/22/23 Status: Ordered Symbicort 160mcg/4.5mcg Inhaler 2, puffs, Inhalation, 2 times a day, no substitutions, # 1 each, Refills 1, Tot. Refills 1, Maintenance, 09/09/22 9:57:00 EDT, Aerosol, Route to Pharmacy Electronically, [id number], [facility]/pharmacy #[id number], 160.02, cm, 08/26/22 15... Start Date: 09/09/22 Status: Ordered Ventolin 90 mcg Inhaler Inhalation, Every 6 hours, Refills 0, Maintenance, 03/20/21 14:50:00 EDT Start Date: 03/20/21 Status: Ordered ZyrTEC 10 mg oral tablet 1 tablet = 10 mg, By Mouth, Daily in AM, # 30 tablet, 0 Refills, Maintenance, 02/02/19 14:57:17 EDT, Tablet Start Date: 02/02/19 Status: Ordered Problem List Condition Confirmation Course Effective Dates Status Health St atus Informant Acute bronchitis with asthma Confirmed Active Acute sinusitis Confirmed Active Anxiety Confirmed Active Asthma Confirmed Active GERD (gastroesophageal reflux disease) Confirmed Active History of menorrhagia Confirmed Active History of pneumonia Confirmed Active Obese class I Confirmed Active Social History Social History Type Response Smoking Status Former smoker entered on: 05/23/15 Sex Note * Mehran Trujillo: PERFORM, SIGN, VERIFY Event Display: Patient Education/Instruction Authored Date: [id number] [facility] Clinical Summary Name GARY BUTT Age 47 Years 1975 PCP Todd Quiroga DO PCP Visit Date 12/27/2022 09:29:00 Additional Instructions: Scheduled Appointments?? Future Appointments ?*[place] [address]??[place],??[place],??[address] ?Phone:??--?Fax:??-- ?Appt. Date:??03/07/2023?9:00 AM ?Scheduled Provider:??Shiela Guzman Follow-Up Instructions ?? Diagnosis Medications: Please continue your medications until treatment is completed or stopped by your provider. Discuss any questions related to medications with your provider. New Medications [id number], [address] [place], [place] [id number], [phone] Azithromycin (Azithromycin 5 Day Dose Pack 250 mg oral tablet) Take 2 tablets by mouth on the firstday, then 1 tablet by mouth x4 days. Refills: 0. Next Dose: Medications to Continue with No Changes These medications were not printed or sent to your pharmacy Albuterol (Albuterol (Eqv-ProAir HFA) 90 mcg/inh inhalation aerosol) INHALE 2 PUFFS EVERY 4 HOURS NEEDED FOR WHEEZING. Refills: 0. Next Dose: Albuterol (albuterol 0.083% inhalation solution) 3 Milliliter Inhalation every 6 hours as needed for wheezing/shortness of breath. Refills: 2. Next Dose: Albuterol (Ventolin 90 mcg Inhaler) Inhalation every 6 hours. Next Dose: Albuterol/Ipratropium (albuterol-ipratropium 3 mg-0.5 mg/3 ml inhalation solution) 3 Milliliter Inhalation 4 times a day. Refills: 1. Next Dose: Budesonide-Formoterol (Symbicort 160mcg/4.5mcg Inhaler) 2 puff(s) Inhalation twice a day. no substitutions. Refills: 1. Next Dose: Cetirizine (ZyrTEC 10 mg oral tablet) 1 tab(s) Oral Daily in the morning. Next Dose: Durable Medical Equipment (Nebulizer/Compressor) use as directed. Refills: 0. Next Dose: Escitalopram (Lexapro 10 mg oral tablet) 1 tab(s) Oral Daily at Bedtime. Next Dose: Fluticasone Nasal (Flonase) Daily. Next Dose: Lorazepam (LORazepam 0.5 mg oral tablet) 1 tab(s) Oral twice a day as needed as needed for anxiety. Next Dose: Miscellaneous Rx (Doterra adapt (herbal)) Next Dose: Montelukast (Singulair 10 mg oral tablet) 1 tab(s) Oral Daily before dinner for 30 Days. Refills: 5. Next Dose: Multivitamin Oral Daily. Next Dose: Prazosin (prazosin 1 mg oral capsule) 1 capsule Oral Daily at Bedtime. Next Dose: Allergy Info:?? Other Environmental Allergy; Latex; Grass; Dust; Cats; amoxicillin Medications Given This Visit Future Orders ?No future orders Vital Signs Height Weight BMI Blood Pressure / Temperature Pulse Rate Respiratory Rate 02 Sat Mode of Delivery / You can now view a summary of your hospital visit from the comfort of your home through a free online portal called [facility]. [facility] is a website that allows you to securely view your medical information including discharge summary, medications and follow-up visits. ??You can alsosend a secure electronic message to your doctor???s office to request appointments, renew medications or just ask a question. You can enroll at [email or web address] or register during your next office visit. Disclaimer:?? The information provided is of a general nature and is intended to be used in conjunction with the recommendations and advice of your health care practitioner. ??Every effort has been made to ensure that the information provided is accurate and complete at the time it is provided to you however, as your needs change, or, as new ??information becomes available, different or additional instructions may be required. If you have questions, please consult with your primary care provider or pharmacist, as appropriate. ??This information is not intended to serve as substitution for assessment and evaluation by a qualified health care provider. If you do not have a primary care provider, you may find a [facility] provider by calling [facility] at [phone]. For information about the plan of care including goals and instructions for your diagnosis, please see the patient education orders section of this document. Patient Education Materials?? The content of this educational material or handout may have been modified, supplemented, or adapted from its original content and format to support your individualized medical care. Patient Care team information Care Team Personnel Name: Igor NOGUEIRA, Vicky Murrieta Position: [facility] Associate Professional Member Role: Primary Care Nurse Address: Address: [address] [place] [address]- Name: Parvin Salomon MD Position: [facility] SHEET CUTTER MD Member Role: [facility] SHEET CUTTER Physician Address: Address: [address] [place] [address] [facility], [place] [address]- Name: Todd Quiroga DO Position: [facility] Primary Care Physician Member Role: PCP Address: Address: [address] [place] [address]- Care Team Related Persons Name: NEL GARCIA Address: home [address] [place] [address] Name: SUNNY BUTT Address: home [address] [place] [address] Name: MEGGAN MCKEON Address: home [address] [place], [place] Name: CHELA SHAHID Address: home [address] [place], [place]
--- OUTSIDE RECORDS SUMMARY | 2024-04-22 09:21 | XMS_ITS | Continuity of Care Document ---
Author Organization [facility] Address [address] [place] [address]- Care Team Providers Care Roofer Gypsum Name Role Phone Harish Espinoza MD Primary Care Physician [place] [facility] - 03/27/21 [facility] [address] [place] [address]- Attending Physician: Pascual Delcid MD Allergies, Adverse Reactions, Alerts Substance Reaction Severity Status Cats Active Dust Active Grass Active Latex hives/rash Active Other Environmental Allergy Maple, [place], [place], Pollen Active Immunizations Given and Recorded Vaccine [...] (DT) 11/14/04 Given 1Admin Note: at work [employer] [facility] 2Admin Note: VIS GIVEN FLULAVAL 3Admin Note: GIVEN BY 4Admin Note: Fara Medications albuterol 0.083% inhalation solution 3 mL = 2.5 mg, Inhalation, Every 6 hours, PRN for wheezing/shortness of breath, # 60 each, 2 Refills, Maintenance, 10/28/20 9:59:00 EST, [id number], Partial fill upon patient request if the prescription is for a schedule II opioid . Start Date: 10/28/20 Status: Ordered Augmentin 875 mg-125 mg oral tablet 1 tablet, By Mouth, Every 12 hours, # 14 tablet, 0 Refills, Maintenance, 03/20/21 11:28:00 EDT, [facility]/pharmacy #[id number], Partial fill upon patient request [...] 03/27/21 7:49:00 EDT, Route to Pharmacy Electronically, [facility]/pharmacy #[id number], Partial fill upon patient request [...] 03/27/21 7:48:00 EDT, Route to Pharmacy Electronically, [facility]/pharmacy #[id number], Partial fill upon patient request if the prescription is for a... Start Date: 03/27/21 Stop Date: 03/30/21 Status: Ordered Lexapro 10 mg oral tablet [...] 03/27/21 7:49:00 EDT, Route to Pharmacy Electronically, [facility]/pharmacy #[id number], Partial fill upon patient request if the... Start Date: 03/27/21 Stop Date: 03/31/21 Status: Ordered Tylenol 325 mg oral tablet 650 mg, 2, tablet, By Mouth, Every 4 hours, PRN, # 30 tablet, Refills 0, Tot. Refills 0, Acute 03/30/21 7:49:00 EDT, for pain, 03/27/21 7:48:00 EDT, Route to Pharmacy Electronically, [facility]/pharmacy #[id number], Partial fill upon patient request [...] recent to oldest [Reference Range]: 1 Height 162 cm (03/20/21 10:52 AM) Social History Social History Type Response Smoking Status Former smoker entered on: 05/23/15 Sex
--- OUTSIDE RECORDS SUMMARY | 2024-04-22 09:21 | XMS_ITS | Continuity of Care Document ---
Author Organization [facility] Address [address] [place] [address]- Care Team Providers Care Chemistry Research Assistant Name Role Phone Jose A NOGUEIRA, Alysha Lyons Primary Care Physician Encounter [facility] Date(s): 07/20/22 - 08/19/22 [facility] [address] [place] [address]- Allergies, Adverse Reactions, Alerts Substance Reaction Severity Status amoxicillin Active Cats Active Dust Active Grass Active Latex hives/rash Active Other Environmental Allergy Maple, [place], [place], Pollen Active Immunizations Given and Recorded Vaccine [...] (DT) 11/14/04 Given 1Admin Note: at work [employer] 2Admin Note: VIS GIVEN FLULAVAL 3Result Comment: 2nd one 4Admin Note: GIVEN BY 5Admin Note: [employer] [facility] Medications Albuterol (Eqv-ProAir HFA) 90 mcg/inh inhalation aerosol See Instructions, INHALE 2 PUFFS EVERY 4 HOURS NEEDED FOR WHEEZING, # 25.5 Unknown, 0 Refills, [facility], 90, INHALE 2 PUFFS EVERY 4 HOURS NEEDED FOR WHEEZING, 160.02, cm, 05/06/22 15:43:00 EDT, Height, 82.6, kg, 08/06/21 16:12:00 EDT, Dry... Start Date: 06/23/22 Status: Ordered albuterol 0.083% inhalation solution 3 mL = 2.5 mg, Inhalation, Every 6 hours, PRN for wheezing/shortness of breath, # 60 each, 2 Refills, Maintenance, 10/28/20 9:59:00 EST, Solution, [facility]/pharmacy #[id number], Partial fill upon patient request if the prescription is for a schedule II opioid dr... Start Date: 10/28/20 Status: Ordered albuterol-ipratropium 3 mg-0.5 mg/3 ml inhalation solution 3 mL, Inhalation, 4 times a day, # 90 mL, 1 Refills, Maintenance, 01/11/22 13:40:00 EST, Solution, [facility]/pharmacy #[id number], Partial fill upon patient request if the prescription is for a schedule II opioid drug., 3 mL Inhalation 4 times a day, 160.02, cm,... Start Date: 01/11/22 Status: Ordered Azithromycin 5 Day Dose Pack 250 mg oral tablet 1 pack/packet, By Mouth, Once, # 6 tablet, 0 Refills, Soft Stop, 02/15/22 13:05:00 EDT, Tablet, [facility]/pharmacy #[id number], Partial fill upon patient request if the prescription is for a schedule II opioid drug., 160.02, cm, 01/11/22 13:08:00 EST, Height, 82.... Start Date: 02/15/22 Status: Ordered Diflucan 150 mg oral tablet 1 tablet = 150 mg, By Mouth, Once, # 1 tablet, 0 Refills, Soft Stop, 06/22/21 11:41:00 EDT, Tablet,[facility]/pharmacy #[id number], Partial fill upon patient request if the prescription is for a schedule II opioid drug., 160.02, cm, 05/04/21 8:34:00 EDT, Height,... Start Date: 06/22/21 Status: Ordered Diflucan 150 mg oral tablet 1 tablet = 150 mg, By Mouth, Once, # 1 tablet, 0 Refills, Soft Stop, 02/13/22 15:31:00 EDT, Tablet,[facility]/pharmacy #[id number], Partial fill upon patient request if the prescription is for a schedule II opioid drug., 160.02, cm, 01/11/22 13:08:00 EST, Height,... Start Date: 02/13/22 Status: Ordered Diflucan 150 mg oral tablet See Instructions, 1 tablet By Mouth Once, # 2 tablet, 0 Refills, Soft Stop, 05/13/21 15:32:00 EDT, Tablet, [facility]/pharmacy #[id number], take 1 tablet by mouth, if symptoms [...] capsule 1 mg, 1, capsule, By Mouth, 3 times a day, Refills 0, Maintenance, 06/23/22 9:53:00 EDT, Partial fill upon patient request if the prescription is for a schedule II opioid drug. Start Date: 06/23/22 Status: Ordered Ventolin 90 mcg Inhaler Inhalation, [...] Status Former smoker entered on: 05/23/15 Sex Patient Care team information Personnel Name: Alysha Naranjo NP Address: Address: [address] [place] [address] [place], [place] [address]
--- OUTSIDE RECORDS SUMMARY | 2024-04-22 09:21 | XMS_ITS | Continuity of Care Document ---
Author Organization [facility] Address [address] [place] [address]- Care Team Providers Care Copy Operator Name Role Phone Harish Espinoza MD Primary Care Physician [phone] Encounter [facility] Date(s): 06/09/21 - 07/09/21 [facility] [address] [place] [address]- Allergies, Adverse Reactions, Alerts Substance Reaction Severity Status Cats Active Dust Active Grass Active Latex hives/rash Active Other Environmental Allergy Maple, [place], [place], Pollen Active Immunizations Given and Recorded Vaccine [...] Comment: 2nd one 2Admin Note: at work [employer] [facility] 3Admin Note: VIS GIVEN FLULAVAL 4Admin Note: GIVEN BY DG 5Admin Note: [employer] Medications albuterol 0.083% inhalation solution 3 mL = 2.5 mg, Inhalation, Every 6 hours, PRN for wheezing/shortness of breath, # 60 each, 2 Refills, Maintenance, 12/15/20 9:59:00 EST, Solution, [facility]/pharmacy #[id number], Partial fill upon patient request if the prescription is for a schedule II opioid dr... Start Date: 10/28/20 Status: Ordered Diflucan 150 mg oral tablet 1 tablet = 150 mg, By Mouth, Once, # 1 tablet, 0 Refills, Soft Stop, 06/22/21 11:41:00 EDT, Tablet,[facility]/pharmacy #[id number], Partial fill upon patient request if the prescription is for a schedule II opioid drug., 160.02, cm, 05/04/21 8:34:00 EDT, Height,... Start Date: 06/22/21 Status: Ordered Diflucan 150 mg oral tablet See Instructions, 1 tablet By Mouth Once, # 2 tablet, 0 Refills, Soft Stop, 05/13/21 15:32:00 EDT, Tablet, [facility]/pharmacy #[id number], take 1 tablet by mouth, if symptoms [...]
--- OUTSIDE RECORDS SUMMARY | 2024-04-22 09:21 | XMS_ITS | Continuity of Care Document ---
Author Organization [facility] Address [address] [place] [address]- Care Team Providers Care Applique Cutter Name Role Phone Harish Espinoza MD Primary Care Physician Encounter [facility] Date(s): 06/19/21 - 07/19/21 [facility] [address] [place] [address]- Allergies, Adverse Reactions, Alerts Substance Reaction Severity Status Cats Active Dust Active Grass Active Latex hives/rash Active Other Environmental Allergy Maple, [place], [place], Pollen Active Immunizations Given and Recorded Vaccine [...] Comment: 2nd one 2Admin Note: at work [employer] 3Admin Note: VIS GIVEN FLULAVAL 4Admin Note: GIVEN BY DG 5Admin Note: [employer] Medications albuterol 0.083% inhalation solution 3 mL = 2.5 mg, Inhalation, Every 6 hours, PRN for wheezing/shortness of breath, # 60 each, 2 Refills, Maintenance, 12/15/20 9:59:00 EST, Solution, [facility]/pharmacy #[id number], Partial fill upon patient request if the prescription is for a schedule II opioid dr... Start Date: 10/28/20 Status: Ordered Diflucan 150 mg oral tablet 1 tablet = 150 mg, By Mouth, Once, # 1 tablet, 0 Refills, Soft Stop, 06/22/21 11:41:00 EDT, Tablet,[facility]/pharmacy #[id number], Partial fill upon patient request if the prescription is for a schedule II opioid drug., 160.02, cm, 05/04/21 8:34:00 EDT, Height,... Start Date: 06/22/21 Status: Ordered Diflucan 150 mg oral tablet See Instructions, 1 tablet By Mouth Once, # 2 tablet, 0 Refills, Soft Stop, 05/13/21 15:32:00 EDT, Tablet, [facility]/pharmacy #[id number], take 1 tablet by mouth, if symptoms [...]
--- OUTSIDE RECORDS SUMMARY | 2024-04-22 09:21 | XMS_ITS | Continuity of Care Document ---
Author Organization [facility] [place] Address [address] [place] [address]- Care Team Providers Care Supervisor Cell Maintenance Name Role Phone Angelique Triana NP Primary Care Physician [phone] [place] [facility] [place]26[place]20 - 01/25/21 [facility] [place] [address] [place] [address]- Allergies, Adverse Reactions, Alerts Substance Reaction Severity Status Cats Active Dust Active Other Environmental Allergy Maple, [place], [place], Pollen Active Grass Active Latex hives/rash Active Immunizations Given and Recorded Vaccine Date [...] (DT) 11/14/04 Given 1Admin Note: at work [facility] [facility] 2Admin Note: VIS GIVEN FLULAVAL 3Admin Note: GIVEN BY 4Admin Note: [employer] [facility] Medications albuterol 0.083% inhalation solution 3 mL = 2.5 mg, Inhalation, Every 6 hours, PRN for wheezing/shortness of breath, # 60 each, 2 Refills, Maintenance, 10/28/20 9:59:00 EST, [id number], Partial fill upon patient request if the prescription is for a schedule II opioid dr... Start Date: 10/28/20 Status: Ordered Lexapro 10 mg oral tablet [...] EST, Supply Start Date: 10/28/20 Status: Ordered ProAir HFA 90 mcg/inh inhalation aerosol with adapter 2, puffs, Inhalation, Every 4 hours, PRN, # 3 each, Refills 0, Tot. Refills 0, Maintenance, 06/13/20 16:14:00 EDT, Aerosol, Route to Pharmacy Electronically, [id number], [facility]/pharmacy #[id number], 160.02, cm, 11/26/19 8:32:00 EST, H... Start Date: 06/13/20 Status: Ordered Symbicort 160mcg/4.5mcg Inhaler 2, puffs, Inhalation, 2 times a day, # 1 each, Refills 3, Tot. Refills 3, Maintenance, 11/20/20 16:56:00 EST, Aerosol, Route to Pharmacy Electronically, [id number], [facility]/pharmacy #[id number], 160.02, cm, 10/28/20 9:24:00 EST, Height... Start Date: 11/20/20 Status: Ordered ZyrTEC 10 mg oral tablet 1 tablet = 10 mg, By Mouth, Daily in AM, # 30 tablet, 0 Refills, Maintenance, 02/02/19 14:57:17 EDT, Tablet Start Date: 02/02/19 Status: Ordered Problem List Condition Effective Dates Status Health Status Inform ant Acute bronchitis with asthma(Confirmed) Active Acute sinusitis(Confirmed) Active Anxiety(Confirmed) Active Asthma(Confirmed) Active History of menorrhagia(Confirmed) Active History of pneumonia(Confirmed) Active Social History Social History Type Response Smoking Status Former smoker entered on: 05/23/15 Sex
--- OUTSIDE RECORDS SUMMARY | 2024-04-22 09:21 | XMS_ITS | Continuity of Care Document ---
Author Organization [facility] Address [address] [place] [address]- Care Team Providers Care Medical Radiation Dosimetrist Name Role Phone Jose A NOGUEIRA, Alysha Lyons Primary Care Physician Encounter [facility] Date(s): 07/26/22 - 08/25/22 [facility] [address] [place] [address]- Allergies, Adverse Reactions, Alerts Substance Reaction Severity Status amoxicillin Active Cats Active Dust Active Grass Active Latex hives/rash Active Other Environmental Allergy Maple, [place], [place], Pollen Active Immunizations Given and Recorded Vaccine [...] (DT) 11/14/04 Given 1Admin Note: at work [place] [employer] [facility] 2Admin Note: VIS GIVEN FLULAVAL 3Result Comment: 2nd one 4Admin Note: GIVEN BY DG 5Admin Note: [place] [facility] Medications Albuterol (Eqv-ProAir HFA) 90 mcg/inh inhalation aerosol See Instructions, INHALE 2 PUFFS EVERY 4 HOURS NEEDED FOR WHEEZING, # 25.5 Unknown, 0 Refills, [id number], 90, INHALE 2 PUFFS EVERY 4 HOURS NEEDED FOR WHEEZING, 160.02, cm, 05/06/22 15:43:00 EDT, Height, 82.6, kg, 08/06/21 16:12:00 EDT, Dry... Start Date: 06/23/22 Status: Ordered albuterol 0.083% inhalation solution 3 mL = 2.5 mg, Inhalation, Every 6 hours, PRN for wheezing/shortness of breath, # 60 each, 2 Refills, Maintenance, 10/28/20 9:59:00 EST, Solution, [facility]/pharmacy #[id number], Partial fill upon patient request if the prescription is for a schedule II opioid dr... Start Date: 10/28/20 Status: Ordered albuterol-ipratropium 3 mg-0.5 mg/3 ml inhalation solution 3 mL, Inhalation, 4 times a day, # 90 mL, 1 Refills, Maintenance, 01/11/22 13:40:00 EST, Solution, [facility]/pharmacy #[id number], Partial fill upon patient request if the prescription is for a schedule II opioid drug., 3 mL Inhalation 4 times a day, 160.02, cm,... Start Date: 01/11/22 Status: Ordered Azithromycin 5 Day Dose Pack 250 mg oral tablet 1 pack/packet, By Mouth, Once, # 6 tablet, 0 Refills, Soft Stop, 02/15/22 13:05:00 EDT, Tablet, [facility]/pharmacy #[id number], Partial fill upon patient request if the prescription is for a schedule II opioid drug., 160.02, cm, 01/11/22 13:08:00 EST, Height, 82.... Start Date: 02/15/22 Status: Ordered Diflucan 150 mg oral tablet 1 tablet = 150 mg, By Mouth, Once, # 1 tablet, 0 Refills, Soft Stop, 06/22/21 11:41:00 EDT, Tablet,[facility]/pharmacy #[id number], Partial fill upon patient request if the prescription is for a schedule II opioid drug., 160.02, cm, 05/04/21 8:34:00 EDT, Height,... Start Date: 06/22/21 Status: Ordered Diflucan 150 mg oral tablet 1 tablet = 150 mg, By Mouth, Once, # 1 tablet, 0 Refills, Soft Stop, 02/13/22 15:31:00 EDT, Tablet,[facility]/pharmacy #[id number], Partial fill upon patient request if the prescription is for a schedule II opioid drug., 160.02, cm, 01/11/22 13:08:00 EST, Height,... Start Date: 02/13/22 Status: Ordered Diflucan 150 mg oral tablet See Instructions, 1 tablet By Mouth Once, # 2 tablet, 0 Refills, Soft Stop, 05/13/21 15:32:00 EDT, Tablet, [facility]/pharmacy #[id number], take 1 tablet by mouth, if symptoms [...] Personnel Name: Alysha Naranjo NP Address: Address: [address] [place] [address]
--- OUTSIDE RECORDS SUMMARY | 2024-04-22 09:21 | XMS_ITS | Continuity of Care Document ---
Author Organization [facility] Address [address] [place] [address]- Care Team Providers Care Motorcycle Deliverer Name Role Phone Todd Quiroga DO Primary Care Physician Encounter [facility] Date(s): 12/27/22 - 01/26/23 [facility] [address] [place] [address]- Attending Physician: Antohny Doty Admitting Physician: Admtr, [id number] Referring Physician: Admtr, Ar8 Allergies, Adverse Reactions, Alerts Substance Reaction Severity Status amoxicillin Active Cats Active Dust Active Grass Active Latex hives/rash Active Other Environmental Allergy Maple, [place], [place], Pollen Active Immunizations Given and Recorded Vaccine Date Status Refusal Reason influenza virus vaccine, inactivated 08/27/21 Juna rded influenza virus vaccine, inactivated 08/17/20 Juan [...] (DT) 11/14/04 Given 1Admin Note: at work [employer] 2Admin Note: VIS GIVEN FLULAVAL 3Result Comment: 2nd one 4Admin Note: GIVEN BY DG 5Admin Note: [employer] Medications Albuterol (Eqv-ProAir HFA) 90 mcg/inh inhalation aerosol See Instructions, INHALE 2 PUFFS EVERY 4 HOURS NEEDED FOR WHEEZING, # 25.5 Unknown, 0 Refills, [id number], 90, INHALE 2 PUFFS EVERY 4 HOURS NEEDED FOR WHEEZING, 160.02, cm, 05/06/22 15:43:00 EDT, Height, 82.6, kg, 08/06/21 16:12:00 EDT, Dry... Start Date: 06/23/22 Status: Ordered albuterol 0.083% inhalation solution 3 mL = 2.5 mg, Inhalation, Every 6 hours, PRN for wheezing/shortness of breath, # 60 each, 2 Refills, Maintenance, 10/28/20 9:59:00 EST, Solution, [facility]/pharmacy #[id number], Partial fill upon patient request if the prescription is for a schedule II opioid dr... Start Date: 10/28/20 Status: Ordered albuterol-ipratropium 3 mg-0.5 mg/3 ml inhalation solution 3 mL, Inhalation, 4 times a day, # 90 mL, 1 Refills, Maintenance, 01/11/22 13:40:00 EST, Solution, [facility]/pharmacy #[id number], Partial fill upon patient request [...] 0 Refills, Maintenance, 12/27/22 10:39:00 EST, Tablet, [facility]/pharmacy #[id number], Partial fill upon patient request [...] 08/26/22 16:25:00 EDT, Route to Pharmacy Electronically, [facility]/pharmacy #[id number], Partial fill upon patient request if the prescription is for a schedule... Start Date: 08/26/22 Stop Date: 02/22/23 Status: Ordered Symbicort 160mcg/4.5mcg Inhaler 2, puffs, Inhalation, 2 times a day, no substitutions, # 1 each, Refills 1, Tot. Refills 1, Maintenance, 09/09/22 9:57:00 EDT, Aerosol, Route to Pharmacy Electronically, [id number], [facility]/pharmacy #[id number], 160.02, cm, 08/26/22 15... Start Date: [...] on: 05/23/15 Sex Patient Care team information Care Team Personnel Name: Igor NOGUEIRA, Vicky Murrieta Position: [facility] Associate Professional Member Role: Primary Care Nurse Address: Address: [address] [place] [id number]- Name: Parvin Salomon MD Position: [facility] HOOK PULLER MD Member Role: Lifetime HOOK PULLER Physician Address: Address: [address] [place] [address] [facility], [place] [address]- Name: Todd Quiroga DO Position: [facility] Primary Care Physician Member Role: PCP Address: Address: [address] [place] [address]- Care Team Related Persons Name: NEL GARCIA Address: home [address] [facility] [place] [address] Name: SUNNY BUTT Address: home [address] [place] [address] Name: MEGGAN MCKEON Address: home [address] [place] [address] Name: CHELA SHAHID Address: home [address] [facility] [address]
--- OUTSIDE RECORDS SUMMARY | 2024-04-22 09:21 | XMS_ITS | Continuity of Care Document ---
Author Organization [facility] Address [address] [place] [address]- Care Team Providers Care Cover Inspector Name Role Phone Todd Quiroga DO Primary Care Physician [phone] [place] [facility] [place] 02/25/23 - 03/27/23 [facility] [address] [place] [address]- Allergies, Adverse Reactions, Alerts Substance Reaction Severity Status amoxicillin Active Cats Active Dust Active Grass Active Latex hives/rash Active Other Environmental Allergy Maple, [place], [place], Pollen Active Immunizations Given and Recorded Vaccine [...] (DT) 11/14/04 Given 1Admin Note: at work [place] [employer] 2Admin Note: VIS GIVEN FLULAVAL 3Result Comment: 2nd one 4Admin Note: GIVEN BY DG 5Admin Note: [employer] [facility] Medications Albuterol (Eqv-ProAir HFA) 90 mcg/inh inhalation aerosol See Instructions, INHALE 2 PUFFS EVERY 4 HOURS NEEDED FOR WHEEZING, # 25.5 Unknown, 0 Refills, [id number], 90, INHALE 2 PUFFS EVERY 4 HOURS [...] 1 Refills, Maintenance, 01/11/22 13:40:00 EST, Solution, [facility]/pharmacy #[id number], Partial fill upon patient request [...] 0 Refills, Maintenance, 12/27/22 10:39:00 EST, Tablet, [facility]/pharmacy #[id number], Partial fill upon patient request [...] EST, Supply Start Date: 10/28/20 Status: Ordered Prazosin By Mouth, Daily at bedtime, 0 Refills, Maintenance, 02/25/23 12:01:00 EDT, Partial fill upon patient request if the prescription is for a schedule II opioid drug. Start Date: 02/25/23 Status: Ordered prazosin 1 mg oral capsule [...] 08/26/22 16:25:00 EDT, Route to Pharmacy Electronically, [facility]/pharmacy #[id number], Partial fill upon patient request if the prescription is for a schedule... Start Date: 08/26/22 Stop Date: 02/22/23 Status: Ordered Symbicort 160mcg/4.5mcg Inhaler 2, puffs, Inhalation, 2 times a day, no substitutions, # 1 each, Refills 1, Tot. Refills 1, Maintenance, 09/09/22 9:57:00 EDT, Aerosol, Route to Pharmacy Electronically, [id number], [facility]/pharmacy #0373, 160.02, cm, 08/26/22 15... Start [...] Personnel Name: Igor NOGUEIRA, Vicky Murrieta Position: [facility] Associate Professional Member Role: Primary Care Nurse Address: Address: [address] [place] [address]- Name: Parvin Salomon MD Position: [facility] WINDOW SHADE CUTTER AND MOUNTER MD Member Role: Lifetime WINDOW SHADE CUTTER AND MOUNTER Physician Address: Address: [address] [place] [address] [address] [place] [address] [facility], [place] [address]- Name: Todd Quiroga DO Position: [facility] Primary Care Physician Member Role: PCP Address: Address: [address] [place] [address]- Care Team Related Persons Name: NEL GARCIA Address: home [address] [place] [address] Name: SUNNY BUTT Address: home [address] [place] [address] Name: MEGGAN MCKEON Address: home [address] [place] [address] Name: CHELA SHAHID Address: home [address] [facility] [place] [address]
--- OUTSIDE RECORDS SUMMARY | 2024-04-22 09:21 | XMS_ITS | Continuity of Care Document ---
Author Organization [facility] Address [address] [facility] [address] [place] [address]- Care Team Providers Care Completion Engineer Name Role Phone Todd Quiroga DO Primary Care Physician Encounter 01/25/24 - 02/01/24 [facility] [address], [facility] [address] [place] [address]- Attending Physician: Parvin Salomon MD Admitting Physician: Parvin Salomon MD Referring Physician: Parvin Salomon MD Allergies, Adverse Reactions, Alerts Substance Reaction Severity Status amoxicillin Active Cats Active Dust Active Grass Active Latex hives/rash Active Other Environmental Allergy Maple, [place], [place], Pollen Active Immunizations Given and Recorded Vaccine Date Status Refusal Reason SARS-CoV-2(COVID-19)mRNA-LNP vac([id number]) 10/09/23 Recorded tetanus/diphtheria/pertussis, acel(Tdap) 07/04/23 Recorded tetanus/diphtheria/pertussis, acel(Tdap) 05/23/15 Given influenza virus vaccine, inactivated 08/27/21 Juan rded influenza virus vaccine, inactivated 08/17/20 Juan rded influenza virus vaccine, inactivated 09/06/19 Give n influenza virus vaccine, inactivated 08/21/14 Give n influenza virus vaccine, inactivated 1 08/14/13 [facility] influenza virus vaccine, inactivated 2 08/07/12 [facility] SARS-CoV-2 (COVID-19) mRNA-1273 vaccine 3 12/15/20 Recorded SARS-CoV-2 (COVID-19) mRNA-1273 vaccine 12/15/20 R ecorded FluLaval (oldterm) 4 10/12/11 Given FluLaval (oldterm) 5 08/20/09 Given diphtheria-tetanus toxoids (DT) 11/14/04 Given 1Admin Note: at work [facility] [employer] [facility] [employer] 2Admin Note: VIS GIVEN FLULAVAL 3Result Comment: 2nd one 4Admin Note: GIVEN BY DG 5Admin Note: [employer] [facility] Medications Albuterol (Eqv-ProAir HFA) 90 mcg/inh inhalation aerosol See Instructions, INHALE 2 PUFFS EVERY 4 HOURS NEEDED FOR WHEEZING, # 25.5 Unknown, 0 Refills, 11/21/23 15:16:00 EST, [id number], INHALE 2 PUFFS EVERY 4 HOURS NEEDED FOR WHEEZING, 160.02, cm, 11/18/23 12:39:00 EST, Height Start Date: 11/21/23 Status: Ordered Albuterol (Eqv-ProAir HFA) 90 mcg/inh inhalation aerosol See Instructions, INHALE 2 PUFFS EVERY 4 HOURS NEEDED FOR WHEEZING, # 25.5 Unknown, 0 Refills, 11/21/23 14:32:00 EST, [facility], 90, INHALE 2 PUFFS EVERY 4 HOURS NEEDED FOR WHEEZING, 160.02, cm, 11/18/23 12:39:00 EST, Height Start Date: 11/21/23 Status: Ordered albuterol 0.083% inhalation solution 3 [...] 0 Refills, Maintenance, 12/27/22 10:39:00 EST, Tablet, [facility]/pharmacy #0373, Partial fill upon patient request if the prescription is for a schedule... Start Date: 12/27/22 Status: Ordered Azithromycin 5 Day Dose Pack 250 mg oral tablet 1 pack/packet, By Mouth, Once, # 6 tablet, 0 Refills, Soft Stop, 11/21/23 14:31:00 EST, Tablet, [facility]/pharmacy #0373, Partial fill upon patient request if the prescription is for a schedule II opioid drug., 160.02, cm, 11/18/23 12:39:00 EST, Height Start Date: 11/21/23 Status: Ordered buPROPion 300 mg/24 hours (XL) oral tablet, extended release 90 each, 0 Refill(s), TAKE 1 TABLET BY MOUTH EVERY DAY, 0 Refills, 12/16/23 9:35:00 EST, Partial fill upon patient request if the prescription is for a schedule II opioid drug. Start Date: 12/16/23 Status: Ordered Diflucan 150 mg oral tablet See Instructions, 1 tablet By Mouth Once; if symptoms still present after 72 hours, may take 2nd tablet, # 2 tablet, 0 Refills, Soft Stop, 12/16/23 9:57:00 EST, Tablet, [facility]/pharmacy #0373, Partial fill upon patient request if the prescription is for a... Start Date: 12/16/23 Status: Ordered Doterra adapt (herbal) Doterra adapt (herbal), Refills 0, Maintenance, 03/10/21 8:30:00 EDT, Supply Start Date: 03/10/21 Status: Ordered Flonase Daily, 0 Refills, Maintenance, 03/10/21 8:30:00 EDT, Partial fill upon patient request if the prescription is for a schedule II opioid drug. Start Date: 03/10/21 Status: Ordered hydrOXYzine pamoate 25 mg oral capsule TAKE 1 CAPSULE BY MOUTH TWICE A DAY NEEDED Start Date: 07/22/23 Status: Ordered Lexapro 10 mg oral tablet 2 tablet = 20 mg, By Mouth, Daily at bedtime, 0 Refills, Maintenance, 04/12/18 10:10:29 EDT Start Date: 04/12/18 Status: Ordered Multivitamin By Mouth, Daily, 0 Refills, Maintenance, 02/02/19 14:56:55 EDT Start Date: 02/02/19 Status: Ordered Nebulizer/Compressor See Instructions, # 1 each, Maintenance, use as directed, 10/28/20 10:06:00 EST, Supply Start Date: 10/28/20 Status: Ordered ondansetron 4 mg oral tablet, disintegrating 30 each, 0 Refill(s), DISSOLVE 1 TABLET BY MOUTH DAILY NEEDED, 0 Refills, 12/16/23 9:35:00 EST, Partial fill upon patient request if the prescription is for a schedule II opioid drug. Start Date: 12/16/23 Status: Ordered Prazosin By Mouth, Daily at [...] opioid drug. Start Date: 06/23/22 Status: Ordered Qvar Redihaler 80 mcg/inh inhalation aerosol 2 puffs, Inhalation, 2 times a day, rinse mouth and throat after use, # 8.7 Gm, 3 Refills, Maintenance, 07/28/23 12:24:00 EDT, [facility]/pharmacy #[id number], Partial fill upon patient request if the prescription is for a schedule II opioid drug., 2 puffs Inhalat... Start Date: 07/28/23 Status: Ordered Singulair 10 mg oral tablet 10 mg, 1, tablet, By Mouth, Daily before dinner, # 30 tablet, Refills 5, Tot. Refills 5, Maintenance, 08/26/22 16:25:00 EDT, Route to Pharmacy Electronically, [facility]/pharmacy #[id number], Partial fill upon patient request if the prescription is for a schedule... Start Date: 08/26/22 Stop Date: 02/22/23 Status: Ordered SUMAtriptan 50 mg oral tablet 9 each, 0 Refill(s), TAKE 1 TAB AT ONSET OF HEADACHE IF NO RELIEF MAY REPEAT 1 TAB AT LEAST 2 HR AFTER. MAX 4 TABS/24 HR, 0 Refills, 12/16/23 9:36:00 EST, Partial fill upon patient request if the prescription is for a schedule II opioid drug. Start Date: 12/16/23 Status: Ordered Ventolin 90 mcg Inhaler Inhalation, Every 6 hours, Refills 0, Maintenance, 03/20/21 14:50:00 EDT Start Date: 03/20/21 Status: Ordered Wellbutrin SR 150 mg/12 hours oral tablet, extended release 1 tablet = 150 mg, By Mouth, 2 times a day, 0 Refills, Maintenance, 11/18/23 12:46:00 EST, Partial fill upon patient request if the prescription is for a schedule II opioid drug. Start Date: 11/18/23 Status: Ordered ZyrTEC 10 mg oral tablet 1 tablet = 10 mg, By Mouth, Daily in AM, # 30 tablet, 0 Refills, Maintenance, 02/02/19 14:57:17 EDT, Tablet Start Date: 02/02/19 Status: Ordered Problem List Condition Confirmation Course Effective Dates Status Health St atus Informant Anxiety Confirmed Active GERD (gastroesophageal reflux disease) Confirmed Active History of menorrhagia Confirmed Active Migraine Confirmed Active Mild persistent asthma Confirmed Active Obese class I Confirmed Active Psoriasis Confirmed Active Results Radiology Reports * Exam Date Time Procedure Performing Provider Status 01/25/24 11:35 AM MM Digital Mammo Screening Tere Dumas; Naseem (Verified) Notes: (MM Digital Mammo Screening) Reason For Exam: routine screening RESULT: MM Digital Mammo Screening PROCEDURE: MM Digital Mammo Screening INDICATION: Screening for breast cancer. No known palpable abnormalities. COMPARISON: 08/27/2022 TECHNIQUE:: Full-field digital CC and MLO 3D tomosynthesis images of both breasts were acquired with implants displaced. In addition, 2-D MLO and CC views were obtained. Computer-aided detection (CAD) was utilized in the interpretation of this study DENSITY: The breast tissue is heterogeneously dense, which may obscure masses. FINDINGS: No suspicious masses, suspicious calcifications, or areas of architectural distortion areseen to suggest malignancy. There are bilateral subpectoral saline implants with no evidence of complication. IMPRESSION: No mammographic evidence of malignancy. RECOMMENDATION: Annual mammographic screening BI-RADS: 2 (Benign) Lay letter mailed to patient WSN: [id number] Ordering Physician: Parvin Salomon Dictated By: Tere Hector MD Dictated Date/Time: 01/25/24 4:21 pm Reviewed By: Tere Hector MD Signed By: Tere Hector MD Signed Date/Time: 01/25/24 4:21 pm Transcribed By: KHADAR Bail Agent Date/Time: 01/25/24 4:17 pm Birads: Social History Social History Type Response Smoking Status Former smoker entered on: 05/23/15 Sex Patient Care team information Care Team Personnel Name: Igor FORENSIC SERGEANT, Vicky Murrieta Position: [facility] Associate Professional Member Role: Primary Care Nurse Address: Address: [address] [place] [address]- Name: Parvin Salomon MD Position: [facility] STRATEGY EXECUTION CONSULTANT Member Role: Lifetime STRATEGY EXECUTION CONSULTANT Physician Address: Address: [address] [place] [address] [facility], [place] [address]- Name: Todd Quiroga DO Position: [facility] Physician - Primary Care Member Role: PCP Address: Address: [address] [place] [address]- Care Team Related Persons Name: ENL GARCIA Address: home [address] [facility] [address] Name: SUNNY BUTT Address: home [address] [place] [address] Name: MEGGAN MCKEON Address: home [address] [place] [address] Name: CHELA SHAHID Address: home [address] [place] [address]
--- OUTSIDE RECORDS SUMMARY | 2024-04-22 09:21 | XMS_ITS | Continuity of Care Document ---
Author Organization [facility] Address [address] [place] [address]- Care Team Providers Care Barrel Lathe Operator Name Role Phone Alysha Naranjo NP Primary Care Physician [place] [facility] [place](s): 09/16/22 - 10/16/22 [facility] [address] [place] [address]- Allergies, Adverse Reactions, Alerts Substance Reaction Severity Status amoxicillin Active Cats Active Dust Active Grass Active Latex hives/rash Active Other Environmental Allergy Maple, [place], [place], Pollen Active Immunizations Given and Recorded Vaccine [...] (DT) 11/14/04 Given 1Admin Note: at work [employer] 2Admin Note: VIS GIVEN FLULAVAL 3Result Comment: 2nd one 4Admin Note: GIVEN BY DG 5Admin Note: [facility] Medications Albuterol (Eqv-ProAir HFA) 90 mcg/inh inhalation aerosol See Instructions, INHALE 2 PUFFS EVERY 4 HOURS NEEDED FOR WHEEZING, # 25.5 Unknown, 0 Refills, [facility], 90, INHALE 2 PUFFS EVERY 4 HOURS [...] Pack 250 mg oral tablet See Instructions, for use only if URI not responding to supportive care - 2 tabs po day 1 and one tabs tabs 2 -5, # 1 pack/packet, 0 Refills, Acute 10/23/22 23:00:00 EST, 10/09/22 9:09:00 EST, [id number], Partial fill upon patient request i... Start Date: 10/09/22 Stop Date: 10/23/22 Status: Ordered Doterra adapt (herbal) Doterra adapt [...] opioid drug. Start Date: 06/23/22 Status: Ordered predniSONE 20 mg oral tablet See Instructions, for use only if asthma not responding to supportive care - one tab po for 3 days with food or milk, # 3 tablet, 0 Refills, Acute 10/23/22 23:00:00 EST, 10/09/22 9:08:00 EST, [facility]/pharmacy #[id number], Partial fill upon patient request i... Start Date: 10/09/22 Stop Date: 10/23/22 Status: Ordered Singulair 10 mg oral tablet 10 mg, 1, tablet, By Mouth, Daily before dinner, # 30 tablet, Refills 5, Tot. Refills 5, Maintenance, 08/26/22 16:25:00 EDT, Route to Pharmacy Electronically, [facility]/pharmacy #[id number], Partial fill upon patient request if the prescription is for a schedule... Start Date: 08/26/22 Stop Date: 02/22/23 Status: Ordered Symbicort 160mcg/4.5mcg Inhaler 2, puffs, Inhalation, 2 times a day, no substitutions, # 1 each, Refills 1, Tot. Refills 1, Maintenance, 09/09/22 9:57:00 EDT, Aerosol, Route to Pharmacy Electronically, [id number], [facility]/pharmacy #0373, 160.02, cm, 08/26/22 15... Start Date: [...] Personnel Name: Igor NOGUEIRA, Vicky Murrieta Position: [facility] Associate Professional Member Role: Primary Care Nurse Address: Address: [address] [place] [address]- Name: Parvin Salomon MD Position: [facility] DOCUMENT IMAGING MANAGER MD Member Role: Lifetime DOCUMENT IMAGING MANAGER Physician Address: Address: [address] [place] [address] [facility], [place], [place] [address] Name: Alysha Naranjo NP Position: [facility] PCO Associate Professional Member Role: PCP Address: Address: [address] [place] [address] [place] [address]- Care Team Related Persons Name: NEL GARCIA Address: home [address] [facility] [address] Name: SUNNY BUTT Address: home [address] [place] [address] Name: MEGGAN MCKEON Address: home [address] [place] [address] Name: CHELA SHAHID Address: home [address] [place] [address]
--- OUTSIDE RECORDS SUMMARY | 2024-04-22 09:21 | XMS_ITS | Continuity of Care Document ---
Author Organization [facility] Address [address] [place] [address]- Care Team Providers Care Journalism Internship Name Role Phone Khang WIND TURBINE PERFORMANCE ENGINEER, Karina Goode Primary Care Physician [facility] Date(s): 11/26/19 - 12/06/19 [facility] Adult [address] [place] [address]- [facility] Attending Physician: Admtr, Ar8 Allergies, Adverse Reactions, Alerts Substance Reaction Severity Status Cats Active Dust Active Grass Active Latex hives/rash Active Other Environmental Allergy Maple, [place], [place], Pollen Active Immunizations Given and Recorded Vaccine Date Status Refusal Reason influenza virus vaccine, inactivated 09/06/19 Give n influenza virus vaccine, inactivated 08/21/14 Give n influenza virus vaccine, inactivated 1 08/14/13 Gi angelica influenza virus vaccine, inactivated 2 08/07/12 Gi angelica tetanus/diphtheria/pertussis, acel(Tdap) 05/23/15 Given FluLaval (oldterm) 3 10/12/11 Given FluLaval (oldterm) 4 08/20/09 Given diphtheria-tetanus toxoids (DT) 11/14/04 Given 1Admin Note: at work [facility] 2Admin Note: VIS GIVEN FLULAVAL 3Admin Note: GIVEN BY 4Admin Note: A [place] [employer] [facility] Medications Flovent HFA 110 mcg/inh inhalation aerosol 2 puffs, Inhalation, 2 times a day, # 12 Gm, 0 Refills, Maintenance, 03/05/19 9:53:32 EDT, Aerosol Start Date: 03/05/19 Status: Ordered Lexapro 10 mg oral tablet [...] 14:56:55 EDT Start Date: 02/02/19 Status: Ordered ProAir HFA 90 mcg/inh inhalation aerosol with adapter 2, puffs, Inhalation, Every 4 hours, PRN, # 8.5 Gm, Refills 1, Tot. Refills 1, Maintenance, 11/26/19 8:50:00 EST, Aerosol, Route to Pharmacy Electronically, [id number], [facility]/pharmacy #[id number], 160.02, cm, 11/26/19 8:32:00 EST, He... Start Date: 11/26/19 Status: Ordered ZyrTEC 10 mg oral tablet 1 tablet = 10 mg, By Mouth, Daily in AM, # 30 tablet, 0 Refills, Maintenance, 02/02/19 14:57:17 EDT, Tablet Start Date: 02/02/19 Status: Ordered Problem List Condition Effective Dates Status Health Status Inform ant Anxiety(Confirmed) Active History of menorrhagia(Confirmed) Active History of pneumonia(Confirmed) Active Social History Social History Type Response Smoking Status Former smoker entered on: 05/23/15 Sex
--- OUTSIDE RECORDS SUMMARY | 2024-04-22 09:21 | XMS_ITS | Continuity of Care Document ---
Author Organization [facility] Address [address] [facility] [place] [address]- Care Team Providers Care Cotton Ball Bagger Name Role Phone Jose A NOGUEIRA, Alysha Lyons Primary Care Physician Encounter 08/27/22 - 09/03/22 [facility] [address], [address] [place] [address]- Attending Physician: Jose A NOGUEIRA, Alysha Lyons Admitting Physician: [facility] , Self Referral Referring Physician: Jose A NOGUEIRA, Alysha Lyons Allergies, Adverse Reactions, Alerts Substance Reaction Severity Status amoxicillin Active Cats Active Other Environmental Allergy Maple, [place], [place], Pollen Active Dust Active Grass Active Latex hives/rash Active Immunizations [...] (DT) 11/14/04 Given 1Admin Note: at work [employer] [facility] 2Admin Note: VIS GIVEN FLULAVAL 3Result Comment: 2nd one 4Admin Note: GIVEN BY DG 5Admin Note: [employer] Medications Advair Diskus 250 mcg-50 mcg inhalation powder 1, inhalation, Inhalation, 2 times a day, rinse mouth and throat after use, # 1 each, Refills 3, Tot. Refills 3, Maintenance, 08/26/22 16:24:00 EDT, Powder, Route to Pharmacy Electronically, [id number], [facility]/pharmacy #[id number], 16... Start Date: 08/26/22 Status: Ordered Albuterol (Eqv-ProAir HFA) 90 mcg/inh inhalation aerosol See Instructions, INHALE 2 PUFFS EVERY 4 HOURS NEEDED FOR WHEEZING, # 25.5 Unknown, 0 Refills, [id number], 90, INHALE 2 PUFFS EVERY 4 HOURS NEEDED FOR WHEEZING, 160.02, cm, 05/06/22 15:43:00 EDT, Height, 82.6, kg, 08/06/21 16:12:00 EDT, Dry... Start Date: 06/23/22 Status: Ordered albuterol 0.083% inhalation solution 3 mL = 2.5 mg, Inhalation, Every 6 hours, PRN for wheezing/shortness of breath, # 60 each, 2 Refills, Maintenance, 10/28/20 9:59:00 EST, Solution, [facility]/pharmacy #[id number], Partial fill upon patient request if the prescription is for a schedule II opioid dr... Start Date: 10/28/20 Status: Ordered albuterol-ipratropium 3 mg-0.5 mg/3 ml inhalation solution 3 mL, Inhalation, 4 times a day, # 90 mL, 1 Refills, Maintenance, 01/11/22 13:40:00 EST, Solution, [facility]/pharmacy #[id number], Partial fill upon patient request if the prescription is for a schedule II opioid drug., 3 mL Inhalation 4 times a day, 160.02, cm,... Start Date: 01/11/22 Status: Ordered Doterra adapt (herbal) Doterra adapt [...] 08/26/22 16:25:00 EDT, Route to Pharmacy Electronically, [facility]/pharmacy #[id number], Partial fill upon patient request if the prescription is for a schedule... Start Date: 08/26/22 Stop Date: 02/22/23 Status: Ordered Ventolin 90 mcg Inhaler Inhalation, [...] Personnel Name: Alysha Naranjo NP Address: Address: [address] [place] [address]
--- OUTSIDE RECORDS SUMMARY | 2024-04-22 09:21 | XMS_ITS | Continuity of Care Document ---
Author Organization [facility] Address [address] [place] [address]- Care Team Providers Care Dryland Farmer Name Role Phone Todd Quiroga DO Primary Care Physician Encounter [facility] Date(s): 02/25/23 - 03/27/23 [facility] [address] [place] [address]- Attending Physician: AdmAnthony ramirez Admitting Physician: Admtr, Ar8 Referring Physician: Admtr, Ar8 Allergies, Adverse Reactions, Alerts Substance Reaction Severity Status amoxicillin Active Cats Active Dust Active Grass Active Latex hives/rash Active Other Environmental Allergy Maple, [place], [place], Pollen Active Immunizations Given and Recorded Vaccine [...] (DT) 11/14/04 Given 1Admin Note: at work [place] [employer] 2Admin Note: VIS GIVEN FLULAVAL 3Result Comment: 2nd one 4Admin Note: GIVEN BY DG 5Admin Note: [employer] Medications Albuterol (Eqv-ProAir HFA) 90 mcg/inh inhalation aerosol See Instructions, INHALE 2 PUFFS EVERY 4 HOURS NEEDED FOR WHEEZING, # 25.5 Unknown, 0 Refills, [id number], 90, INHALE 2 PUFFS EVERY 4 HOURS [...] 0 Refills, Maintenance, 12/27/22 10:39:00 EST, Tablet, [facility]/pharmacy #[id number], Partial fill upon patient [...] 08/26/22 16:25:00 EDT, Route to Pharmacy Electronically, [facility]/pharmacy #[id number], Partial fill upon patient request if the prescription is for a schedule... Start Date: 08/26/22 Stop Date: 02/22/23 Status: Ordered Symbicort 160mcg/4.5mcg Inhaler 2, puffs, Inhalation, 2 times a day, no substitutions, # 1 each, Refills 1, Tot. Refills 1, Maintenance, 09/09/22 9:57:00 EDT, Aerosol, Route to Pharmacy Electronically, [id number], [facility]/pharmacy #[id number], 160.02, cm, 08/26/22 15... Start [...] Name: Igor NOGUEIRA, Vicky Murrieta Position: [facility] Associate Professional Member Role: Primary Care Nurse Address: Address: [address] [place] [address]- Name: Parvin Salomon MD Position: [facility] MULTIMEDIA COORDINATOR MD Member Role: Lifetime MULTIMEDIA COORDINATOR Physician Address: Address: [address] [place] [address] [facility], [place] [address]- Name: Todd Quiroga DO Position: [facility] Primary Care Physician Member Role: PCP Address: Address: [address] [place] [address]- Care Team Related Persons Name: NEL GARCIA Address: home [address] [facility] [facility] [address] Name: SUNNY BUTT Address: home [address] [place] [address] Name: MEGGAN MCKEON Address: home [address] [place] [id number] Name: CHELA SHAHID Address: home [address] [place] [address]
--- OUTSIDE RECORDS SUMMARY | 2024-04-22 09:21 | XMS_ITS | Continuity of Care Document ---
Author Organization [facility] Address [address] [place] [address]- Care Team Providers Care Dental Biller Name Role Phone Khang INDIRECT SALES EXEC, Karina Goode Primary Care Physician Encounter [facility] Date(s): 12/19/19 - 12/19/[address] [address]- [facility] Attending Physician: Parvin Salomon MD Allergies, Adverse Reactions, Alerts Substance Reaction Severity Status Cats Active Dust Active Grass Active Latex hives/rash Active Other Environmental Allergy Maple, [place], [place], Pollen Active Immunizations Given and Recorded Vaccine [...] (DT) 11/14/04 Given 1Admin Note: at work [facility] 2Admin Note: VIS GIVEN FLULAVAL 3Admin Note: GIVEN BY 4Admin Note: [employer] [place] Medications Flovent HFA 110 mcg/inh inhalation aerosol [...] 8:50:00 EST, Aerosol, Route to Pharmacy Electronically, [id number], [facility]/pharmacy #[id number], 160.02, cm, 11/26/19 8:32:00 EST, He... [...]
--- OUTSIDE RECORDS SUMMARY | 2024-04-22 09:21 | XMS_ITS | Continuity of Care Document ---
Author Organization [facility] Address [address] [place] [address]- Care Team Providers Care Judicial Reporter Name Role Phone Olga CANDELARIO, Harish Rivera Primary Care Physician [facility]counter [facility] Date(s): 05/04/21 - 06/03/21 [facility] Adult [address] [place] [address]- Allergies, Adverse Reactions, Alerts Substance Reaction Severity Status Cats Active Dust Active Grass Active Latex hives/rash Active Other Environmental Allergy Maple, [place], [place], Pollen Active Immunizations Given and Recorded Vaccine [...] Comment: 2nd one 2Admin Note: at work [place] [facility] 3Admin Note: VIS GIVEN FLULAVAL 4Admin Note: GIVEN BY DG 5Admin Note: [employer] [place] Medications albuterol 0.083% inhalation solution 3 mL = 2.5 mg, Inhalation, Every 6 hours, PRN for wheezing/shortness of breath, # 60 each, 2 Refills, Maintenance, 10/28/20 9:59:00 EST, Solution, [facility]/pharmacy #[id number], Partial fill upon patient request if the prescription is for a schedule II opioid . Start Date: 10/28/20 Status: Ordered Diflucan 150 mg oral tablet See Instructions, 1 tablet By Mouth Once, # 2 tablet, 0 Refills, Soft Stop, 05/13/21 15:32:00 EDT, Tablet, [facility]/pharmacy #[id number], take 1 tablet by mouth, if symptoms [...]
--- OUTSIDE RECORDS SUMMARY | 2024-04-22 09:21 | XMS_ITS | Continuity of Care Document ---
Author Organization [facility] Address [address] [place] [address]- Care Team Providers Care Land Surveyor Assistant Name Role Phone Jose A NOGUEIRA, Alysha Hdez Primary Care Physician Encounter [facility] Date(s): 02/13/22 - 02/20/22 [facility] [address] [place] [address]- Encounter Diagnosis Acute sinusitis(Discharge Diagnosis) - 02/13/22 Attending Physician: Troy NOGUEIRA, Jillian Referring Physician: Jose A NOGUEIRA, Alysha Hdez Allergies, Adverse Reactions, Alerts Substance Reaction Severity Status amoxicillin Active Cats Active Dust Active Grass Active Latex hives/rash Active Other Environmental Allergy Maple, [place], [place], Pollen Active Immunizations Given and Recorded Vaccine Date Status Refusal Reason influenza virus vaccine, inactivated 08/27/21 Jaun rded influenza virus vaccine, inactivated 08/17/20 Juan rded influenza virus vaccine, inactivated 09/06/19 Give n influenza virus vaccine, inactivated 08/21/14 Give n influenza virus vaccine, inactivated 1 08/14/13 Gi angeliac influenza virus vaccine, inactivated 2 08/07/12 Gi angelica SARS-CoV-2 (COVID-19) mRNA-1273 vaccine 3 12/15/20 Recorded SARS-CoV-2 (COVID-19) mRNA-1273 vaccine 12/15/20 R ecorded tetanus/diphtheria/pertussis, acel(Tdap) 05/23/15 Given FluLaval (oldterm) 4 10/12/11 Given FluLaval (oldterm) 5 08/20/09 Given diphtheria-tetanus toxoids (DT) 11/14/04 Given 1Admin Note: at work [facility] 2Admin Note: VIS GIVEN FLULAVAL 3Result Comment: 2nd one 4Admin Note: GIVEN BY DG 5Admin Note: [employer] [facility] Medications albuterol 0.083% inhalation solution 3 mL [...] Refills, Soft Stop, 05/13/21 15:32:00 EDT, Tablet, [facility]/pharmacy #[id number], take 1 tablet by mouth, if symptoms [...] of menorrhagia(Confirmed) Active History of pneumonia(Confirmed) Active Diagnosis Diagnosis Type Effective Dates Health Status Cl inical Service Informant Acute sinusitis Discharge Diagnosis 02/13/22 Social History Social History Type Response Smoking Status Former smoker entered on: 05/23/15 Sex
--- OUTSIDE RECORDS SUMMARY | 2024-04-22 09:21 | XMS_ITS | Continuity of Care Document ---
Author Organization [facility] Address [address] [place] [address]- Care Team Providers Care Frame Trimmer Name Role Phone Todd Quiroga DO Primary Care Physician En[place] [facility] Date(s): 07/26/23 - 08/25/23 [facility] [address] [place], [place] [address] Allergies, Adverse Reactions, Alerts Substance Reaction Severity Status amoxicillin Active Cats Active Dust Active Grass Active Latex hives/rash Active Other Environmental Allergy Maple, [place], [place], Pollen Active Immunizations Given and Recorded Vaccine [...] (DT) 11/14/04 Given 1Admin Note: at work [employer] 2Admin Note: VIS GIVEN FLULAVAL 3Result Comment: 2nd one 4Admin Note: GIVEN BY DG 5Admin Note: [employer] [facility] Medications Albuterol (Eqv-ProAir HFA) 90 mcg/inh inhalation aerosol See Instructions, INHALE 2 PUFFS EVERY 4 HOURS NEEDED FOR WHEEZING, # 25.5 Unknown, 0 Refills, [facility], 90, INHALE 2 PUFFS EVERY 4 HOURS NEEDED FOR WHEEZING, 160.02, cm, 05/06/22 15:43:00 EDT, Height, 82.6, kg, 08/06/21 16:12:00 EDT, Dry... Start Date: 06/23/22 Status: Ordered albuterol 0.083% inhalation solution 3 mL = 2.5 mg, Inhalation, Every 6 hours, PRN for wheezing/shortness of breath, # 60 each, 2 Refills, Maintenance, 10/28/20 9:59:00 EST, Solution, [facility]/pharmacy #[id number], Partial fill upon patient request if the prescription is for a schedule II opioid dr... Start Date: 10/28/20 Status: Ordered albuterol-ipratropium 3 mg-0.5 mg/3 ml inhalation solution 3 mL, Inhalation, 4 times a day, # 90 mL, 1 Refills, Maintenance, 01/11/22 13:40:00 EST, Solution, [facility]/pharmacy #[id number], Partial fill upon patient [...] 0 Refills, Maintenance, 12/27/22 10:39:00 EST, Tablet, [facility]/pharmacy #[id number], Partial fill upon patient [...] Gm, 3 Refills, Maintenance, 07/28/23 12:24:00 EDT, [facility]/pharmacy #[id number], Partial fill upon patient request if the prescription is for a schedule II opioid drug., 2 puffs Inhalat... Start Date: 07/28/23 Status: Ordered Singulair 10 mg oral tablet 10 mg, 1, tablet, By Mouth, Daily before dinner, # 30 tablet, Refills 5, Tot. Refills 5, Maintenance, 08/26/22 16:25:00 EDT, Route to Pharmacy Electronically, [facility]/pharmacy #[id number], Partial fill upon patient [...] Confirmed Active History of pneumonia Confirmed Active Mild persistent asthma Confirmed Active Obese class I Confirmed Active Social History Social History Type Response Smoking Status Former smoker entered on: 05/23/15 Sex Patient Care team information Care Team Personnel Name: Igor NOGUEIRA, Vicky Murrieta Position: [facility] Associate Professional Member Role: Primary Care Nurse Address: Address: [address] [place] [address]- Name: Parvin Salomon MD Position: [facility] CLUSTER BORE OPERATOR MD Member Role: Lifetime CLUSTER BORE OPERATOR Physician Address: Address: [address] [place] [address] [facility], [place] [address]- Name: Todd Quiroga DO Position: [facility] Physician - Primary Care Member Role: PCP Address: Address: [address] [place] [address]- Care Team Related Persons Name: NEL GARCIA Address: home [address] [facility] [address] [facility] [place] [address] Name: SUNNY BUTT Address: home [address] [place] [address] Name: MEGGAN MCKEON Address: home [address] [place] [address] Name: CHELA SHAHID Address: home [address] [place] [address]
--- OUTSIDE RECORDS SUMMARY | 2024-04-22 09:22 | XMS_ITS | Continuity of Care Document ---
Author Organization [facility] Address [address], [address] [place] [address]- Care Team Providers Care Production Solderer Name Role Phone Olga CANDELARIO, Harish Rivera Primary Care Physician [phone] Encounter [facility] Date(s): 04/06/21 - 05/06/21 [facility] Tolentinos [facility] [address], [address] [place] [address]- Allergies, Adverse Reactions, Alerts Substance Reaction Severity Status Cats Active Dust Active Grass Active Latex hives/rash Active Other Environmental Allergy Maple, [place], [place], Pollen Active Immunizations Given and Recorded Vaccine [...] Comment: 2nd one 2Admin Note: at work [facility] 3Admin Note: VIS GIVEN FLULAVAL 4Admin Note: GIVEN BY 5Admin Note: [employer] [place] Medications albuterol 0.083% inhalation solution 3 mL = 2.5 mg, Inhalation, Every 6 hours, PRN for wheezing/shortness of breath, # 60 each, 2 Refills, Maintenance, 10/28/20 9:59:00 EST, Solution, [facility]/pharmacy #[id number], Partial fill upon patient request if the prescription is for a schedule II opioid drMarissa. Start Date: 10/28/20 Status: Ordered Doterra adapt (herbal) Doterra adapt (herbal), Refills 0, Maintenance, 03/10/21 8:30:00 EDT, Supply Start Date: 03/10/21 Status: Ordered doxycycline hyclate 100 mg oral capsule 1 capsule = 100 mg, By Mouth, 2 times a day, for 7 days, # 14 capsule, 0 Refills, Acute 05/11/21 15:50:00 EDT, 05/04/21 15:50:00 EDT, Capsule[facility], Partial fill upon patient request ifthe prescription is for a schedule II opioid drug.,... Start Date: 05/04/21 Stop Date: 05/11/21 Status: Ordered Flonase Daily, 0 Refills, Maintenance, [...] EST, Supply Start Date: 10/28/20 Status: Ordered predniSONE 20 mg oral tablet 1 tablet = 20 mg, By Mouth, Daily, for 3 days, # 3 tablet, 0 Refills, Acute 05/07/21 8:50:00 EDT, 05/04/21 8:50:00 EDT, [facility]/pharmacy #[id number], Partial fill upon patient request if the prescription is for a schedule II opioid drug., 160.02, cm, 05/04/21 8... Start Date: 05/04/21 Stop Date: 05/07/21 Status: Ordered Ventolin 90 mcg Inhaler Inhalation, [...]
--- OUTSIDE RECORDS SUMMARY | 2024-04-22 09:22 | XMS_ITS | Continuity of Care Document ---
Author Organization [facility] Address [address] [place] [address]- Care Team Providers Care Fowl Blood Tester Name Role Phone Todd Quiroga DO Primary Care Physician [place] [facility] Date(s): 12/13/23 - 01/12/24 [facility] [address] [place] [address]- Allergies, Adverse Reactions, Alerts Substance Reaction Severity Status amoxicillin Active Cats Active Dust Active Latex hives/rash Active Other Environmental Allergy Maple, [place], [place], Pollen Active Grass Active Immunizations Given and Recorded Vaccine Date Status Refusal Reason SARS-CoV-2(COVID-19)mRNA-LNP vac([id number]) 10/09/23 Recorded tetanus/diphtheria/pertussis, acel(Tdap) 07/04/23 Recorded tetanus/diphtheria/pertussis, [...] (DT) 11/14/04 Given 1Admin Note: at work [employer] 2Admin Note: VIS GIVEN FLULAVAL 3Result Comment: 2nd one 4Admin Note: GIVEN BY ALONDRA 5Admin Note: [facility] Medications Albuterol (Eqv-ProAir HFA) 90 mcg/inh [...] 0 Refills, Maintenance, 12/27/22 10:39:00 EST, Tablet, [id number], Partial fill upon patient request if the prescription is for a schedule... Start Date: 12/27/22 Status: Ordered Azithromycin 5 Day Dose Pack 250 mg oral tablet 1 pack/packet, By Mouth, Once, # 6 tablet, 0 Refills, Soft Stop, 11/21/23 14:31:00 EST, Tablet, [facility]/pharmacy #0373, Partial fill upon patient [...] Refills, Soft Stop, 12/16/23 9:57:00 EST, Tablet, [facility]/pharmacy #0373, Partial fill upon patient [...] Gm, 3 Refills, Maintenance, 07/28/23 12:24:00 EDT, [facility]/pharmacy #[id number], Partial fill upon patient request if the prescription is for a schedule II opioid drug., 2 puffs Inhalat... Start Date: 07/28/23 Status: Ordered Singulair 10 mg oral tablet 10 mg, 1, tablet, By Mouth, Daily before dinner, # 30 tablet, Refills 5, Tot. Refills 5, Maintenance, 08/26/22 16:25:00 EDT, Route to Pharmacy Electronically, [facility]/pharmacy #[id number], Partial fill upon patient [...] class I Confirmed Active Psoriasis Confirmed Active Social History Social History Type Response Smoking Status Former smoker entered on: 05/23/15 Sex Patient Care team information Care Team Personnel Name: Vicky Costa NP Position: [facility] Associate Professional Member Role: Primary Care Nurse Address: Address: [address] [place] [address]- Name: Parvin Salomon MD Position: [facility] NURSE OFFICE MD Member Role: Lifetime NURSE OFFICE Physician Address: Address: [address] [place] [address] [facility], [place] [address]- Name: Todd Quiroga DO Position: [facility] Physician - Primary Care Member Role: PCP Address: Address: [address] [place] [address]- Care Team Related Persons Name: NEL GARCIA Address: home [address] [address] Name: SUNNY BUTT Address: home [address] [facility] [place] [address] Name: MEGGAN MCKEON Address: home [address] [place] [address] Name: CHELA SHAHID Address: home [address] [place] [address]
--- OUTSIDE RECORDS SUMMARY | 2024-04-22 09:22 | XMS_ITS | Continuity of Care Document ---
Author Organization [facility] Delta lt Address [address] [place] [address]- Care Team Providers Care Residence Leasing Agent Name Role Phone Agnelique Triana NP Primary Care Physician Encounter [facility] [place] Date(s): 10/28/20 - 11/04/20 [facility] Adult [address] [place] [address]- Encounter Diagnosis Asthma(Discharge Diagnosis) - 10/28/20 Attending Physician: Angelique Triana NP Allergies, Adverse Reactions, Alerts Substance Reaction Severity Status Cats Active Dust Active Grass Active Latex hives/rash Active Other Environmental Allergy Maple, [place], [place], Pollen Active Immunizations Given and Recorded Vaccine [...] (DT) 11/14/04 Given 1Admin Note: at work [employer] 2Admin Note: VIS GIVEN FLULAVAL 3Admin Note: GIVEN BY DG 4Admin Note: Lindsey Shell [facility] Medications albuterol 0.083% inhalation solution 3 mL = 2.5 mg, Inhalation, Every 6 hours, PRN for wheezing/shortness of breath, # 60 each, 2 Refills, Maintenance, 10/28/20 9:59:00 EST, Solution, [id number], Partial fill upon patient request if the prescription is for a schedule II opioid Start Date: 10/28/20 Status: Ordered Lexapro 10 [...] 16:14:00 EDT, Aerosol, Route to Pharmacy Electronically, [id number], [facility]/pharmacy #0373, 160.02, cm, 11/26/19 8:32:00 EST, H... Start Date: 06/13/20 Status: Ordered Symbicort 160mcg/4.5mcg Inhaler 2, puffs, Inhalation, 2 times a day, # 1 each, Refills 3, Tot. Refills 3, Maintenance, 11/04/20 14:55:00 EST, Aerosol, Route to Pharmacy Electronically, [id number], [facility]/pharmacy #0373, 160.02, cm, 10/28/20 9:24:00 EST, Height... Start Date: 11/04/20 Status: Ordered ZyrTEC 10 mg oral tablet [...] Dates Health Status Clini mc Service Informant Asthma Discharge Diagnosis 10/28/20 Vital Signs Most recent to oldest [Reference Range]: 1 Height 160.02 cm (10/28/20 9:24 AM) Social History Social History Type Response Smoking Status Former smoker entered on: 05/23/15 Sex
--- OUTSIDE RECORDS SUMMARY | 2024-04-22 09:22 | XMS_ITS | Continuity of Care Document ---
Author Organization [facility] Address [address] [place] [address]- Care Team Providers Care Logging Supervisor Name Role Phone Jose A NOGUEIRA, Alysha Hdez Primary Care Physician [phone] [place] [facility] 05/06/22 - 06/05/22 [facility] [address] [place] [address]- Attending Physician: Anthony Doty Admitting Physician: AdmAnthony ramirez Referring Physician: AdmtrAnthony Allergies, Adverse Reactions, Alerts Substance Reaction Severity Status amoxicillin Active Cats Active Dust Active Other Environmental Allergy Maple, [place], [place], Pollen Active Grass Active Latex hives/rash Active [...] (DT) 11/14/04 Given 1Admin Note: at work [employer] 2Admin Note: VIS GIVEN FLULAVAL 3Result Comment: 2nd one 4Admin Note: GIVEN BY DG 5Admin Note: [facility] Medications albuterol 0.083% inhalation solution [...] Refills, Soft Stop, 05/13/21 15:32:00 EDT, Tablet, [facility]/pharmacy #[id number], take 1 tablet by mouth, if symptoms [...] of pneumonia(Confirmed) Active Obese class I(Confirmed) Active Social History Social History Type Response Smoking Status Former smoker entered on: 05/23/15 Sex
--- OUTSIDE RECORDS SUMMARY | 2024-04-22 09:22 | XMS_ITS | Continuity of Care Document ---
Author Organization [facility] Devyn Delta lt Address [address] [place] [address]- Care Team Providers Care Newsagent Name Role Phone Jose A NOGUEIRA, Alysha Hdez Primary Care Physician [phone] Encounter [facility] Date(s): 01/11/22 - 02/10/22 [facility] Adult [address] [place] [address]- Attending Physician: Admtr, Ar8 Allergies, Adverse Reactions, Alerts Substance Reaction Severity Status Cats Active Dust Active Grass Active Latex hives/rash Active Other Environmental Allergy Maple, [place], [place], Pollen Active Immunizations Given and Recorded Vaccine [...] (DT) 11/14/04 Given 1Admin Note: at work [employer] 2Admin Note: VIS GIVEN FLULAVAL 3Result Comment: 2nd one 4Admin Note: GIVEN BY DG 5Admin Note: [employer] Medications albuterol 0.083% inhalation solution 3 mL = 2.5 mg, Inhalation, Every 6 hours, PRN for wheezing/shortness of breath, # 60 each, 2 Refills, Maintenance, 10/28/20 9:59:00 EST, Solution, [facility]/pharmacy #[id number], Partial fill upon patient request if the prescription is for a schedule II opioid dr... Start Date: 10/28/20 Status: Ordered albuterol-ipratropium 3 mg-0.5 mg/3 ml inhalation solution 3 mL, Inhalation, 4 times a day, # 90 mL, 1 Refills, Maintenance, 01/11/22 13:40:00 EST, Solution, [facility]/pharmacy #[id number], Partial fill upon patient request if the prescription is for a schedule II opioid drug., 3 mL Inhalation 4 times a day, 160.02, cm,... Start Date: 01/11/22 Status: Ordered Diflucan 150 mg oral tablet 1 tablet = 150 mg, By Mouth, Once, # 1 tablet, 0 Refills, Soft Stop, 06/22/21 11:41:00 EDT, Tablet,[facility]/pharmacy #[id number], Partial fill upon patient request if the prescription is for a schedule II opioid drug., 160.02, cm, 05/04/21 8:34:00 EDT, Height,... Start Date: 06/22/21 Status: Ordered Diflucan 150 mg oral tablet See Instructions, 1 tablet By Mouth Once, # 2 tablet, 0 Refills, Soft Stop, 05/13/21 15:32:00 EDT, Tablet, [facility]/pharmacy #[id number], take 1 tablet by mouth, if symptoms [...]
--- OUTSIDE RECORDS SUMMARY | 2024-04-22 09:22 | XMS_ITS | Continuity of Care Document ---
Author Organization [facility] Address [address] [place] [address]- Care Team Providers Care Gaming Cage Worker Name Role Phone Alysha Naranjo NP Primary Care Physician [place] [facility] [place] 09/08/22 - 10/08/22 [facility] [address] [place] [address]- Allergies, Adverse Reactions, Alerts Substance Reaction Severity Status amoxicillin Active Cats Active Dust Active Grass Active Latex hives/rash Active Other Environmental Allergy Maple, [place], [place], Pollen Active Immunizations Given and Recorded Vaccine [...] (DT) 11/14/04 Given 1Admin Note: at work [employer] 2Admin Note: VIS GIVEN FLULAVAL 3Result Comment: 2nd one 4Admin Note: GIVEN BY DG 5Admin Note: [employer] [place] [facility] Medications Albuterol (Eqv-ProAir HFA) 90 mcg/inh inhalation aerosol See Instructions, INHALE 2 PUFFS EVERY 4 HOURS NEEDED FOR WHEEZING, # 25.5 Unknown, 0 Refills, [id number], 90, INHALE 2 PUFFS EVERY 4 HOURS [...] 08/26/22 16:25:00 EDT, Route to Pharmacy Electronically, [facility]/pharmacy #[id number], Partial fill upon patient request if the prescription is for a schedule... Start Date: 08/26/22 Stop Date: 02/22/23 Status: Ordered Symbicort 160mcg/4.5mcg Inhaler 2, puffs, Inhalation, 2 times a day, no substitutions, # 1 each, Refills 1, Tot. Refills 1, Maintenance, 09/09/22 9:57:00 EDT, Aerosol, Route to Pharmacy Electronically, [id number], [facility]/pharmacy #0373, 160.02, cm, 08/26/22 15... Start Date: [...] Team Personnel Name: Vicky Costa NP Position: [facility] Associate Professional Member Role: Primary Care Nurse Address: Address: [address] [place] [address]- Name: Parvin Salomon MD Position: [facility] BATCH AND FURNACE MANAGER MD Member Role: Lifetime BATCH AND FURNACE MANAGER Physician Address: Address: [address] [place] [address] [facility], [place] [address]- Name: Alysha Naranjo NP Position: [facility] PCO Associate Professional Member Role: PCP Address: Address: [address] [place] [address] Gastroenter[place], [place] [address] Care Team Related Persons Name: NEL GARCIA Address: home [address] [facility] [place] [place] [address] Name: SUNNY BUTT Address: home [address] [place] [address] Name: MEGGAN MCKEON Address: home [address] [place] [address] Name: CHELA SHAHID Address: home [address] [facility] [place] [address]
--- OUTSIDE RECORDS SUMMARY | 2024-04-22 09:22 | XMS_ITS | Continuity of Care Document ---
Author Organization [facility] Address [address] [place] [address]- Care Team Providers Care Associate Music Professor Name Role Phone Todd Quiroga DO Primary Care Physician Encounter [facility] Date(s): 11/21/23 - 12/21/23 [facility] [address] [place] [address]- Allergies, Adverse Reactions, Alerts Substance Reaction Severity Status amoxicillin Active Cats Active Dust Active Grass Active Latex hives/rash Active Other Environmental Allergy Maple, [place], [place], Pollen Active Immunizations Given and Recorded Vaccine Date Status Refusal Reason SARS-CoV-2(COVID-19)mRNA-LNP vac([id number]) 10/09/23 Recorded tetanus/diphtheria/pertussis, acel(Tdap) 07/04/23 Recorded tetanus/diphtheria/pertussis, [...] (DT) 11/14/04 Given 1Admin Note: at work [employer] [employer] 2Admin Note: VIS GIVEN FLULAVAL 3Result Comment: 2nd one 4Admin Note: GIVEN BY 5Admin Note: [facility] Medications Albuterol (Eqv-ProAir HFA) 90 mcg/inh inhalation [...] Refills, Soft Stop, 11/21/23 14:31:00 EST, Tablet, [id number], Partial fill upon [...] Refills, Soft Stop, 12/16/23 9:57:00 EST, Tablet, [id number], Partial fill upon patient request if the prescription is for a... Start Date: 12/16/23 Status: Ordered Doterra adapt (herbal) Doterra adapt (herbal), Refills 0, Maintenance, 03/10/21 8:30:00 EDT, Supply Start Date: 03/10/21 Status: Ordered doxycycline hyclate 100 mg oral tablet 1 tablet = 100 mg, By Mouth, Every 12 hours, for 10 days, # 20 tablet, 0 Refills, Acute 12/26/23 9:56:00 EST, 12/16/23 9:56:00 EST, Tablet, [id number], Partial fill upon patient request if the prescription is for a schedule II opioid drug., 16... Start Date: 12/16/23 Stop Date: 12/26/23 Status: Ordered Flonase Daily, 0 Refills, Maintenance, [...] Gm, 3 Refills, Maintenance, 07/28/23 12:24:00 EDT, [facility]/pharmacy #[id number], Partial fill upon patient request if the prescription is for a schedule II opioid drug., 2 puffs Inhalat... Start Date: 07/28/23 Status: Ordered Singulair 10 mg oral tablet 10 mg, 1, tablet, By Mouth, Daily before dinner, # 30 tablet, Refills 5, Tot. Refills 5, Maintenance, 08/26/22 16:25:00 EDT, Route to Pharmacy Electronically, [facility]/pharmacy #[id number], Partial fill upon patient request if [...] Personnel Name: Igor NOGUEIRA, Vicky Murrieta Position: [facility] Associate Professional Member Role: Primary Care Nurse Address: Address: [address] [place] [address]- Name: Parvin Salomon MD Position: [facility] HANDKERCHIEF MAKER MD Member Role: Lifetime HANDKERCHIEF MAKER Physician Address: Address: [address] [place] [address] [address] [place] [address] [address]- [place] Name: Todd Quiroga DO Position: [facility] Physician - Primary Care Member Role: PCP Address: Address: [address] [place] [address]- [place] Care Team Related Persons Name: NEL GARCIA Address: home [address] [facility] [place] [address] Name: SUNNY BUTT Address: home [address] [place] [address] Name: MEGGAN MCKEON Address: home [address] [place] [address] Name: CHELA SHAHID Address: home [address] [place] [address]
--- OUTSIDE RECORDS SUMMARY | 2024-04-22 09:22 | XMS_ITS | Continuity of Care Document ---
Author Organization [facility] Devyn Delta lt Address [address] [place] [address]- Care Team Providers Care Supervisor Mapping Name Role Phone Harish Espinoza MD Primary Care Physician Encounter [facility] Date(s): 05/13/21 - 06/12/21 [facility] Adult [address] [place] [address]- Allergies, Adverse Reactions, Alerts Substance Reaction Severity Status Cats Active Dust Active Grass Active Latex hives/rash Active Other Environmental Allergy Maple, [place], [place], Pollen Active Immunizations Given and Recorded Vaccine [...] Comment: 2nd one 2Admin Note: at work [employer] [facility] 3Admin Note: VIS GIVEN FLULAVAL 4Admin Note: GIVEN BY DG 5Admin Note: [employer] Medications albuterol 0.083% inhalation solution 3 mL = 2.5 mg, Inhalation, Every 6 hours, PRN for wheezing/shortness of breath, # 60 each, 2 Refills, Maintenance, 10/28/20 9:59:00 EST, Solution, [facility]/pharmacy #[id number], Partial fill upon patient request if the prescription is for a schedule II opioid drMarissa. Start Date: 10/28/20 Status: Ordered Diflucan 150 mg oral tablet See Instructions, 1 tablet By Mouth Once, # 2 tablet, 0 Refills, Soft Stop, 05/13/21 15:32:00 EDT, Tablet, [facility]/pharmacy #2071, take 1 tablet by mouth, if [...] 15:32:23 EST Start Date: 11/20/18 Status: Ordered Macrobid macrocrystals-monohydrate 100 mg oral capsule 1 capsule = 100 mg, By Mouth, 2 times a day, for 10 days, # 20 capsule, 0 Refills, Acute 06/20/21 16:18:00 EDT, 06/10/21 16:18:00 EDT, Capsule, [facility]/pharmacy #2071, Partial fill upon patient request if the prescription is for a schedule II opioid drug.... Start Date: 06/10/21 Stop Date: 06/20/21 Status: Ordered Multivitamin By Mouth, Daily, 0 [...]
--- OUTSIDE RECORDS SUMMARY | 2024-04-22 09:22 | XMS_ITS | Continuity of Care Document ---
Author Organization [facility] Address [address] [place] [address]- Care Team Providers Care Heeler Name Role Phone Jose A NOGUEIRA, Alysha Hdez Primary Care Physician [phone] Encounter [place] Date(s): 01/11/22 - 02/10/22 [facility] [address] [place] [address]- Attending Physician: Anthony Doty Admitting Physician: AdmtrAnthony Referring Physician: Admtr ArJudy Allergies, Adverse Reactions, Alerts Substance Reaction Severity Status Cats Active Dust Active Grass Active Latex hives/rash Active Other Environmental Allergy Maple, [place], [place], Pollen Active Immunizations Given and Recorded Vaccine [...] (DT) 11/14/04 Given 1Admin Note: at work [place] [employer] [facility] 2Admin Note: VIS GIVEN FLULAVAL 3Result Comment: 2nd one 4Admin Note: GIVEN BY DG 5Admin Note: [facility] Medications albuterol 0.083% inhalation solution 3 mL [...] Refills, Soft Stop, 05/13/21 15:32:00 EDT, Tablet, [facility]/pharmacy #[id number], take 1 tablet by mouth, if symptoms [...]
--- OUTSIDE RECORDS SUMMARY | 2024-04-22 09:22 | XMS_ITS | Continuity of Care Document ---
Author Organization [facility] Address [address] [place] [address]- Care Team Providers Care Credit Reporter Name Role Phone Alysha Naranjo NP Primary Care Physician [phone] [place] [facility] [place] Date(s): 10/08/22 - 11/07/22 [facility] [address] [place] [address]- Allergies, Adverse Reactions, Alerts Substance Reaction Severity Status amoxicillin Active Cats Active Dust Active Grass Active Latex hives/rash Active Other Environmental Allergy Maple, [place], [place], Pollen Active Immunizations Given and Recorded [...] (DT) 11/14/04 Given 1Admin Note: at work [place] [employer] 2Admin Note: VIS GIVEN FLULAVAL 3Result Comment: 2nd one 4Admin Note: GIVEN BY DG 5Admin Note: [place] [facility] Medications Albuterol (Eqv-ProAir HFA) 90 mcg/inh inhalation aerosol See Instructions, INHALE 2 PUFFS EVERY 4 HOURS NEEDED FOR WHEEZING, # 25.5 Unknown, 0 Refills, [facility], 90, INHALE 2 PUFFS EVERY 4 HOURS [...] 1 Refills, Maintenance, 01/11/22 13:40:00 EST, Solution, [facility]/pharmacy #0373, Partial fill upon patient request [...] 08/26/22 16:25:00 EDT, Route to Pharmacy Electronically, [facility]/pharmacy #[id number], Partial fill upon patient request if the prescription is for a schedule... Start Date: 08/26/22 Stop Date: 02/22/23 Status: Ordered Symbicort 160mcg/4.5mcg Inhaler 2, puffs, Inhalation, 2 times a day, no substitutions, # 1 each, Refills 1, Tot. Refills 1, Maintenance, 09/09/22 9:57:00 EDT, Aerosol, Route to Pharmacy Electronically, [id number], [facility]/pharmacy #0373, 160.02, cm, 08/26/22 15... Start [...] Team Personnel Name: Vicky Costa NP Position: [facility] Associate Professional Member Role: Primary Care Nurse Address: Address: [address] [place] [address]- Name: Parvin Salomon MD Position: [facility] PILOT SAFETY INSPECTOR MD Member Role: Lifetime PILOT SAFETY INSPECTOR Physician Address: Address: [address] [place] [address] [facility], [place] [address]- Name: Alysha Naranjo NP Position: [facility] PCO Associate Professional Member Role: PCP Address: Address: [address] [place] [address] [place]astro[place], [place] [address] Care Team Related Persons Name: NEL GARCIA Address: home [address] [facility] [place] [address] Name: SUNNY BUTT Address: home [address] [place] [address] Name: MEGGAN MCKEON Address: home [address] [place] [address] Name: CHELA SHAHID Address: home [address] [place] [address]
--- OUTSIDE RECORDS SUMMARY | 2024-04-22 09:22 | XMS_ITS | Continuity of Care Document ---
Author Organization [facility] Address [address] [place] [address]- Care Team Providers Care Steamer Blocker Name Role Phone Junaid Todd PRYOR Primary Care Physician [phone] Encounter [facility] Date(s): 11/17/23 - 12/17/23 [facility] [address] [place] [address]- Allergies, Adverse Reactions, Alerts Substance Reaction Severity Status amoxicillin Active Cats Active Dust Active Grass Active Latex hives/rash Active Other Environmental Allergy Maple, [place], [place], Pollen Active Immunizations Given and Recorded Vaccine Date Status Refusal Reason SARS-CoV-2(COVID-19)mRNA-LNP vac([id number]) 10/09/23 Recorded tetanus/diphtheria/pertussis, acel(Tdap) 07/04/23 Recorded tetanus/diphtheria/pertussis, [...] (DT) 11/14/04 Given 1Admin Note: at work [employer] 2Admin Note: VIS GIVEN FLULAVAL 3Result Comment: 2nd one 4Admin Note: GIVEN BY 5Admin Note: [facility] Medications Albuterol (Eqv-ProAir HFA) 90 mcg/inh [...] Gm, 3 Refills, Maintenance, 07/28/23 12:24:00 EDT, [facility]/pharmacy #[id number], Partial fill upon patient request if the prescription is for a schedule II opioid drug., 2 puffs Inhalat... Start Date: 07/28/23 Status: Ordered Singulair 10 mg oral tablet 10 mg, 1, tablet, By Mouth, Daily before dinner, # 30 tablet, Refills 5, Tot. Refills 5, Maintenance, 08/26/22 16:25:00 EDT, Route to Pharmacy Electronically, [facility]/pharmacy #[id number], Partial fill upon patient request if [...] Personnel Name: Igor NOGUEIRA, Vicky Murrieta Position: [facility] Associate Professional Member Role: Primary Care Nurse Address: Address: [address] [place] [address]- Name: Parvin Salomon MD Position: [facility] FACIAL OPERATOR MD Member Role: Lifetime FACIAL OPERATOR Physician Address: Address: [address] [place] [address] [address] [place] [address] [address]- [place] Name: Todd Quiroga DO Position: [facility] Physician - Primary Care Member Role: PCP Address: Address: [address] [place] [address]- [place] Care Team Related Persons Name: NEL GARCIA Address: home [address] [facility] [place] [address] Name: SUNNY BUTT Address: home [address] [place] [address] Name: MEGGAN MCKEON Address: home [address] [place] [address] Name: CHELA SHAHID Address: home [address] [place] [address]
--- OUTSIDE RECORDS SUMMARY | 2024-04-22 09:22 | XMS_ITS | Continuity of Care Document ---
Author Organization [facility] Address [address] [place] [address]- Care Team Providers Care Production Stage Manager Name Role Phone Jose A NOGUEIRA, Alysha Hdez Primary Care Physician [place] [facility] [place]11[place] - 01/18/[place] [facility] [address] [place] [address]- Encounter Diagnosis URI (upper respiratory infection)(Discharge Diagnosis) - 01/11/22 Asthma flare(Discharge Diagnosis) - 01/11/22 Attending Physician: Marie Gasca NP Allergies, Adverse Reactions, Alerts Substance Reaction Severity Status Cats Active Dust Active Grass Active Latex hives/rash Active Other Environmental Allergy Maple, [place], [place], Pollen Active Immunizations Given and Recorded Vaccine [...] Comment: 2nd one 2Admin Note: at work [employer] 3Admin Note: VIS GIVEN FLULAVAL 4Admin Note: GIVEN BY DG 5Admin Note: [facility] Medications albuterol 0.083% inhalation solution 3 mL = 2.5 mg, Inhalation, Every 6 hours, PRN for wheezing/shortness of breath, # 60 each, 2 Refills, Maintenance, 10/28/20 9:59:00 EST, Solution, [facility]/pharmacy #[id number], Partial fill upon patient [...] Refills, Soft Stop, 05/13/21 15:32:00 EDT, Tablet, [facility]/pharmacy #[id number], take 1 tablet by mouth, if symptoms [...] Diagnosis Diagnosis Type Effective Dates Health Status Clinical Service Informant URI (upper respiratory infection) Discharge Diagnosis 01/11/22 Asthma flare Discharge Diagnosis 01/11/22 Vital Signs Most recent to oldest [Reference Range]: 1 Height 160.02 cm (01/11/22 1:08 PM) Social History Social History Type Response Smoking Status Former smoker entered on: 05/23/15 Sex
--- OUTSIDE RECORDS SUMMARY | 2024-04-22 09:22 | XMS_ITS | Continuity of Care Document ---
Author Organization [facility] Address [address] [place] [address]- Care Team Providers Care Middleware Architect Name Role Phone Todd Quiroga DO Primary Care Physician [phone] [place] [facility] [place]23 [place] 03/[place]/23 [facility] [address] [place] [address]- Allergies, Adverse Reactions, Alerts Substance Reaction Severity Status amoxicillin Active Cats Active Grass Active Other Environmental Allergy Maple, [place], [place], Pollen Active Dust Active Latex hives/rash Active Immunizations Given and [...] (DT) 11/14/04 Given 1Admin Note: at work [employer] 2Admin Note: VIS GIVEN FLULAVAL 3Result Comment: 2nd one 4Admin Note: GIVEN BY DG 5Admin Note: [employer] [facility] Medications Albuterol (Eqv-ProAir HFA) 90 mcg/inh inhalation aerosol See Instructions, INHALE 2 PUFFS EVERY 4 HOURS NEEDED FOR WHEEZING, # 25.5 Unknown, 0 Refills, [id number], 90, INHALE 2 PUFFS EVERY 4 HOURS [...] 1 Refills, Maintenance, 01/11/22 13:40:00 EST, Solution, [facility]/pharmacy #[id number], Partial fill upon patient [...] 0 Refills, Maintenance, 12/27/22 10:39:00 EST, Tablet, [facility]/pharmacy #[id number], Partial fill upon patient [...] 08/26/22 16:25:00 EDT, Route to Pharmacy Electronically, [facility]/pharmacy #[id number], Partial fill upon patient request if the prescription is for a schedule... Start Date: 08/26/22 Stop Date: 02/22/23 Status: Ordered Symbicort 160mcg/4.5mcg Inhaler 2, puffs, Inhalation, 2 times a day, no substitutions, # 1 each, Refills 1, Tot. Refills 1, Maintenance, 09/09/22 9:57:00 EDT, Aerosol, Route to Pharmacy Electronically, [id number], [facility]/pharmacy #[id number], 160.02, cm, 08/26/22 15... [...] Personnel Name: Igor NOGUEIRA, Vicky Murrieta Position: [facility] Associate Professional Member Role: Primary Care Nurse Address: Address: [address] [place] [address]- Name: Parvin Salomon MD Position: [facility] DIRECTOR CHINA MD Member Role: Lifetime DIRECTOR CHINA Physician Address: Address: [address] [place] [address] [address] [place] [address] [facility], [place] [address]- Name: Todd Quiroga DO Position: [facility] Primary Care Physician Member Role: PCP Address: Address: [address] [place] [address]- Care Team Related Persons Name: NEL GARCIA Address: home [address] [place] [address] Name: SUNNY BUTT Address: home [address] [place] [address] Name: MEGGAN MCKEON Address: [place] [address] [place] [address] Name: CHELA SHAHID Address: home [address] [facility] [place] [address]
--- OUTSIDE RECORDS SUMMARY | 2024-04-22 09:22 | XMS_ITS | Continuity of Care Document ---
Author Organization [facility] Address [address] [place] [address]- Care Team Providers Care Director Of Curriculum And Instruction Name Role Phone Harish Espinoza MD Primary Care Physician [facility]counter [facility] Date(s): 06/18/21 - 07/18/21 [facility] Adult [address] [place] [address]- Allergies, Adverse Reactions, Alerts Substance Reaction Severity Status Cats Active Dust Active Grass Active Latex hives/rash Active Other Environmental Allergy Maple, [place], [place], Pollen Active Immunizations Given and Recorded Vaccine [...] Comment: 2nd one 2Admin Note: at work [employer] 3Admin Note: VIS GIVEN FLULAVAL 4Admin Note: GIVEN BY DG 5Admin Note: [employer] Medications albuterol 0.083% inhalation solution 3 mL = 2.5 mg, Inhalation, Every 6 hours, PRN for wheezing/shortness of breath, # 60 each, 2 Refills, Maintenance, 12/15/20 9:59:00 EST, Solution, [facility]/pharmacy #[id number], Partial fill upon patient request if the prescription is for a schedule II opioid dr... Start Date: 10/28/20 Status: Ordered Diflucan 150 mg oral tablet 1 tablet = 150 mg, By Mouth, Once, # 1 tablet, 0 Refills, Soft Stop, 06/22/21 11:41:00 EDT, Tablet,[facility]/pharmacy #[id number], Partial fill upon patient request if the prescription is for a schedule II opioid drug., 160.02, cm, 05/04/21 8:34:00 EDT, Height,... Start Date: 06/22/21 Status: Ordered Diflucan 150 mg oral tablet See Instructions, 1 tablet By Mouth Once, # 2 tablet, 0 Refills, Soft Stop, 05/13/21 15:32:00 EDT, Tablet, [facility]/pharmacy #[id number], take 1 tablet by mouth, if symptoms [...]
--- OUTSIDE RECORDS SUMMARY | 2024-04-22 09:22 | XMS_ITS | Continuity of Care Document ---
Author Organization [facility] Address [address] [place] [address]- Care Team Providers Care Fur Repairer Name Role Phone Jose A NOGUEIRA, Alysha Lyons Primary Care Physician Encounter [facility] [place] Date(s): 07/22/22 - 08/21/22 [facility] [address] [place] [address]- Allergies, Adverse Reactions, Alerts Substance Reaction Severity Status amoxicillin Active Cats Active Dust Active Latex hives/rash Active Other Environmental Allergy Maple, [place], [place], Pollen Active Grass Active Immunizations Given and [...] (DT) 11/14/04 Given 1Admin Note: at work [employer] 2Admin Note: VIS GIVEN FLULAVAL 3Result Comment: 2nd one 4Admin Note: GIVEN BY 5Admin Note: [employer] [facility] Medications Albuterol (Eqv-ProAir HFA) 90 mcg/inh inhalation aerosol See Instructions, INHALE 2 PUFFS EVERY 4 HOURS NEEDED FOR WHEEZING, # 25.5 Unknown, 0 Refills, [id number], 90, INHALE 2 PUFFS EVERY 4 HOURS NEEDED FOR WHEEZING, 160.02, cm, 05/06/22 15:43:00 EDT, Height, 82.6, kg, 08/06/21 16:12:00 EDT, Dry... Start Date: 06/23/22 Status: Ordered albuterol 0.083% inhalation solution 3 mL = 2.5 mg, Inhalation, Every 6 hours, PRN for wheezing/shortness of breath, # 60 each, 2 Refills, Maintenance, 10/28/20 9:59:00 EST, Solution, [facility]/pharmacy #[id number], Partial fill upon patient request if the prescription is for a schedule II opioid dr... Start Date: 10/28/20 Status: Ordered albuterol-ipratropium 3 mg-0.5 mg/3 ml inhalation solution 3 mL, Inhalation, 4 times a day, # 90 mL, 1 Refills, Maintenance, 01/11/22 13:40:00 EST, Solution, [facility]/pharmacy #[id number], Partial fill upon patient request if the prescription is for a schedule II opioid drug., 3 mL Inhalation 4 times a day, 160.02, cm,... Start Date: 01/11/22 Status: Ordered Azithromycin 5 Day Dose Pack 250 mg oral tablet 1 pack/packet, By Mouth, Once, # 6 tablet, 0 Refills, Soft Stop, 02/15/22 13:05:00 EDT, Tablet, [facility]/pharmacy #[id number], Partial fill upon patient request if the prescription is for a schedule II opioid drug., 160.02, cm, 01/11/22 13:08:00 EST, Height, 82.... Start Date: 02/15/22 Status: Ordered Diflucan 150 mg oral tablet 1 tablet = 150 mg, By Mouth, Once, # 1 tablet, 0 Refills, Soft Stop, 06/22/21 11:41:00 EDT, Tablet,[facility]/pharmacy #[id number], Partial fill upon patient request if the prescription is for a schedule II opioid drug., 160.02, cm, 05/04/21 8:34:00 EDT, Height,... Start Date: 06/22/21 Status: Ordered Diflucan 150 mg oral tablet 1 tablet = 150 mg, By Mouth, Once, # 1 tablet, 0 Refills, Soft Stop, 02/13/22 15:31:00 EDT, Tablet,[facility]/pharmacy #[id number], Partial fill upon patient request if the prescription is for a schedule II opioid drug., 160.02, cm, 01/11/22 13:08:00 EST, Height,... Start Date: 02/13/22 Status: Ordered Diflucan 150 mg oral tablet See Instructions, 1 tablet By Mouth Once, # 2 tablet, 0 Refills, Soft Stop, 05/13/21 15:32:00 EDT, Tablet, [facility]/pharmacy #[id number], take 1 tablet by mouth, if symptoms [...] Personnel Name: Alysha Naranjo NP Address: Address: [address] [place] [address] [place], [place] [address]
--- OUTSIDE RECORDS SUMMARY | 2024-04-22 09:22 | XMS_ITS | Continuity of Care Document ---
Author Organization [facility] Sriram [facility]oy n[facility] Address [address], [address] [place] [address]- Care Team Providers Care Hog Pusher Name Role Phone Olga CANDELARIO, Harish Rivera Primary Care Physician [phone] Encounter [facility] [place] Date(s): 08/06/21 - 09/05/21 [facility] Sriram Tolentinos [facility] [address] [place] [address]- Attending Physician: AdmAnthony ramirez Admitting Physician: AdmtrAnthony Referring Physician: Admtr, Ar8 Allergies, Adverse Reactions, Alerts Substance Reaction Severity Status Cats Active Dust Active Grass Active Other Environmental Allergy Maple, [place], [place], Pollen Active Latex hives/rash Active Immunizations Given and [...] Comment: 2nd one 2Admin Note: at work [employer] [facility] 3Admin Note: VIS GIVEN FLULAVAL 4Admin Note: GIVEN BY DG 5Admin Note: [employer] Medications albuterol 0.083% inhalation solution 3 mL = 2.5 mg, Inhalation, Every 6 hours, PRN for wheezing/shortness of breath, # 60 each, 2 Refills, Maintenance, 10/28/20 9:59:00 EST, Solution, [facility]/pharmacy #[id number], Partial fill upon patient request if the prescription is for a schedule II opioid dr... Start Date: 10/28/20 Status: Ordered Diflucan 150 mg oral tablet 1 tablet = 150 mg, By Mouth, Once, # 1 tablet, 0 Refills, Soft Stop, 06/22/21 11:41:00 EDT, Tablet,[facility]/pharmacy #[id number], Partial fill upon patient request if the prescription is for a schedule II opioid drug., 160.02, cm, 05/04/21 8:34:00 EDT, Height,... Start Date: 06/22/21 Status: Ordered Diflucan 150 mg oral tablet See Instructions, 1 tablet By Mouth Once, # 2 tablet, 0 Refills, Soft Stop, 05/13/21 15:32:00 EDT, Tablet, [facility]/pharmacy #[id number], take 1 tablet by mouth, if symptoms [...]
--- OUTSIDE RECORDS SUMMARY | 2024-04-22 09:22 | XMS_ITS | Continuity of Care Document ---
Author Organization [facility] Address [address] [place] [address]- Care Team Providers Care Construction Equipment Mechanic Name Role Phone Jose A NOGUEIRA, Alysha Hdez Primary Care Physician Encounter [facility] Date(s): 01/11/22 - 02/10/22 [facility] Adult [address] [place] [address]- Attending Physician: Farhana CANDELARIO, Pascual Duffy Allergies, Adverse Reactions, Alerts Substance Reaction Severity Status Cats Active Dust Active Grass Active Latex hives/rash Active Other Environmental Allergy Maple, [place], [place], Pollen Active Immunizations Given and Recorded Vaccine Date Status Refusal Reason influenza virus vaccine, inactivated 08/27/21 Ujan rded influenza virus vaccine, inactivated 08/17/20 Juan [...] (DT) 11/14/04 Given 1Admin Note: at work [employer] 2Admin Note: VIS GIVEN FLULAVAL 3Result Comment: 2nd one 4Admin Note: GIVEN BY 5Admin Note: [employer] Medications albuterol 0.083% inhalation solution 3 mL = 2.5 mg, Inhalation, Every 6 hours, PRN for wheezing/shortness of breath, # 60 each, 2 Refills, Maintenance, 10/28/20 9:59:00 EST, Solution, [facility]/pharmacy #[id number], Partial fill upon patient request if the prescription is for a schedule II opioid dr... Start Date: 10/28/20 Status: Ordered albuterol-ipratropium 3 mg-0.5 mg/3 ml inhalation solution 3 mL, Inhalation, 4 times a day, # 90 mL, 1 Refills, Maintenance, 01/11/22 13:40:00 EST, Solution, [facility]/pharmacy #[id number], Partial fill upon patient request if the prescription is for a schedule II opioid drug., 3 mL Inhalation 4 times a day, 160.02, cm,... Start Date: 01/11/22 Status: Ordered Diflucan 150 mg oral tablet 1 tablet = 150 mg, By Mouth, Once, # 1 tablet, 0 Refills, Soft Stop, 06/22/21 11:41:00 EDT, Tablet,[facility]/pharmacy #[id number], Partial fill upon patient request if the prescription is for a schedule II opioid drug., 160.02, cm, 05/04/21 8:34:00 EDT, Height,... Start Date: 06/22/21 Status: Ordered Diflucan 150 mg oral tablet See Instructions, 1 tablet By Mouth Once, # 2 tablet, 0 Refills, Soft Stop, 05/13/21 15:32:00 EDT, Tablet, [facility]/pharmacy #[id number], take 1 tablet by mouth, if symptoms [...]
--- OUTSIDE RECORDS SUMMARY | 2024-04-22 09:22 | XMS_ITS | Continuity of Care Document ---
Author Organization [facility] Address [address] [place] [address]- Care Team Providers Care Multimedia Designer Name Role Phone Todd Quiroga DO Primary Care Physician En[place] [facility] [place] Date(s): 11/18/23 - 11/25/23 [facility] [address] [place] [address]- Encounter Diagnosis Viral URI with cough(Discharge Diagnosis) - 11/18/23 Acute pharyngitis(Discharge Diagnosis) - 11/18/23 Attending Physician: Angelica NOGUEIRA, Melva Hdez Allergies, Adverse Reactions, Alerts Substance Reaction Severity Status amoxicillin Active Cats Active Dust Active Grass Active Latex hives/rash Active Other Environmental Allergy Maple, [place], [place], Pollen Active Immunizations Given and Recorded Vaccine Date Status Refusal Reason tetanus/diphtheria/pertussis, acel(Tdap) 07/04/23 Recorded tetanus/diphtheria/pertussis, acel(Tdap) 05/23/15 [...] (DT) 11/14/04 Given 1Admin Note: at work [employer] [facility] 2Admin Note: VIS GIVEN FLULAVAL 3Result Comment: 2nd one 4Admin Note: GIVEN BY DG 5Admin Note: [employer] [facility] Medications Albuterol (Eqv-ProAir HFA) 90 mcg/inh [...] 0 Refills, Maintenance, 12/27/22 10:39:00 EST, Tablet, [facility]/pharmacy #[id number], Partial fill upon patient request if the prescription is for a schedule... Start Date: 12/27/22 Status: Ordered Azithromycin 5 Day Dose Pack 250 mg oral tablet 1 pack/packet, By Mouth, Once, # 6 tablet, 0 Refills, Soft Stop, 11/21/23 14:31:00 EST, Tablet, [facility]/pharmacy #[id number], Partial fill upon patient request if the prescription is for a schedule II opioid drug., 160.02, cm, 11/18/23 12:39:00 EST, Height Start Date: 11/21/23 Status: Ordered Doterra adapt (herbal) Doterra adapt [...] Gm, 3 Refills, Maintenance, 07/28/23 12:24:00 EDT, [facility]/pharmacy #[id number], Partial fill upon patient request if the prescription is for a schedule II opioid drug., 2 puffs Inhalat... Start Date: 07/28/23 Status: Ordered Singulair 10 mg oral tablet 10 mg, 1, tablet, By Mouth, Daily before dinner, # 30 tablet, Refills 5, Tot. Refills 5, Maintenance, 08/26/22 16:25:00 EDT, Route to Pharmacy Electronically, [facility]/pharmacy #[id number], Partial fill upon [...] class I Confirmed Active Psoriasis Confirmed Active Diagnosis Diagnosis Type Effective Dates Health Status Clinical Service Informant Viral URI with cough Discharge Diagnosis 11/18/23 Acute pharyngitis Discharge Diagnosis 11/18/23 Vital Signs Most recent to oldest [Reference Range]: 1 Height 160.02 cm (11/18/23 12:39 PM) Weight 84.5 kg (11/18/23 12:39 PM) Oxygen Saturation [94-100 %] 97 % (11/18/23 12:39 PM) Pulse Rate [55-90 bpm] 78 bpm (11/18/23 12:39 PM) Body Mass Index [18.5-24.99 kg/m2] 33 kg /m2 *>HHI* (11/18/23 12:39 PM) Blood Pressure [90-138/55-84 mm Hg] 130/ 87mm Hg (11/18/23 12:39 PM) Temperature [96.8-100.4 DegF] 98.3 DegF (11/18/23 12:39 PM) Blood pressure sites Arm, right (11/18/23 12:39 PM) Temperature Route Oral (11/18/23 12:39 PM) Weight Obtained Via Standing scale (11/18/23 12:39 PM) Social History Social History Type Response Smoking Status Former smoker entered on: 05/23/15 Sex Note * Bianka Kenny: PERFORM, SIGN, VERIFY Event Display: Patient Education/Instruction Authored Date: [id number] [facility] *[facility] Clinical Summary Name GARY BUTT Age 48 Years 1975 PCP Todd Quiroga DO PCP Visit Date 11/18/2023 12:21:00 Additional Instructions: Scheduled Appointments?? Future Appointments ?No Future Appointments Scheduled Follow-Up Instructions ?? Diagnosis Acute upper respiratory infection, unspecified; Acute pharyngitis, unspecified Medications: Please continue your medications until treatment is completed or stopped by your provider. Discuss any questions related to medications with your provider. Medications to Continue with No Changes These [...] times a day. Refills: 1. Next Dose: Azithromycin (Azithromycin 5 Day Dose Pack 250 mg oral tablet) Take 2 tablets by mouth on the firstday, then 1 tablet by mouth x4 days. Refills: 0. Next Dose: Beclomethasone (Qvar Redihaler 80 mcg/inh inhalation aerosol) 2 puff(s) Inhalation twice a day. rinse mouth and throat after use. Refills: 3. Next Dose: BuPROpion (Wellbutrin SR 150 mg/12 hours oral tablet, extended release) 1 tab(s) Oral twice a day. Next Dose: Cetirizine (ZyrTEC 10 mg oral tablet) 1 tab(s) Oral Daily in the morning. Next Dose: Durable Medical Equipment (Nebulizer/Compressor) use as directed. Refills: 0. Next Dose: Escitalopram (Lexapro 10 mg oral tablet) 2 tab(s) Oral Daily at Bedtime. Next Dose: Fluticasone Nasal (Flonase) Daily. Next Dose: HydrOXYzine (hydrOXYzine pamoate 25 mg oral capsule) TAKE 1 CAPSULE BY MOUTH TWICE A DAY NEEDED. Next Dose: Miscellaneous Rx (Doterra adapt (herbal)) Next Dose: Montelukast (Singulair 10 mg oral tablet) 1 tab(s) Oral Daily before dinner for 30 Days. Refills: 5. Next Dose: Multivitamin Oral Daily. Next Dose: Prazosin Oral Daily at Bedtime. Next Dose: Prazosin (prazosin 1 mg oral capsule) 1 capsule Oral Daily at Bedtime. Next Dose: Allergy Info:?? Other Environmental Allergy; Latex; Grass; Dust; Cats; amoxicillin Medications Given This Visit Future Orders ?Throat Culture Grp A Strep? Order Date:11/18/23?- Complete on or after?11/18/23 ?COVID-19, RSV, and Flu A/B, Rapid PCR? Order Date:11/18/23?- Complete on or after?11/18/23 Vital Signs Height 160.02 cm Weight 84.5 kg BMI 33 kg/m2 Blood Pressure 130 mm Hg/87 mm Hg Temperature 98.3 DegF Pulse Rate 78 bpm Respiratory Rate 02 Sat Mode of Delivery 97 %/ You can now view a summary of your hospital visit from the comfort of your home through a free online portal called [employer]. [employer] is a website that allows you to securely view your medical information including discharge summary, medications and follow-up visits. ??You can alsosend a secure electronic message to your doctor???s office to request appointments, renew medications or just ask a question. You can enroll at [email or web address] or register during your next office [...] primary care provider, you may find a [facility] provider by calling [facility] Mobile System 7 Link at [phone]. [facility], in keeping with [facility] guidance, no longer requires face masks for staff, patientsor visitors in most situations. Similar to time spent indoors at other locations, there is the chance that you were exposed to respiratory viruses during your time with us (such as flu or COVID-19).? If you develop symptoms concerning for a viral respiratory infection, please seek testing (and treatment if indicated) from your medical provider or home test kit. For information about the plan of care [...] Personnel Name: Igor NOGUEIRA, Vicky Murrieta Position: [facility] Associate Professional Member Role: Primary Care Nurse Address: Address: [address] [place] [address]- [place] Name: Parvin Salomon MD Position: [facility] BENZENE WASHER MD Member Role: Lifetime BENZENE WASHER Physician Address: Address: [address] [place] [address], [place] [address]- [place] Name: Todd Quiroga DO Position: [facility] Physician - Primary Care Member Role: PCP Address: Address: [address] [place] [address]- Care Team Related Persons Name: NEL GARCIA Address: home [address] [facility] [place] [address] Name: SUNNY BUTT Address: home [address] [place] [address] Name: MEGGAN MCKEON Address: [address] [place] [address] Name: CHELA SHAHID Address: home [address] [place] [address]
--- OUTSIDE RECORDS SUMMARY | 2024-04-22 09:22 | XMS_ITS | Continuity of Care Document ---
Author Organization [facility] Address [address] [place] [address]- Care Team Providers Care Wildlife Control Operator Name Role Phone Todd Quiroga DO Primary Care Physician [place] [facility] [place](s): 12/14/23 - 01/13/24 [facility] [address] [place] [address]- Attending Physician: Melva Dominguez NP Allergies, Adverse Reactions, Alerts Substance Reaction Severity Status amoxicillin Active Cats Active Dust Active Latex hives/rash Active Other Environmental Allergy Maple, [place], [place], Pollen Active Grass Active Immunizations Given and Recorded Vaccine Date Status Refusal Reason SARS-CoV-2(COVID-19)mRNA-LNP vac([id number]) 10/09/23 Recorded tetanus/diphtheria/pertussis, acel(Tdap) 07/04/23 Recorded tetanus/diphtheria/pertussis, [...] (DT) 11/14/04 Given 1Admin Note: at work [employer] 2Admin Note: VIS GIVEN FLULAVAL 3Result Comment: 2nd one 4Admin Note: GIVEN BY 5Admin Note: [facility] Medications Albuterol (Eqv-ProAir HFA) 90 [...] Refills, Soft Stop, 11/21/23 14:31:00 EST, Tablet, [facility]/pharmacy #[id number], Partial [...] Refills, Soft Stop, 12/16/23 9:57:00 EST, Tablet, [facility]/pharmacy #[id number], Partial [...] Gm, 3 Refills, Maintenance, 07/28/23 12:24:00 EDT, [facility]/pharmacy #[id number], Partial fill upon patient request if the prescription is for a schedule II opioid drug., 2 puffs Inhalat... Start Date: 07/28/23 Status: Ordered Singulair 10 mg oral tablet 10 mg, 1, tablet, By Mouth, Daily before dinner, # 30 tablet, Refills 5, Tot. Refills 5, Maintenance, 08/26/22 16:25:00 EDT, Route to Pharmacy Electronically, [facility]/pharmacy #[id number], Partial [...] Personnel Name: Igor NOGUEIRA, Vicky Murrieta Position: [facility] Associate Professional Member Role: Primary Care Nurse Address: Address: [address] [place] [address]- Name: Parvin Salomon MD Position: [facility] APPLICATION SUPPORT ADMINISTRATOR MD Member Role: Lifetime APPLICATION SUPPORT ADMINISTRATOR Physician Address: Address: [address] [place] [address] [facility], [place] [address]- Name: Todd Quiroga DO Position: [facility] Physician - Primary Care Member Role: PCP Address: Address: [address] [place] [address]- Care Team Related Persons Name: NEL GARCIA Address: home [address] [facility] [place] [address] Name: SUNNY BUTT Address: [address] [place] [address] Name: MEGGAN MCKEON Address: home [address] [place] [address] Name: CHELA SHAHID Address: home [address] [place] [address]
--- OUTSIDE RECORDS SUMMARY | 2024-04-22 09:22 | XMS_ITS | Continuity of Care Document ---
Author Organization [facility] Address [address] [place] [address]- Care Team Providers Care Disease And Insect Control Boss Name Role Phone Jose A NOGUEIRA, Alysha Hdez Primary Care Physician [phone] Encounter [facility] [place] Date(s): 07/07/22 - 08/06/22 [facility] [address] [place] [address]- Allergies, Adverse Reactions, Alerts Substance Reaction Severity Status amoxicillin Active Cats Active Grass Active Other Environmental Allergy Maple, [place], [place], Pollen Active Dust Active Latex hives/rash Active [...] (DT) 11/14/04 Given 1Admin Note: at work [employer] 2Admin Note: VIS GIVEN FLULAVAL 3Result Comment: 2nd one 4Admin Note: GIVEN BY DG 5Admin Note: [facility] Medications Albuterol (Eqv-ProAir HFA) 90 mcg/inh inhalation aerosol See Instructions, INHALE 2 PUFFS EVERY 4 HOURS NEEDED FOR WHEEZING, # 25.5 Unknown, 0 Refills, [facility], 90, INHALE 2 PUFFS EVERY 4 HOURS [...] 1 Refills, Maintenance, 01/11/22 13:40:00 EST, Solution, [facility]/pharmacy #[id number], Partial fill upon patient request if the prescription is for a schedule II opioid drug., 3 mL Inhalation 4 times a day, 160.02, cm,... Start Date: 01/11/22 Status: Ordered Azithromycin 5 Day Dose Pack 250 mg oral tablet 1 pack/packet, By Mouth, Once, # 6 tablet, 0 Refills, Soft Stop, 02/15/22 13:05:00 EDT, Tablet, [facility]/pharmacy #[id number], Partial fill upon patient request if the prescription is for a schedule II opioid drug., 160.02, cm, 01/11/22 13:08:00 EST, Height, 82.... Start Date: 02/15/22 Status: Ordered Diflucan 150 mg oral tablet 1 tablet = 150 mg, By Mouth, Once, # 1 tablet, 0 Refills, Soft Stop, 06/22/21 11:41:00 EDT, Tablet,[facility]/pharmacy #[id number], Partial fill upon patient request if the prescription is for a schedule II opioid drug., 160.02, cm, 05/04/21 8:34:00 EDT, Height,... Start Date: 06/22/21 Status: Ordered Diflucan 150 mg oral tablet 1 tablet = 150 mg, By Mouth, Once, # 1 tablet, 0 Refills, Soft Stop, 02/13/22 15:31:00 EDT, Tablet,[facility]/pharmacy #[id number], Partial fill upon patient request if the prescription is for a schedule II opioid drug., 160.02, cm, 01/11/22 13:08:00 EST, Height,... Start Date: 02/13/22 Status: Ordered Diflucan 150 mg oral tablet See Instructions, 1 tablet By Mouth Once, # 2 tablet, 0 Refills, Soft Stop, 05/13/21 15:32:00 EDT, Tablet, [facility]/pharmacy #[id number], take 1 tablet by mouth, if symptoms [...] Status Former smoker entered on: 05/23/15 Sex Care Team Personnel Name: Alysha Naranjo NP Address: [address] [place] [address]-
--- OUTSIDE RECORDS SUMMARY | 2024-04-22 09:22 | XMS_ITS | Continuity of Care Document ---
Author Organization [facility] Address [address], [address] [place] [address]- Care Team Providers Care Candy Wrapping Machine Operator Name Role Phone Olga CANDELARIO, Harish Rivera Primary Care Physician [place] [facility] [place] 05[place]05[place]21 - 06/04/21 [facility] Sriram Tolentinos [facility] [address] [place], [place] [address] Attending Physician: Admjames, Anthony Admitting Physician: Admtr, Ar8 Referring Physician: Admtr, Ar8 Allergies, Adverse Reactions, Alerts Substance Reaction Severity Status Cats Active Dust Active Grass Active Latex hives/rash Active Other Environmental Allergy Maple, [place], [place], Pollen Active Immunizations Given and Recorded Vaccine [...] Comment: 2nd one 2Admin Note: at work [employer] 3Admin Note: VIS GIVEN FLULAVAL 4Admin Note: GIVEN BY DG 5Admin Note: [employer] [facility] Medications albuterol 0.083% inhalation solution 3 mL = 2.5 mg, Inhalation, Every 6 hours, PRN for wheezing/shortness of breath, # 60 each, 2 Refills, Maintenance, 10/28/20 9:59:00 EST, Solution, [facility]/pharmacy #[id number], Partial fill upon patient request if the prescription is for a schedule II opioid . Start Date: 10/28/20 Status: Ordered Diflucan 150 mg oral tablet See Instructions, 1 tablet By Mouth Once, # 2 tablet, 0 Refills, Soft Stop, 05/13/21 15:32:00 EDT, Tablet, [facility]/pharmacy #[id number], take 1 tablet by mouth, if symptoms [...]
--- OUTSIDE RECORDS SUMMARY | 2024-04-22 09:22 | XMS_ITS | Continuity of Care Document ---
Author Organization [facility] Address [address] [place] [address]- Care Team Providers Care Scorekeeper Name Role Phone Alysha Naranjo NP Primary Care Physician [phone] [place] [facility] [place](s): 09/03/22 - 10/03/22 [facility] [address] [place] [address]- Allergies, Adverse Reactions, Alerts Substance Reaction Severity Status amoxicillin Active Cats Active Other Environmental Allergy Maple, [place], [place], Pollen Active Dust Active Grass Active Latex [...] (DT) 11/14/04 Given 1Admin Note: at work [employer] 2Admin Note: VIS GIVEN FLULAVAL 3Result Comment: 2nd one 4Admin Note: GIVEN BY DG 5Admin Note: [employer] [facility] Medications Albuterol (Eqv-ProAir HFA) 90 mcg/inh inhalation aerosol See Instructions, INHALE 2 PUFFS EVERY 4 HOURS NEEDED FOR WHEEZING, # 25.5 Unknown, 0 Refills, [facility], 90, INHALE 2 PUFFS EVERY 4 HOURS [...] 1 Refills, Maintenance, 01/11/22 13:40:00 EST, Solution, [facility]/pharmacy #[id number], Partial fill upon patient request [...] 08/26/22 16:25:00 EDT, Route to Pharmacy Electronically, [facility]/pharmacy #[id number], Partial fill upon patient request if the prescription is for a schedule... Start Date: 08/26/22 Stop Date: 02/22/23 Status: Ordered Symbicort 160mcg/4.5mcg Inhaler 2, puffs, Inhalation, 2 times a day, no substitutions, # 1 each, Refills 1, Tot. Refills 1, Maintenance, 09/09/22 9:57:00 EDT, Aerosol, Route to Pharmacy Electronically, [id number], [facility]/pharmacy #[id number], 160.02, cm, 08/26/22 15... Start Date: [...] Team Personnel Name: Vicky Costa NP Position: [facility] Associate Professional Member Role: Primary Care Nurse Address: Address: [address] [place] [address]- Name: Parvin Salomon MD Position: [facility] SUPERVISOR GELATIN PLANT MD Member Role: Lifetime SUPERVISOR GELATIN PLANT Physician Address: Address: [address] [place] [address] [facility], [place] [address]- Name: Alysha Naranjo NP Position: [facility] PCO Associate Professional Member Role: PCP Address: Address: [address] [place] [address] [place], [place] [address] Care Team Related Persons Name: NEL GARCIA Address: home [address] [place] [address] Name: SUNNY BUTT Address: home [address] [place] [address] Name: MEGGAN MCKEON Address: home [address] [place] [address] Name: CHELA SHAHID Address: home [address] [place] [address]
--- OUTSIDE RECORDS SUMMARY | 2024-04-22 09:22 | XMS_ITS | Continuity of Care Document ---
Author Organization [facility] Address [address] [place] [address]- Care Team Providers Care Loan Secretary Name Role Phone Harish Espinoza MD Primary Care Physician [phone] Encounter [facility] Date(s): 06/09/21 - 07/09/21 [facility] Adult [address] [place] [address]- Allergies, Adverse Reactions, Alerts Substance Reaction Severity Status Cats Active Dust Active Grass Active Latex hives/rash Active Other Environmental Allergy Maple, [place], [place], Pollen Active Immunizations Given and Recorded Vaccine [...] Comment: 2nd one 2Admin Note: at work [employer] [facility] 3Admin Note: VIS GIVEN FLULAVAL 4Admin Note: GIVEN BY DG 5Admin Note: [employer] Medications albuterol 0.083% inhalation solution 3 mL = 2.5 mg, Inhalation, Every 6 hours, PRN for wheezing/shortness of breath, # 60 each, 2 Refills, Maintenance, 12/15/20 9:59:00 EST, Solution, [facility]/pharmacy #[id number], Partial fill upon patient request if the prescription is for a schedule II opioid dr... Start Date: 10/28/20 Status: Ordered Diflucan 150 mg oral tablet 1 tablet = 150 mg, By Mouth, Once, # 1 tablet, 0 Refills, Soft Stop, 06/22/21 11:41:00 EDT, Tablet,[facility]/pharmacy #[id number], Partial fill upon patient request if the prescription is for a schedule II opioid drug., 160.02, cm, 05/04/21 8:34:00 EDT, Height,... Start Date: 06/22/21 Status: Ordered Diflucan 150 mg oral tablet See Instructions, 1 tablet By Mouth Once, # 2 tablet, 0 Refills, Soft Stop, 05/13/21 15:32:00 EDT, Tablet, [facility]/pharmacy #[id number], take 1 tablet by mouth, if symptoms [...]
--- OUTSIDE RECORDS SUMMARY | 2024-04-22 09:22 | XMS_ITS | Continuity of Care Document ---
Author Organization [facility] Address [address] [place] [address]- Care Team Providers Care Golf Sales Manager Name Role Phone Todd Quiroga DO Primary Care Physician En[place] [facility] [place] Date(s[place] 10/04/23 - 10/11/23 [facility] [address] [place] [address]- Encounter Diagnosis Mild persistent asthma(Discharge Diagnosis) - 10/04/23 Anxiety(Discharge Diagnosis) - 10/04/23 Migraine(Discharge Diagnosis) - 10/04/23 Psoriasis(Discharge Diagnosis) - 10/04/23 Encounter for routine adult health examination(Discharge Diagnosis) - 10/04/23 PTSD (post-traumatic stress disorder)(Discharge Diagnosis) - 10/04/23 Attending Physician: Angelica NOGUEIRA, Melva Hdez Allergies, Adverse Reactions, Alerts Substance Reaction Severity Status amoxicillin Active Cats Active Dust Active Grass Active Latex hives/rash Active Other Environmental Allergy Maple, [place], [place], Pollen Active Immunizations Given and Recorded Vaccine [...] (DT) 11/14/04 Given 1Admin Note: at work [employer] 2Admin Note: VIS GIVEN FLULAVAL 3Result Comment: 2nd one 4Admin Note: GIVEN BY DG 5Admin Note: [employer] [facility] Medications Albuterol (Eqv-ProAir HFA) 90 mcg/inh inhalation aerosol See Instructions, INHALE 2 PUFFS EVERY 4 HOURS NEEDED FOR WHEEZING, # 25.5 Unknown, 0 Refills, [facility], 90, INHALE 2 PUFFS EVERY 4 HOURS [...] Gm, 3 Refills, Maintenance, 07/28/23 12:24:00 EDT, [facility]/pharmacy #[id number], Partial fill upon patient request if the prescription is for a schedule II opioid drug., 2 puffs Inhalat... Start Date: 07/28/23 Status: Ordered Singulair 10 mg oral tablet 10 mg, 1, tablet, By Mouth, Daily before dinner, # 30 tablet, Refills 5, Tot. Refills 5, Maintenance, 08/26/22 16:25:00 EDT, Route to Pharmacy Electronically, [facility]/pharmacy #[id number], Partial fill upon patient request if the [...] Effective Dates Health Status Clinical Service Informant Mild persistent asthma Discharge Diagnosis 10/04/23 Anxiety Discharge Diagnosis 10/04/23 Migraine Discharge Diagnosis 10/04/23 Psoriasis Discharge Diagnosis 10/04/23 Encounter for routine adult health examination Discharge Diagnosis 10/04/23 PTSD (post-traumatic stress disorder) Discharge Diagnosis 10/04/23 Vital Signs Most recent to oldest [Reference Range]: 1 Height 160.02 cm (10/04/23 10:22 AM) Weight 83 kg (10/04/23 10:22 AM) Oxygen Saturation [94-100 %] 97 % (10/04/23 10:22 AM) Pulse Rate [55-90 bpm] 60 bpm (10/04/23 10:22 AM) Body Mass Index [18.5-24.99 kg/m2] 32.41 kg/m2 *>HHI* (10/04/23 10:22 AM) Blood Pressure [90-138/55-84 mm Hg] 125/ 83mm Hg (10/04/23 10:22 AM) Blood pressure sites Arm, right (10/04/23 10:22 AM) Weight Obtained Via Standing scale (10/04/23 10:22 AM) Social History Social History Type Response Smoking Status Former smoker entered on: 05/23/15 Sex Note * Marta Longoria: PERFORM, SIGN, VERIFY Event Display: Patient Education/Instruction Authored Date: [id number] [facility] Clinical Summary Name GARY BUTT Age 48 Years 1975 PCP Todd Quiroga DO PCP Visit Date 10/04/2023 10:20:00 Additional Instructions: Scheduled Appointments?? Future Appointments ?[facility] [address]??[place],??[place],??[address] ?Phone:??[phone]?Fax:??-- ?Appt. Date:??11/02/2023?11:00 AM ?Scheduled Provider:??[facility] Follow-Up Instructions ?? With: Address: When: 04/03/2024 @ 10:00 AM WITH MELVA ANAND NP With: Address: When: Angelica NOGUEIRA, Melva Hdez [facility] [place] [address] In 6 months Comments: Asthma??f/u Diagnosis Psoriasis, unspecified; Encounter for general adult medical examination without abnormal findings; Anxiety disorder, unspecified; Mild persistent asthma, uncomplicated; Migraine, unspecified, not intractable, without status migrainosus; Post-traumatic stress disorder, unspecified Medications: Please continue your medications until [...] throat after use. Refills: 3. Next Dose: Cetirizine (ZyrTEC 10 mg oral [...] capsule Oral Daily at Bedtime. Next Dose: No Longer Take the Following Medications Lorazepam (LORazepam 0.5 mg oral tablet) 1 tab(s) Oral twice a day as needed as needed for anxiety. Allergy Info:?? Other Environmental Allergy; Latex; Grass; Dust; Cats; amoxicillin Medications Given This Visit Future Orders ?Comprehensive Metabolic Panel? Order Date:10/04/23?- Complete on or after?10/04/23 Vital Signs Height 160.02 cm Weight 83 kg BMI 32.41 kg/m2 Blood Pressure 125 mm Hg/83 mm Hg Temperature Pulse Rate 60 bpm Respiratory Rate 02 Sat Mode of Delivery 97 %/ You can now view a summary of your hospital visit from the comfort of your home through a free online portal called Verient. Verient is a website that allows you to securely view your medical information including discharge summary, medications and follow-up visits. ??You can alsosend a secure electronic message to your doctor???s office to request appointments, renew medications or just ask a question. You can enroll at [email or web address] or register during your next office visit. [...] care provider, you may find a [facility] provider by calling [facility] [employer] Link at [phone]. [facility], in keeping with [facility] guidance, no longer requires face masks for [...] Team Personnel Name: Vicky Costa NP Position: [facility] Associate Professional Member Role: Primary Care Nurse Address: Address: [address] [place] [address]- [place] Name: Parvin Salomon MD Position: [facility] TEARER PRESS CLIPPING MD Member Role: Lifetime TEARER PRESS CLIPPING Physician Address: Address: [address] [place] [address] [facility], [place] [address]- [place] Name: Todd Quiroga DO Position: [facility] Physician - Primary Care Member Role: PCP Address: Address: [address] [place] [address]- Care Team Related Persons Name: NEL GARCIA Address: home [address] [place] [address] Name: SUNNY BUTT Address: home [address] [place] [address] Name: MEGGAN MCKEON Address: [address] [place] [address] Name: CHELA SHAHID Address: home [address] [place] [address]
--- OUTSIDE RECORDS SUMMARY | 2024-04-22 09:22 | XMS_ITS | Continuity of Care Document ---
Author Organization [facility] Address [address] [place] [address]- Care Team Providers Care Insulation Cutter Name Role Phone Todd Quiroga DO Primary Care Physician [place] [facility] [place] 07[place]23 [place] 08/24/23 [facility] [address] [place], [place] [address] Allergies, Adverse Reactions, Alerts Substance Reaction Severity Status amoxicillin Active Cats Active Dust Active Other Environmental Allergy Maple, [place], [place], Pollen Active Grass Active Latex hives/rash Active [...] (DT) 11/14/04 Given 1Admin Note: at work [employer] 2Admin Note: VIS GIVEN FLULAVAL 3Result Comment: 2nd one 4Admin Note: GIVEN BY DG 5Admin Note: [facility] Medications Albuterol (Eqv-ProAir HFA) 90 mcg/inh inhalation aerosol See Instructions, INHALE 2 PUFFS EVERY 4 HOURS NEEDED FOR WHEEZING, # 25.5 Unknown, 0 Refills, [facility], 90, INHALE 2 PUFFS EVERY 4 HOURS NEEDED FOR WHEEZING, 160.02, cm, 05/06/22 15:43:00 EDT, Height, 82.6, kg, 08/06/21 16:12:00 EDT, Dry... Start Date: 06/23/22 Status: Ordered albuterol 0.083% inhalation solution 3 mL = 2.5 mg, Inhalation, Every 6 hours, PRN for wheezing/shortness of breath, # 60 each, 2 Refills, Maintenance, 10/28/20 9:59:00 EST, Solution, [facility]/pharmacy #[id number], Partial fill upon patient request if the prescription is for a schedule II opioid dr... Start Date: 10/28/20 Status: Ordered albuterol-ipratropium 3 mg-0.5 mg/3 ml inhalation solution 3 mL, Inhalation, 4 times a day, # 90 mL, 1 Refills, Maintenance, 01/11/22 13:40:00 EST, Solution, [facility]/pharmacy #[id number], Partial fill upon [...] 0 Refills, Maintenance, 12/27/22 10:39:00 EST, Tablet, [facility]/pharmacy #[id number], Partial fill upon [...] Gm, 3 Refills, Maintenance, 07/28/23 12:24:00 EDT, [facility]/pharmacy #[id number], Partial fill upon patient request if the prescription is for a schedule II opioid drug., 2 puffs Inhalat... Start Date: 07/28/23 Status: Ordered Singulair 10 mg oral tablet 10 mg, 1, tablet, By Mouth, Daily before dinner, # 30 tablet, Refills 5, Tot. Refills 5, Maintenance, 08/26/22 16:25:00 EDT, Route to Pharmacy Electronically, [facility]/pharmacy #[id number], Partial fill upon [...] Personnel Name: Igor NOGUEIRA, Vicky Murrieta Position: [facility] Associate Professional Member Role: Primary Care Nurse Address: Address: [address] [place] [address]- Name: Parvin Salomon MD Position: [facility] OTR VAN CDL TRUCK DRIVER MD Member Role: Lifetime OTR VAN CDL TRUCK DRIVER Physician Address: Address: [address] [place] [address] [facility], [place] [address]- Name: Todd Quiroga DO Position: [facility] Physician - Primary Care Member Role: PCP Address: Address: [address] [place] [address]- Care Team Related Persons Name: NEL GARCIA Address: home [address] [place] [address] Name: SUNNY BUTT Address: home [address] [place] [address] Name: MEGGAN MCKEON Address: [address] [place] [address] Name: CHELA SHAHID Address: home [address] [place] [address]
--- OUTSIDE RECORDS SUMMARY | 2024-04-22 09:22 | XMS_ITS | Continuity of Care Document ---
Author Organization [facility] Address [address] [place] [address]- Care Team Providers Care Special Education Instructor Name Role Phone Khang NOGUEIRA, Karina Goode Primary Care Physician ( [phone] Encounter [facility] [place] Date(s): 03/31/20 - 04/07/20 [facility] Adult [address] [place] [address]- [facility] Encounter Diagnosis Seasonal allergies(Discharge Diagnosis) - 03/31/20 Attending Physician: Karina Quiñonez NP Allergies, Adverse Reactions, Alerts Substance Reaction Severity Status Cats Active Dust Active Grass Active Latex hives/rash Active Other Environmental Allergy Maple, [place], [place], Pollen Active Immunizations Given and Recorded Vaccine [...] (DT) 11/14/04 Given 1Admin Note: at work [facility] [facility] [employer] 2Admin Note: VIS GIVEN FLULAVAL 3Admin Note: GIVEN BY 4Admin Note: [facility] Medications Flovent HFA 110 mcg/inh inhalation aerosol [...] 8:50:00 EST, Aerosol, Route to Pharmacy Electronically, [id number], [facility]/pharmacy #[id number], 160.02, cm, 11/26/19 8:32:00 EST, He... [...] Dates Health Status Cl inical Service Informant Seasonal allergies Discharge Diagnosis 03/31/20 Social History Social History Type Response Smoking Status Former smoker entered on: 05/23/15 Sex
--- OUTSIDE RECORDS SUMMARY | 2024-04-22 09:23 | XMS_ITS | Continuity of Care Document ---
Author Organization [facility] Address [address] [place] [address]- Care Team Providers Care Assistant Merchandise Manager Name Role Phone Jose A NOGUEIRA, Alysha Lyons Primary Care Physician Encounter [facility] Date(s): 07/26/22 - 08/25/22 [facility] [address] [place] [address]- Allergies, Adverse Reactions, Alerts Substance Reaction Severity Status amoxicillin Active Cats Active Latex hives/rash Active Other Environmental Allergy Maple, [place], [place], Pollen Active Dust Active Grass Active Immunizations Given and Recorded [...] (DT) 11/14/04 Given 1Admin Note: at work [employer] 2Admin Note: VIS GIVEN FLULAVAL 3Result Comment: 2nd one 4Admin Note: GIVEN BY DG 5Admin Note: [employer] Medications Albuterol (Eqv-ProAir HFA) 90 mcg/inh inhalation aerosol See Instructions, INHALE 2 PUFFS EVERY 4 HOURS NEEDED FOR WHEEZING, # 25.5 Unknown, 0 Refills, [facility], 90, INHALE 2 PUFFS EVERY 4 HOURS NEEDED FOR WHEEZING, 160.02, cm, 05/06/22 15:43:00 EDT, Height, 82.6, kg, 08/06/21 16:12:00 EDT, Dry... Start Date: 06/23/22 Status: Ordered albuterol 0.083% inhalation solution 3 mL = 2.5 mg, Inhalation, Every 6 hours, PRN for wheezing/shortness of breath, # 60 each, 2 Refills, Maintenance, 10/28/20 9:59:00 EST, Solution, [facility]/pharmacy #[id number], Partial fill upon patient request if the prescription is for a schedule II opioid dr... Start Date: 10/28/20 Status: Ordered albuterol-ipratropium 3 mg-0.5 mg/3 ml inhalation solution 3 mL, Inhalation, 4 times a day, # 90 mL, 1 Refills, Maintenance, 01/11/22 13:40:00 EST, Solution, [facility]/pharmacy #[id number], Partial fill upon patient request if the prescription is for a schedule II opioid drug., 3 mL Inhalation 4 times a day, 160.02, cm,... Start Date: 01/11/22 Status: Ordered Azithromycin 5 Day Dose Pack 250 mg oral tablet 1 pack/packet, By Mouth, Once, # 6 tablet, 0 Refills, Soft Stop, 02/15/22 13:05:00 EDT, Tablet, [facility]/pharmacy #[id number], Partial fill upon patient request if the prescription is for a schedule II opioid drug., 160.02, cm, 01/11/22 13:08:00 EST, Height, 82.... Start Date: 02/15/22 Status: Ordered Diflucan 150 mg oral tablet 1 tablet = 150 mg, By Mouth, Once, # 1 tablet, 0 Refills, Soft Stop, 06/22/21 11:41:00 EDT, Tablet,[facility]/pharmacy #[id number], Partial fill upon patient request if the prescription is for a schedule II opioid drug., 160.02, cm, 05/04/21 8:34:00 EDT, Height,... Start Date: 06/22/21 Status: Ordered Diflucan 150 mg oral tablet 1 tablet = 150 mg, By Mouth, Once, # 1 tablet, 0 Refills, Soft Stop, 02/13/22 15:31:00 EDT, Tablet,[facility]/pharmacy #[id number], Partial fill upon patient request if the prescription is for a schedule II opioid drug., 160.02, cm, 01/11/22 13:08:00 EST, Height,... Start Date: 02/13/22 Status: Ordered Diflucan 150 mg oral tablet See Instructions, 1 tablet By Mouth Once, # 2 tablet, 0 Refills, Soft Stop, 05/13/21 15:32:00 EDT, Tablet, [facility]/pharmacy #[id number], take 1 tablet by mouth, if symptoms [...] Personnel Name: Alysha Naranjo NP Address: Address: [address] [place] [address]
--- OUTSIDE RECORDS SUMMARY | 2024-04-22 09:23 | XMS_ITS | Continuity of Care Document ---
Author Organization [facility] [place] Address [address] [place] [address]- Care Team Providers Care Analysis Mgr Name Role Phone Jose A NOGUEIRA, Alysha Hdez Primary Care Physician [facility] Date(s): 02/09/22 - 03/11/22 [facility] Adult [address] [place] [address]- Allergies, Adverse Reactions, Alerts Substance Reaction Severity Status amoxicillin Active Cats Active Dust Active Other Environmental Allergy Maple, [place], [place], Pollen Active Latex hives/rash Active Grass Active Immunizations Given and Recorded [...] (DT) 11/14/04 Given 1Admin Note: at work [place] [employer] 2Admin Note: VIS GIVEN FLULAVAL 3Result Comment: 2nd one 4Admin Note: GIVEN BY 5Admin Note: [employer] [facility] Medications albuterol 0.083% inhalation solution [...] Refills, Soft Stop, 02/15/22 13:05:00 EDT, Tablet, [facility]/pharmacy #[id number], Partial fill upon patient request if the prescription is for a schedule II opioid drug., 160.02, cm, 01/11/22 13:08:00 EST, Height, 82.... Start Date: 02/15/22 Status: Ordered Diflucan 150 mg oral tablet 1 tablet = 150 mg, By Mouth, Once, # 1 tablet, 0 Refills, Soft Stop, 06/22/21 11:41:00 EDT, Tablet,[facility]/pharmacy #[id number], Partial fill upon patient request if the prescription is for a schedule II opioid drug., 160.02, cm, 05/04/21 8:34:00 EDT, Height,... Start Date: 06/22/21 Status: Ordered Diflucan 150 mg oral tablet 1 tablet = 150 mg, By Mouth, Once, # 1 tablet, 0 Refills, Soft Stop, 02/13/22 15:31:00 EDT, Tablet,[facility]/pharmacy #[id number], Partial fill upon patient request if the prescription is for a schedule II opioid drug., 160.02, cm, 01/11/22 13:08:00 EST, Height,... Start Date: 02/13/22 Status: Ordered Diflucan 150 mg oral tablet See Instructions, 1 tablet By Mouth Once, # 2 tablet, 0 Refills, Soft Stop, 05/13/21 15:32:00 EDT, Tablet, [facility]/pharmacy #[id number], take 1 tablet by mouth, if symptoms [...]
--- OUTSIDE RECORDS SUMMARY | 2024-04-22 09:23 | XMS_ITS | Continuity of Care Document ---
Author Organization [facility] Address [address] [place] [address]- Care Team Providers Care Hydraulic Engineer Name Role Phone Alysha Naranjo NP Primary Care Physician Encounter [facility] Date(s): 08/26/22 - 09/25/22 [facility] [address] [place] [address]- Attending Physician: Admjames, Anthony Admitting Physician: Admtr, Anthony Referring Physician: Admtr, Ar8 Allergies, Adverse Reactions, Alerts Substance Reaction Severity Status amoxicillin Active Cats Active Other Environmental Allergy Maple, [place], [place], Pollen Active Dust Active Grass Active Latex [...] (DT) 11/14/04 Given 1Admin Note: at work [employer] 2Admin Note: VIS GIVEN FLULAVAL 3Result Comment: 2nd one 4Admin Note: GIVEN BY DG 5Admin Note: [employer] Medications Albuterol (Eqv-ProAir HFA) 90 mcg/inh inhalation aerosol See Instructions, INHALE 2 PUFFS EVERY 4 HOURS NEEDED FOR WHEEZING, # 25.5 Unknown, 0 Refills, [id number], 90, INHALE 2 PUFFS EVERY 4 HOURS NEEDED FOR WHEEZING, 160.02, cm, 05/06/22 15:43:00 EDT, Height, 82.6, kg, 08/06/21 16:12:00 EDT, Dry... Start Date: 06/23/22 Status: Ordered albuterol 0.083% inhalation solution 3 mL = 2.5 mg, Inhalation, Every 6 hours, PRN for wheezing/shortness of breath, # 60 each, 2 Refills, Maintenance, 10/28/20 9:59:00 EST, Solution, [facility]/pharmacy #[id number], Partial fill upon patient [...] 16:25:00 EDT, Route to Pharmacy Electronically, [facility]/pharmacy #[id number], Partial fill upon patient request if the prescription is for a schedule... Start Date: 08/26/22 Stop Date: 02/22/23 Status: Ordered Symbicort 160mcg/4.5mcg Inhaler 2, puffs, Inhalation, 2 times a day, no substitutions, # 1 each, Refills 1, Tot. Refills 1, Maintenance, 09/09/22 9:57:00 EDT, Aerosol, Route to Pharmacy Electronically, [id number], [facility]/pharmacy #[id number], 160.02, cm, 08/26/22 15... Start Date: [...] smoker entered on: 05/23/15 Sex Note * Event Display: Non BH Lab Results Authored Date: Patient Care team information Care Team Personnel Name: Igor NOGUEIRA, Vicky Murrieta Position: [facility] Associate Professional Member Role: Primary Care Nurse Address: Address: [address] [place] [address]- Name: Parvin Salomon MD Position: [facility] MACHINE TESTER MD Member Role: Lifetime MACHINE TESTER Physician Address: Address: [address] [place] [address] [facility], [place] [address]- Name: Alysha Naranjo NP Position: [facility] PCO Associate Professional Member Role: PCP Address: Address: [address] [place] [address] [place] [address]- Care Team Related Persons Name: NEL GARCIA Address: home [address] [facility] [place] [address] Name: SUNNY BUTT Address: home [address] [place] [address] Name: MEGGAN MCKEON Address: home [address] [place] [address] Name: CHELA SHAHID Address: home [address] [facility] [place] [address]
--- OUTSIDE RECORDS SUMMARY | 2024-04-22 09:23 | XMS_ITS | Continuity of Care Document ---
Author Organization [facility] Address [address] [place] [address]- Care Team Providers Care Supervisor [employer] Name Role Phone Todd Quiroga DO Primary Care Physician [phone] [facility] Date(s): 05/18/23 - 06/17/23 [facility] [address] [place], [place] [address] Allergies, Adverse Reactions, Alerts Substance Reaction Severity Status amoxicillin Active Cats Active Other Environmental Allergy Maple, [place], [place], Pollen Active Dust Active Grass Active Latex [...] (DT) 11/14/04 Given 1Admin Note: at work [place] [employer] 2Admin Note: VIS GIVEN FLULAVAL 3Result Comment: 2nd one 4Admin Note: GIVEN BY DG 5Admin Note: [employer] Medications Albuterol (Eqv-ProAir HFA) 90 mcg/inh inhalation aerosol See Instructions, INHALE 2 PUFFS EVERY 4 HOURS NEEDED FOR WHEEZING, # 25.5 Unknown, 0 Refills, [facility], 90, INHALE 2 PUFFS EVERY 4 HOURS [...] 0 Refills, Maintenance, 12/27/22 10:39:00 EST, Tablet, [facility]/pharmacy #[id number], Partial fill [...] 08/26/22 16:25:00 EDT, Route to Pharmacy Electronically, [facility]/pharmacy #[id number], Partial fill upon patient request if the prescription is for a schedule... Start Date: 08/26/22 Stop Date: 02/22/23 Status: Ordered Symbicort 160mcg/4.5mcg Inhaler 2, puffs, Inhalation, 2 times a day, no substitutions, # 1 each, Refills 1, Tot. Refills 1, Maintenance, 09/09/22 9:57:00 EDT, Aerosol, Route to Pharmacy Electronically, [id number], [facility]/pharmacy #0373, 160.02, cm, 08/26/22 15... Start Date: [...] Personnel Name: Igor NOGUEIRA, Vicky Murrieta Position: [facility] Associate Professional Member Role: Primary Care Nurse Address: Address: [address] [place] [address]- Name: Parvin Salomon MD Position: [facility] DIPLOMA PHARMACY TECHNICIAN MD Member Role: Lifetime DIPLOMA PHARMACY TECHNICIAN Physician Address: Address: [address] [place], [place] [id number] [facility], [place] [address]- Name: Todd Quiroga DO Position: [facility] Physician - Primary Care Member Role: PCP Address: Address: [address] [place] [address]- Care Team Related Persons Name: NEL GARCIA Address: home [address] [place] [address] Name: SUNNY BUTT Address: home [address] [place] [address] Name: MEGGAN MCKEON Address: home [address] [place] [address] Name: CHELA SHAHID Address: home [address] [place] [address]
--- OUTSIDE RECORDS SUMMARY | 2024-04-22 09:23 | XMS_ITS | Continuity of Care Document ---
Author Organization [facility] Address [address] [place] [address]- Care Team Providers Care Director Of Player Personnel Name Role Phone Todd Quiroga DO Primary Care Physician [phone] Encounter [facility] Date(s): 07/22/23 - 07/29/23 [facility] [address] [place] [address]- Encounter Diagnosis Mild persistent asthma(Discharge Diagnosis) - 07/22/23 Attending Physician: Thalia CANDELARIO, Daily Cosme Allergies, Adverse Reactions, Alerts Substance Reaction Severity Status amoxicillin Active Cats Active Dust Active Other Environmental Allergy Maple, [place], [place], Pollen Active Grass Active Latex hives/rash Active [...] (DT) 11/14/04 Given 1Admin Note: at work [employer] [facility] 2Admin Note: VIS GIVEN FLULAVAL 3Result Comment: 2nd one 4Admin Note: GIVEN BY DG 5Admin Note: [employer] [facility] Medications Albuterol (Eqv-ProAir HFA) 90 mcg/inh inhalation aerosol See Instructions, INHALE 2 PUFFS EVERY 4 HOURS NEEDED FOR WHEEZING, # 25.5 Unknown, 0 Refills, [facility], 90, INHALE 2 PUFFS EVERY 4 HOURS [...] Gm, 3 Refills, Maintenance, 07/28/23 12:24:00 EDT, [facility]/pharmacy #[id number], Partial fill upon patient request if the prescription is for a schedule II opioid drug., 2 puffs Inhalat... Start Date: 07/28/23 Status: Ordered Singulair 10 mg oral tablet 10 mg, 1, tablet, By Mouth, Daily before dinner, # 30 tablet, Refills 5, Tot. Refills 5, Maintenance, 08/26/22 16:25:00 EDT, Route to [id number], [...] Confirmed Active Obese class I Confirmed Active Diagnosis Diagnosis Type Effective Dates Health Status Clinical Service Informant Mild persistent asthma Discharge Diagnosis 07/22/23 Vital Signs Most recent to oldest [Reference Range]: 1 Height 160.02 cm (07/22/23 2:02 PM) Oxygen Saturation [94-100 %] 97 % (07/22/23 2:02 PM) Pulse Rate [55-90 bpm] 66 bpm (07/22/23 2:02 PM) Blood Pressure [90-138/55-84 mm Hg] 137/ 83mm Hg (07/22/23 2:02 PM) Social History Social History Type Response Smoking Status Former smoker entered on: 05/23/15 Sex Note * Marta Longoria: PERFORM, SIGN, VERIFY Event Display: Patient Education/Instruction Authored Date: [id number] [facility] *[facility] Clinical Summary Name GARY BUTT Age 48 Years 1975 PCP Todd Quiroga DO PCP Visit Date 07/22/2023 13:38:00 Additional Instructions: Scheduled Appointments?? Future Appointments ?No Future Appointments Scheduled Follow-Up Instructions ?? Diagnosis Medications: Please continue your medications until treatment is completed or stopped by your provider. Discuss any questions related to medications with your provider. New Medications [id number] [address] [place], [place] [id number], [phone] Fluticasone-Salmeterol (Advair Diskus 100 mcg-50 mcg inhalation powder) 1 puff Inhalation twice a day. rinse mouth and throat after use. Refills: 3. Next Dose: Medications to Continue with No [...] mouth x4 days. Refills: 0. Next Dose: Budesonide-Formoterol (Symbicort 160mcg/4.5mcg Inhaler) 2 [...] MOUTH TWICE A DAY NEEDED. Next Dose: Lorazepam (LORazepam 0.5 mg oral [...] Orders ?No future orders Vital Signs Height 160.02 cm Weight BMI Blood Pressure 137 mm Hg/83 mm Hg Temperature Pulse Rate 66 bpm Respiratory Rate 02 Sat Mode of Delivery 97 %/ You can now view a summary of your hospital visit from the comfort of your home through a free online portal called [facility]. ISVS is a website that allows you to securely view your medical information including discharge summary, medications and follow-up visits. ??You can alsosend a secure electronic message to your doctor???s office to request appointments, renew medications or just ask a question. You can enroll at [email or web address] or register during your next office visit. [...] primary care provider, you may find a [facility] provider by calling [facility] Flocations Link at [phone]. [facility], in keeping with [facility] guidance, no longer requires face masks for [...] Personnel Name: Igor NOGUEIRA, Vicky Murrieta Position: [facility] Associate Professional Member Role: Primary Care Nurse Address: Address: [address] [facility] [place] [address]- [place] Name: Parvin Salomon MD Position: [facility] TICKET COUNTER MD Member Role: Lifetime TICKET COUNTER Physician Address: Address: [address] [place] [address] [facility], [place] [address]- [place] Name: Todd Quiroga DO Position: [facility] Physician - Primary Care Member Role: PCP Address: Address: [address] [place] [address]- Care Team Related Persons Name: NEL GARCIA Address: home [address] [facility] [place] [address] Name: SUNNY BUTT Address: home [address] [place] [address] Name: MEGGAN MCKEON Address: home [address] [place] [address] Name: CHELA SHAHID Address: home [address] [place] [address]
--- OUTSIDE RECORDS SUMMARY | 2024-04-22 09:23 | XMS_ITS | Continuity of Care Document ---
Author Organization [facility] [place] Address [address] [place] [address]- Care Team Providers Care [place] Supervisor Name Role Phone Olga CANDELARIO, Harish Rivera Primary Care Physician [facility] Date(s): 05/04/21 - 06/03/21 [facility] Adult [address] [place] [address]- Attending Physician: Admtr, Ar8 Allergies, Adverse Reactions, Alerts Substance Reaction Severity Status Cats Active Dust Active Grass Active Latex hives/rash Active Other Environmental Allergy Maple, [place], [place], Pollen Active Immunizations Given and Recorded Vaccine [...] Comment: 2nd one 2Admin Note: at work [employer] [facility] 3Admin Note: VIS GIVEN FLULAVAL 4Admin Note: GIVEN BY 5Admin Note: [employer] Medications albuterol 0.083% inhalation solution 3 mL = 2.5 mg, Inhalation, Every 6 hours, PRN for wheezing/shortness of breath, # 60 each, 2 Refills, Maintenance, 10/28/20 9:59:00 EST, Solution, [facility]/pharmacy #[id number], Partial fill upon patient request if the prescription is for a schedule II opioid drMarissa. Start Date: 10/28/20 Status: Ordered Diflucan 150 mg oral tablet See Instructions, 1 tablet By Mouth Once, # 2 tablet, 0 Refills, Soft Stop, 05/13/21 15:32:00 EDT, Tablet, [facility]/pharmacy #[id number], take 1 tablet by mouth, if symptoms [...]
--- OUTSIDE RECORDS SUMMARY | 2024-04-22 09:23 | XMS_ITS | Continuity of Care Document ---
Author Organization [facility] Address [address] [place] [address]- Care Team Providers Care Tailings Man Name Role Phone Jose A NOGUEIRA, Alysha Lyons Primary Care Physician Encounter [facility] Date(s): 07/22/22 - 08/22/22 [facility] [address] [place] [address]- Attending Physician: Tyler Eisenberg MD Allergies, Adverse Reactions, Alerts Substance Reaction Severity Status amoxicillin Active Cats Active Dust Active Grass Active Latex hives/rash Active Other Environmental Allergy Maple, [place], [place], Pollen Active Immunizations Given and Recorded Vaccine [...] (DT) 11/14/04 Given 1Admin Note: at work [employer] 2Admin Note: VIS GIVEN FLULAVAL 3Result Comment: 2nd one 4Admin Note: GIVEN BY DG 5Admin Note: [employer] Medications Albuterol (Eqv-ProAir HFA) 90 mcg/inh inhalation aerosol See Instructions, INHALE 2 PUFFS EVERY 4 HOURS NEEDED FOR WHEEZING, # 25.5 Unknown, 0 Refills, [facility], 90, INHALE 2 PUFFS EVERY 4 HOURS NEEDED FOR WHEEZING, 160.02, cm, 05/06/22 15:43:00 EDT, Height, 82.6, kg, 08/06/21 16:12:00 EDT, Dry... Start Date: 06/23/22 Status: Ordered albuterol 0.083% inhalation solution 3 mL = 2.5 mg, Inhalation, Every 6 hours, PRN for wheezing/shortness of breath, # 60 each, 2 Refills, Maintenance, 10/28/20 9:59:00 EST, Solution, [facility]/pharmacy #[id number], Partial fill upon patient request if the prescription is for a schedule II opioid dr... Start Date: 10/28/20 Status: Ordered albuterol-ipratropium 3 mg-0.5 mg/3 ml inhalation solution 3 mL, Inhalation, 4 times a day, # 90 mL, 1 Refills, Maintenance, 01/11/22 13:40:00 EST, Solution, [facility]/pharmacy #[id number], Partial fill upon patient request if the prescription is for a schedule II opioid drug., 3 mL Inhalation 4 times a day, 160.02, cm,... Start Date: 01/11/22 Status: Ordered Azithromycin 5 Day Dose Pack 250 mg oral tablet 1 pack/packet, By Mouth, Once, # 6 tablet, 0 Refills, Soft Stop, 02/15/22 13:05:00 EDT, Tablet, [facility]/pharmacy #[id number], Partial fill upon patient request if the prescription is for a schedule II opioid drug., 160.02, cm, 01/11/22 13:08:00 EST, Height, 82.... Start Date: 02/15/22 Status: Ordered Diflucan 150 mg oral tablet 1 tablet = 150 mg, By Mouth, Once, # 1 tablet, 0 Refills, Soft Stop, 06/22/21 11:41:00 EDT, Tablet,[facility]/pharmacy #[id number], Partial fill upon patient request if the prescription is for a schedule II opioid drug., 160.02, cm, 05/04/21 8:34:00 EDT, Height,... Start Date: 06/22/21 Status: Ordered Diflucan 150 mg oral tablet 1 tablet = 150 mg, By Mouth, Once, # 1 tablet, 0 Refills, Soft Stop, 02/13/22 15:31:00 EDT, Tablet,[facility]/pharmacy #[id number], Partial fill upon patient request if the prescription is for a schedule II opioid drug., 160.02, cm, 01/11/22 13:08:00 EST, Height,... Start Date: 02/13/22 Status: Ordered Diflucan 150 mg oral tablet See Instructions, 1 tablet By Mouth Once, # 2 tablet, 0 Refills, Soft Stop, 05/13/21 15:32:00 EDT, Tablet, [facility]/pharmacy #[id number], take 1 tablet by mouth, if symptoms [...] Personnel Name: Alysha Naranjo NP Address: Address: [address] [place] [address]
--- OUTSIDE RECORDS SUMMARY | 2024-04-22 09:23 | XMS_ITS | Continuity of Care Document ---
Author Organization [facility] Address [address] [place] [address]- Care Team Providers Care Staff Physician Name Role Phone Jose A NOGUEIRA, Alysha Lyons Primary Care Physician Encounter [facility] Date(s): 08/26/22 - 09/02/22 [facility] [address] [place] [address]- Encounter Diagnosis Asthma(Discharge Diagnosis) - 08/26/22 Strain of calf muscle(Discharge Diagnosis) - 08/26/22 Attending Physician: Marie Gasca NP Allergies, Adverse Reactions, Alerts Substance Reaction Severity Status amoxicillin Active Cats Active Other Environmental Allergy Maple, [place], [place], Pollen Active Latex hives/rash Active Dust Active Grass Active Immunizations Given [...] (DT) 11/14/04 Given 1Admin Note: at work [employer] 2Admin Note: VIS GIVEN FLULAVAL 3Result Comment: 2nd one 4Admin Note: GIVEN BY DG 5Admin Note: [employer] [facility] Medications Advair Diskus 250 mcg-50 mcg inhalation powder 1, inhalation, Inhalation, 2 times a day, rinse mouth and throat after use, # 1 each, Refills 3, Tot. Refills 3, Maintenance, 08/26/22 16:24:00 EDT, Powder, Route to Pharmacy Electronically, [id number], [facility]/pharmacy #0373, 16... Start Date: 08/26/22 Status: Ordered Albuterol (Eqv-ProAir HFA) 90 mcg/inh inhalation aerosol See Instructions, INHALE 2 PUFFS EVERY 4 HOURS NEEDED FOR WHEEZING, # 25.5 Unknown, 0 Refills, [facility], 90, INHALE 2 PUFFS EVERY 4 HOURS NEEDED FOR WHEEZING, 160.02, cm, 05/06/22 15:43:00 EDT, Height, 82.6, kg, 08/06/21 16:12:00 EDT, Dry... Start Date: 06/23/22 Status: Ordered albuterol 0.083% inhalation solution 3 mL = 2.5 mg, Inhalation, Every 6 hours, PRN for wheezing/shortness of breath, # 60 each, 2 Refills, Maintenance, 10/28/20 9:59:00 EST, Solution, [facility]/pharmacy #[id number], Partial fill upon patient request if the prescription is for a schedule II opioid dr... Start Date: 10/28/20 Status: Ordered albuterol-ipratropium 3 mg-0.5 mg/3 ml inhalation solution 3 mL, Inhalation, 4 times a day, # 90 mL, 1 Refills, Maintenance, 01/11/22 13:40:00 EST, Solution, [facility]/pharmacy #[id number], Partial fill upon patient request [...] 16:25:00 EDT, Route to Pharmacy Electronically, [facility]/pharmacy #[id number], Partial fill upon patient request if the [...] Dates Health Status Cl inical Service Informant Asthma Discharge Diagnosis 08/26/22 Strain of calf muscle Discharge Diagnosis 08/26/22 Vital Signs Most recent to oldest [Reference Range]: 1 Height 160.02 cm (08/26/22 3:44 PM) Weight 84.2 kg (08/26/22 3:44 PM) Oxygen Saturation [94-100 %] 98 % (08/26/22 3:44 PM) Pulse Rate [55-90 bpm] 68 bpm (08/26/22 3:44 PM) Body Mass Index [18.5-24.99 kg/m2] 32.88 kg/m2 *>HHI* (08/26/22 3:44 PM) Blood Pressure [90-138/55-84 mm Hg] 130/ 97mm Hg (08/26/22 3:44 PM) Blood pressure sites Arm, right (08/26/22 3:44 PM) Social History Social History Type Response Smoking Status Former smoker entered on: 05/23/15 Sex Patient Care team information Personnel Name: Jose A NOGUEIRA, Alysha Lyons Address: Address: [address] [place] [address] G[place], [place] [address]
--- OUTSIDE RECORDS SUMMARY | 2024-04-22 09:23 | XMS_ITS | Continuity of Care Document ---
Author Organization [facility] Address [address] [place] [address]- Care Team Providers Care Trend Investigator Name Role Phone Angelique Triana NP Primary Care Physician [phone] [place] [facility] [place]20 [place] 10/25/20 [facility] Adult [address] [place] [address]- Allergies, Adverse Reactions, Alerts Substance Reaction Severity Status Cats Active Dust Active Grass Active Latex hives/rash Active Other Environmental Allergy Maple, [place], [place], Pollen Active Immunizations Given and Recorded Vaccine [...] (DT) 11/14/04 Given 1Admin Note: at work [employer] 2Admin Note: VIS GIVEN FLULAVAL 3Admin Note: GIVEN BY 4Admin Note: [employer] [facility] [place] Medications azithromycin 250 mg oral tablet 1 pack/packet, By Mouth, Once, # 6 tablet, 0 Refills, Soft Stop, 10/03/20 15:38:00 EST, Tablet, [id number], Partial fill upon patient request, 160.02, cm, 10/03/20 14:25:00 EST, Height, 71.5,kg, 02/13/19 6:59:00 EDT, Dry Weight Start Date: 10/03/20 Status: Ordered Flovent HFA 110 mcg/inh inhalation aerosol 2 puffs, Inhalation, 2 times a day, # 12 Gm, 0 Refills, Maintenance, 09/22/20 13:28:00 EST, Aerosol, [facility]/pharmacy #[id number], 160.02, cm, 09/22/20 11:55:00 EST, Height, 71.5, kg, 02/13/19 6:59:00 EDT, DryWeight Start Date: 09/22/20 Status: Ordered Lexapro 10 mg oral tablet [...] 14:56:55 EDT Start Date: 02/02/19 Status: Ordered predniSONE 20 mg oral tablet 2 tablet = 40 mg, By Mouth, Daily, # 14 tablet, 0 Refills, Maintenance, 09/22/20 13:28:00 EST, Tablet, [facility]/pharmacy #[id number], 160.02, cm, 09/22/20 11:55:00 EST, Height, 71.5, kg, 02/13/19 6:59:00 EDT, Dry Weight Start Date: 09/22/20 Status: Ordered ProAir HFA 90 mcg/inh inhalation aerosol with adapter 2, puffs, Inhalation, Every 4 hours, PRN, # 3 each, Refills 0, Tot. Refills 0, Maintenance, 06/13/20 16:14:00 EDT, Aerosol, Route to Pharmacy Electronically, [id number], [facility]/pharmacy #[id number], 160.02, cm, 11/26/19 8:32:00 EST, H... Start Date: 06/13/20 Status: Ordered ZyrTEC 10 mg oral tablet 1 tablet = 10 mg, By Mouth, Daily in AM, # 30 tablet, 0 Refills, Maintenance, 02/02/19 14:57:17 EDT, Tablet Start Date: 02/02/19 Status: Ordered Problem List Condition Effective Dates Status Health Status Inform ant Acute bronchitis with asthma(Confirmed) Active Acute sinusitis(Confirmed) Active Anxiety(Confirmed) Active History of menorrhagia(Confirmed) Active History of pneumonia(Confirmed) Active Social History Social History Type Response Smoking Status Former smoker entered on: 05/23/15 Sex
--- OUTSIDE RECORDS SUMMARY | 2024-04-22 09:23 | XMS_ITS | Continuity of Care Document ---
Author Organization [facility] Delta lt Address [address] [place] [address]- Care Team Providers Care Hospital Chaplain Name Role Phone Angelique Triana NP Primary Care Physician [phone] [facility]counter [facility] Date(s): 10/28/20 - 11/27/20 [facility] Adult [address] [place] [address]- Attending Physician: Admtr, Ar8 Allergies, Adverse Reactions, Alerts Substance Reaction Severity Status Cats Active Dust Active Grass Active Other Environmental Allergy Maple, [place], [place], Pollen Active Latex hives/rash Active Immunizations Given [...] (DT) 11/14/04 Given 1Admin Note: at work [facility] 2Admin Note: VIS GIVEN FLULAVAL 3Admin Note: GIVEN BY 4Admin Note: [employer] Medications albuterol 0.083% inhalation solution 3 mL = 2.5 mg, Inhalation, Every 6 hours, PRN for wheezing/shortness of breath, # 60 each, 2 Refills, Maintenance, 10/28/20 9:59:00 EST, Solution, [id number], Partial fill upon patient request if the [...] 16:14:00 EDT, Aerosol, Route to Pharmacy Electronically, [id number], [facility]/pharmacy #[id number], 160.02, cm, 11/26/19 8:32:00 EST, H... Start Date: 06/13/20 Status: Ordered Symbicort 160mcg/4.5mcg Inhaler 2, puffs, Inhalation, 2 times a day, # 1 each, Refills 3, Tot. Refills 3, Maintenance, 11/20/20 16:56:00 EST, Aerosol, Route to Pharmacy Electronically, [id number], [facility]/pharmacy #0373, 160.02, cm, 10/28/20 9:24:00 EST, Height... [...]
--- OUTSIDE RECORDS SUMMARY | 2024-04-22 09:23 | XMS_ITS | Continuity of Care Document ---
Author Organization [facility] Delta lt Address [address] [place] [address]- Care Team Providers Care Core Driller Name Role Phone Khang CONTROL CHEMIST, Karina Goode Primary Care Physician ( [phone] En[place] [facility] [place] Date(s): 05/28/20 - 06/27/20 [facility] Adult [address] [place] [address]- [facility] Allergies, Adverse Reactions, Alerts Substance Reaction Severity Status Cats Active Dust Active Grass Active Latex hives/rash Active Other Environmental Allergy Maple, [place], [place], Pollen Active Immunizations Given and Recorded Vaccine [...] (DT) 11/14/04 Given 1Admin Note: at work [employer] 2Admin Note: VIS GIVEN FLULAVAL 3Admin Note: GIVEN BY DG 4Admin Note: [employer] [facility] [place] Medications Flovent HFA 110 mcg/inh inhalation aerosol [...] 16:14:00 EDT, Aerosol, Route to Pharmacy Electronically, [id number], [facility]/pharmacy #[id number], 160.02, cm, 11/26/19 8:32:00 EST, [...]
--- OUTSIDE RECORDS SUMMARY | 2024-04-22 09:23 | XMS_ITS | Continuity of Care Document ---
Author Organization [facility] Address [address] [place] [address]- Care Team Providers Care Building Superintendent Name Role Phone Jose A NOGUEIRA, Alysha Hdez Primary Care Physician [phone] Encounter [facility] Date(s): 02/10/22 - 03/12/22 [facility] [address] [place] [address]- Allergies, Adverse Reactions, Alerts Substance Reaction Severity Status amoxicillin Active Cats Active Dust Active Grass Active Latex hives/rash Active Other Environmental Allergy Maple, [place], [place], Pollen Active Immunizations Given and Recorded Vaccine [...] (DT) 11/14/04 Given 1Admin Note: at work [place] [employer] 2Admin Note: VIS GIVEN FLULAVAL 3Result Comment: 2nd one 4Admin Note: GIVEN BY 5Admin Note: [employer] Medications albuterol 0.083% inhalation solution 3 mL = 2.5 mg, Inhalation, Every 6 hours, PRN for wheezing/shortness of breath, # 60 each, 2 Refills, Maintenance, 10/28/20 9:59:00 EST, Solution, [facility]/pharmacy #[id number], Partial fill upon patient request if the prescription is for a schedule II opioid dr... Start Date: 10/28/20 Status: Ordered albuterol-ipratropium 3 mg-0.5 mg/3 ml inhalation solution 3 mL, Inhalation, 4 times a day, # 90 mL, 1 Refills, Maintenance, 01/11/22 13:40:00 EST, Solution, [facility]/pharmacy #[id number], Partial fill upon patient request if the prescription is for a schedule II opioid drug., 3 mL Inhalation 4 times a day, 160.02, cm,... Start Date: 01/11/22 Status: Ordered Azithromycin 5 Day Dose Pack 250 mg oral tablet 1 pack/packet, By Mouth, Once, # 6 tablet, 0 Refills, Soft Stop, 02/15/22 13:05:00 EDT, Tablet, [facility]/pharmacy #[id number], Partial fill upon patient request if the prescription is for a schedule II opioid drug., 160.02, cm, 01/11/22 13:08:00 EST, Height, 82.... Start Date: 02/15/22 Status: Ordered Diflucan 150 mg oral tablet 1 tablet = 150 mg, By Mouth, Once, # 1 tablet, 0 Refills, Soft Stop, 06/22/21 11:41:00 EDT, Tablet,[facility]/pharmacy #[id number], Partial fill upon patient request if the prescription is for a schedule II opioid drug., 160.02, cm, 05/04/21 8:34:00 EDT, Height,... Start Date: 06/22/21 Status: Ordered Diflucan 150 mg oral tablet 1 tablet = 150 mg, By Mouth, Once, # 1 tablet, 0 Refills, Soft Stop, 02/13/22 15:31:00 EDT, Tablet,[facility]/pharmacy #[id number], Partial fill upon patient request if the prescription is for a schedule II opioid drug., 160.02, cm, 01/11/22 13:08:00 EST, Height,... Start Date: 02/13/22 Status: Ordered Diflucan 150 mg oral tablet See Instructions, 1 tablet By Mouth Once, # 2 tablet, 0 Refills, Soft Stop, 05/13/21 15:32:00 EDT, Tablet, [facility]/pharmacy #[id number], take 1 tablet by mouth, if symptoms [...]
--- OUTSIDE RECORDS SUMMARY | 2024-04-22 09:23 | XMS_ITS | Continuity of Care Document ---
Author Organization [facility] Address [address] [place] [address]- Care Team Providers Care Health Promotion Specialist Name Role Phone Alysha Naranjo NP Primary Care Physician [phone] Encounter [facility] [place] Date(s): 07/16/22 - 07/23/22 [facility] [address] [place] [address]- Encounter Diagnosis Poison chicho dermatitis(Discharge Diagnosis) - 07/16/22 Pruritus(Discharge Diagnosis) - 07/16/22 Attending Physician: Tyler Eisenberg MD Referring Physician: Alysha Naranjo NP Allergies, Adverse Reactions, Alerts Substance Reaction Severity Status amoxicillin Active Cats Active Latex hives/rash Active Other Environmental Allergy Maple, [place], [place], Pollen Active Dust Active Grass Active Immunizations [...] 11/14/04 Given 1Admin Note: at work [facility] 2Admin Note: VIS GIVEN FLULAVAL 3Result Comment: 2nd one 4Admin Note: GIVEN BY DG 5Admin Note: [employer] [facility] Medications Albuterol (Eqv-ProAir HFA) 90 mcg/inh inhalation aerosol See Instructions, INHALE 2 PUFFS EVERY 4 HOURS NEEDED FOR WHEEZING, # 25.5 Unknown, 0 Refills, [facility], 90, INHALE 2 PUFFS EVERY 4 HOURS [...] Height, 82.... Start Date: 02/15/22 Status: Ordered cephalexin monohydrate 500 mg oral capsule 1 capsule = 500 mg, By Mouth, 3 times a day, for 10 days, # 30 capsule, 0 Refills, Acute 07/30/22 10:02:00 EDT, 07/20/22 10:02:00 EDT, Capsule, [id number], Partial fill upon patient request if the prescription is for a schedule II opioid drug.... Start Date: 07/20/22 Stop Date: 07/30/22 Status: Ordered Diflucan 150 mg oral tablet [...] Refills, Soft Stop, 05/13/21 15:32:00 EDT, Tablet, [id number], take 1 tablet by mouth, if symptoms [...] Mouth, Daily at bedtime, 0 Refills, Maintenance, 05/30/18 10:10:29 EDT Start Date: 04/12/18 Status: Ordered [...] predniSONE 20 mg oral tablet See Instructions, 60 mg x 3 days - 3 tablets for 3 days 40 mg x 5 days - 2 tablets for 5 days 20 mgx 5 days - 1 tablet for 5 days ( take with food), # 24 tablet, 0 Refills, Acute 07/30/22 12:00:00 EDT, 07/16/22 8:35:00 EDT, [facility]/pharmacy #[id number],... Start Date: 07/16/22 Stop Date: 07/30/22 Status: Ordered Ventolin 90 mcg Inhaler Inhalation, [...] Effective Dates Health Status Clinical Service Informant Poison chicho dermatitis Discharge Diagnosis 07/16/22 Pruritus Discharge Diagnosis 07/16/22 Vital Signs Most recent to oldest [Reference Range]: 1 Height 160.02 cm (07/16/22 8:17 AM) Social History Social History Type Response Smoking Status Former smoker entered on: 05/23/15 Sex Care Team Personnel Name: Alysha Naranjo NP Address: [address] [place] [address]
--- OUTSIDE RECORDS SUMMARY | 2024-04-22 09:23 | XMS_ITS | Continuity of Care Document ---
Author Organization [facility] Address [address] [facility] [address] [place] [address]- Care Team Providers Care Shingle Bolt Cutter Name Role Phone Todd Quiroga DO Primary Care Physician [phone] Encounter 09/23/23 - 12/02/23 [facility] [address], [facility] [address] [place] [address]- Attending Physician: Parvin Salomon MD Admitting Physician: Parvin Salomon MD Referring Physician: Parvin Salomon MD Allergies, Adverse Reactions, Alerts Substance Reaction Severity Status amoxicillin Active Cats Active Dust Active Grass Active Latex hives/rash Active Other Environmental Allergy Maple, [place], [place], Pollen Active Immunizations Given and Recorded Vaccine [...] (DT) 11/14/04 Given 1Admin Note: at work [employer] [facility] 2Admin Note: VIS GIVEN FLULAVAL 3Result Comment: 2nd one 4Admin Note: GIVEN BY ALONDRA 5Admin Note: [facility] Medications Albuterol (Eqv-ProAir HFA) 90 mcg/inh [...] Refills, Soft Stop, 11/21/23 14:31:00 EST, Tablet, [facility]/pharmacy #[id number], Partial fill upon patient request [...] Gm, 3 Refills, Maintenance, 07/28/23 12:24:00 EDT, [facility]/pharmacy #[id number], Partial fill upon patient request if the prescription is for a schedule II opioid drug., 2 puffs Inhalat... Start Date: 07/28/23 Status: Ordered Singulair 10 mg oral tablet 10 mg, 1, tablet, By Mouth, Daily before dinner, # 30 tablet, Refills 5, Tot. Refills 5, Maintenance, 08/26/22 16:25:00 EDT, Route to Pharmacy Electronically, [facility]/pharmacy #[id number], Partial fill upon patient request [...] Team Personnel Name: Vicky Costa NP Position: [facility] Associate Professional Member Role: Primary Care Nurse Address: Address: [address] [place] [id number] [place] Name: Parvin Salomon MD Position: [facility] CHECKERER HAND MD Member Role: Lifetime CHECKERER HAND Physician Address: Address: [address] [place] [address] [facility], [place] [address]- Name: Todd Quiroga DO Position: S Physician - Primary Care Member Role: PCP Address: Address: [address] [place] [address]- Care Team Related Persons Name: RODRIGOREMINEL Cohen Address: home [address] [facility] [place] [address] Name: SUNNY BUTT Address: home [address] [place] [address] Name: MEGGAN MCKEON Address: home [address] [facility] [place] [address] Name: CHELA SHAHID Address: home [address] [place] [address]
--- OUTSIDE RECORDS SUMMARY | 2024-04-22 09:23 | XMS_ITS | Continuity of Care Document ---
Author Organization [facility] Address [address] [place] [address]- Care Team Providers Care Physicist Acoustics Name Role Phone Alysha Naranjo NP Primary Care Physician [phone] [place] [facility] [place] Date(s): 10/08/22 - 11/07/22 [facility] [address] [place] [address]- Attending Physician: Admjames, Anthony Admitting Physician: Admtr, Salbador8 Referring Physician: Admtr, Ar8 Allergies, Adverse Reactions, Alerts Substance Reaction Severity Status amoxicillin Active Cats Active Dust Active Grass Active Latex hives/rash Active Other Environmental Allergy Maple, [place], [place], Pollen Active Immunizations Given and Recorded Vaccine [...] (DT) 11/14/04 Given 1Admin Note: at work [employer] 2Admin Note: VIS GIVEN FLULAVAL 3Result Comment: 2nd one 4Admin Note: GIVEN BY DG 5Admin Note: [employer] [facility] Medications Albuterol (Eqv-ProAir HFA) 90 mcg/inh inhalation aerosol See Instructions, INHALE 2 PUFFS EVERY 4 HOURS NEEDED FOR WHEEZING, # 25.5 Unknown, 0 Refills, [facility], 90, INHALE 2 PUFFS EVERY 4 HOURS NEEDED FOR WHEEZING, 160.02, cm, 05/06/22 15:43:00 EDT, Height, 82.6, kg, 08/06/21 16:12:00 EDT, Dry... Start Date: 06/23/22 Status: Ordered albuterol 0.083% inhalation solution 3 mL = 2.5 mg, Inhalation, Every 6 hours, PRN for wheezing/shortness of breath, # 60 each, 2 Refills, Maintenance, 10/28/20 9:59:00 EST, Solution, [facility]/pharmacy #[id number], Partial fill upon patient request [...] 08/26/22 16:25:00 EDT, Route to Pharmacy Electronically, [facility]/pharmacy #[id number], Partial fill upon patient request if the prescription is for a schedule... Start Date: 08/26/22 Stop Date: 02/22/23 Status: Ordered Symbicort 160mcg/4.5mcg Inhaler 2, puffs, Inhalation, 2 times a day, no substitutions, # 1 each, Refills 1, Tot. Refills 1, Maintenance, 09/09/22 9:57:00 EDT, Aerosol, Route to Pharmacy Electronically, [id number], [facility]/pharmacy #0373, 160.02, cm, 08/26/22 15... Start Date: [...] Personnel Name: Igor NOGUEIRA, Vicky Murrieta Position: [facility] Associate Professional Member Role: Primary Care Nurse Address: Address: [address] [place] [id number]- Name: Parvin Salomon MD Position: [facility] DRIVER LICENSE TECHNICIAN MD Member Role: Lifetime DRIVER LICENSE TECHNICIAN Physician Address: Address: [address] [place] [address] [facility], [place] [address]- Name: Alysha Naranjo NP Position: [facility] PCO Associate Professional Member Role: PCP Address: Address: [address] [place] [address] [place] [address]- Care Team Related Persons Name: NEL GARCIA Address: home [address] [facility] [place] [address] Name: SUNNY BUTT Address: home [address] [place] [address] Name: MEGGAN MCKEON Address: home [address] [place] [address] Name: CHELA SHAHID Address: home [address] [facility] [place] [address]
--- OUTSIDE RECORDS SUMMARY | 2024-04-22 09:23 | XMS_ITS | Continuity of Care Document ---
Author Organization [facility] Address [address], [address] [place] [address]- Care Team Providers Care Mower Sharpener Name Role Phone Olga CANDELARIO, Harish Rivera Primary Care Physician [facility] Date(s): 07/28/21 - 08/27/21 [facility] Sriram Tolentinos [facility] [address], [address] [place] [address]- Allergies, Adverse Reactions, Alerts Substance Reaction Severity Status Cats Active Dust Active Other Environmental Allergy Maple, [place], [place], Pollen Active Grass Active Latex hives/rash Active [...] Comment: 2nd one 2Admin Note: at work [employer] 3Admin Note: VIS GIVEN FLULAVAL 4Admin Note: GIVEN BY DG 5Admin Note: [employer] [facility] Medications albuterol 0.083% inhalation solution 3 mL [...] 0 Refills, Soft Stop, 06/22/21 11:41:00 EDT, Tablet,[facility] #[id number], Partial fill upon patient request if the prescription is for a schedule II opioid drug., 160.02, cm, 05/04/21 8:34:00 EDT, Height,... Start Date: 06/22/21 Status: Ordered Diflucan 150 mg oral tablet See Instructions, 1 tablet By Mouth Once, # 2 tablet, 0 Refills, Soft Stop, 05/13/21 15:32:00 EDT, Tablet, [facility]/pharmacy #[id number], take 1 tablet by mouth, if symptoms [...]
--- OUTSIDE RECORDS SUMMARY | 2024-04-22 09:23 | XMS_ITS | Continuity of Care Document ---
Author Organization [facility] Address [address] [place] [address]- Care Team Providers Care Natural Resource Specialist Name Role Phone Alysha Naranjo NP Primary Care Physician [place] [facility] [place]18/22 - 09/17/22 [facility] [address] [place] [address]- Allergies, Adverse Reactions, Alerts Substance Reaction Severity Status amoxicillin Active Cats Active Dust Active Grass Active Latex hives/rash Active Other Environmental Allergy Maple, [place], [place], Pollen Active Immunizations Given and Recorded Vaccine [...] (DT) 11/14/04 Given 1Admin Note: at work [employer] 2Admin Note: VIS GIVEN FLULAVAL 3Result Comment: 2nd one 4Admin Note: GIVEN BY DG 5Admin Note: [employer] [facility] Medications Albuterol (Eqv-ProAir HFA) 90 mcg/inh inhalation aerosol See Instructions, INHALE 2 PUFFS EVERY 4 HOURS NEEDED FOR WHEEZING, # 25.5 Unknown, 0 Refills, [facility], 90, INHALE 2 PUFFS EVERY 4 HOURS [...] 1 Refills, Maintenance, 01/11/22 13:40:00 EST, Solution, [facility]/pharmacy #[id number], Partial fill upon patient [...] 08/26/22 16:25:00 EDT, Route to Pharmacy Electronically, [facility]/pharmacy #[id number], Partial fill upon patient request if the prescription is for a schedule... Start Date: 08/26/22 Stop Date: 02/22/23 Status: Ordered Symbicort 160mcg/4.5mcg Inhaler 2, puffs, Inhalation, 2 times a day, no substitutions, # 1 each, Refills 1, Tot. Refills 1, Maintenance, 09/09/22 9:57:00 EDT, Aerosol, Route to Pharmacy Electronically, [id number], [facility]/pharmacy #0373, 160.02, cm, 08/26/22 15... [...] Personnel Name: Alysha Naranjo NP Address: Address: [address] [place] [address] Gastroenterology [place], [place] [address]
--- OUTSIDE RECORDS SUMMARY | 2024-04-22 09:23 | XMS_ITS | Continuity of Care Document ---
Author Organization [facility] Address [address] [place] [address]- Care Team Providers Care Cork Insulation Setter Name Role Phone Khang COPING MACHINE OPERATOR, Karina Goode Primary Care Physician ( [phone] [place] [facility] [place] 12/03/19 [facility] Adult [address] [place] [address]- [facility] Encounter Diagnosis Viral URI(Discharge Diagnosis) - 11/26/19 Attending Physician: Angelique Triana NP Allergies, Adverse Reactions, Alerts Substance Reaction Severity Status Cats Active Dust Active Grass Active Latex hives/rash Active Other Environmental Allergy [place], [place], [place], Pollen Active Immunizations Given and Recorded Vaccine [...] (DT) 11/14/04 Given 1Admin Note: at work [employer] [facility] 2Admin Note: VIS GIVEN FLULAVAL 3Admin Note: GIVEN BY DG 4Admin Note: [employer] [facility] Medications Flovent HFA 110 [...] 8:50:00 EST, Aerosol, Route to Pharmacy Electronically, [id number], [facility]/pharmacy #[id number], 160.02, cm, 11/26/19 8:32:00 EST, [...] Dates Health Status Clini mc Service Informant Viral URI Discharge Diagnosis 11/26/19 Vital Signs Most recent to oldest [Reference Range]: 1 Height 160.02 cm (11/26/19 8:32 AM) Weight 77.5 kg (11/26/19 8:32 AM) Oxygen Saturation [94-100 %] 99 % (11/26/19 8:32 AM) Pulse Rate [55-90 bpm] 64 bpm (11/26/19 8:32 AM) Body Mass Index [18.5-24.99] 30.27 *>HHI* (11/26/19 8:32 AM) Blood Pressure [90-138/55-84 mm Hg] 118/ 80mm Hg (1/13/20 8:32 AM) Temperature [96.8-100.4 DegF] 97.8 DegF (11/26/19 8:32 AM) Blood pressure sites Arm, right (11/26/19 8:32 AM) Temperature Route Oral (11/26/19 8:32 AM) Social History Social History Type Response Smoking Status Former smoker entered on: 05/23/15 Sex
--- OUTSIDE RECORDS SUMMARY | 2024-04-22 09:23 | XMS_ITS | Continuity of Care Document ---
Author Organization [facility] Address [address] [place] [address]- Care Team Providers Care Numerical Tool Programmer Name Role Phone Jose A NOGUEIRA, Alysha Hdez Primary Care Physician Encounter [facility] Date(s): 06/24/22 - 07/24/22 [facility] [address] [place] [address]- Allergies, Adverse Reactions, Alerts Substance Reaction Severity Status amoxicillin Active Cats Active Dust Active Grass Active Latex hives/rash Active Other Environmental Allergy Maple, [place], [place], Pollen Active Immunizations Given and Recorded Vaccine [...] (DT) 11/14/04 Given 1Admin Note: at work [employer] 2Admin Note: VIS GIVEN FLULAVAL 3Result Comment: 2nd one 4Admin Note: GIVEN BY DG 5Admin Note: [facility] Medications Albuterol (Eqv-ProAir HFA) 90 mcg/inh inhalation aerosol See Instructions, INHALE 2 PUFFS EVERY 4 HOURS NEEDED FOR WHEEZING, # 25.5 Unknown, 0 Refills, [id number], 90, INHALE 2 PUFFS EVERY 4 HOURS [...] 1 Refills, Maintenance, 01/11/22 13:40:00 EST, Solution, [facility]/pharmacy #[id number], Partial fill upon patient request if the prescription is for a schedule II opioid drug., 3 mL Inhalation 4 times a day, 160.02, cm,... Start Date: 01/11/22 Status: Ordered Azithromycin 5 Day Dose Pack 250 mg oral tablet 1 pack/packet, By Mouth, Once, # 6 tablet, 0 Refills, Soft Stop, 02/15/22 13:05:00 EDT, Tablet, [facility]/pharmacy #[id number], Partial fill upon patient request if the prescription is for a schedule II opioid drug., 160.02, cm, 01/11/22 13:08:00 EST, Height, 82.... Start Date: 02/15/22 Status: Ordered cephalexin monohydrate 500 mg oral capsule 1 capsule = 500 mg, By Mouth, 3 times a day, for 10 days, # 30 capsule, 0 Refills, Acute 07/30/22 10:02:00 EDT, 07/20/22 10:02:00 EDT, Capsule, [facility]/pharmacy #[id number], Partial fill upon patient request if the prescription is for a schedule II opioid drug.... Start Date: 07/20/22 Stop Date: 07/30/22 Status: Ordered Diflucan 150 mg oral tablet 1 tablet = 150 mg, By Mouth, Once, # 1 tablet, 0 Refills, Soft Stop, 06/22/21 11:41:00 EDT, Tablet,[facility]/pharmacy #[id number], Partial fill upon patient request if the prescription is for a schedule II opioid drug., 160.02, cm, 05/04/21 8:34:00 EDT, Height,... Start Date: 06/22/21 Status: Ordered Diflucan 150 mg oral tablet 1 tablet = 150 mg, By Mouth, Once, # 1 tablet, 0 Refills, Soft Stop, 02/13/22 15:31:00 EDT, Tablet,[facility]/pharmacy #[id number], Partial fill upon patient request if the prescription is for a schedule II opioid drug., 160.02, cm, 01/11/22 13:08:00 EST, Height,... Start Date: 02/13/22 Status: Ordered Diflucan 150 mg oral tablet See Instructions, 1 tablet By Mouth Once, # 2 tablet, 0 Refills, Soft Stop, 05/13/21 15:32:00 EDT, Tablet, [facility]/pharmacy #[id number], take 1 tablet by mouth, if symptoms [...] Acute 07/30/22 12:00:00 EDT, 07/16/22 8:35:00 EDT, [facility]/pharmacy #[id number],... Start Date: 07/16/22 Stop Date: 07/30/22 [...] Personnel Name: Alysha Naranjo NP Address: [address] [place] [address]- [place]
--- OUTSIDE RECORDS SUMMARY | 2024-04-22 09:23 | XMS_ITS | Continuity of Care Document ---
Author Organization [facility] [place] Address [address] [place] [address]- Care Team Providers Care Child Welfare Director Name Role Phone Khang AMMUNITION AND EXPLOSIVES HANDLER, Karina Goode Primary Care Physician [place] [facility] [place]/20 [facility] [place] [address] [place] [address]- [facility] Attending Physician: Admtr, Ar8 Allergies, Adverse Reactions, Alerts Substance Reaction Severity Status Cats Active Dust Active Latex hives/rash Active Other Environmental Allergy Maple, [place], [place], Pollen Active Grass Active Immunizations Given and [...] 11/14/04 Given 1Admin Note: at work [facility] 2Admin Note: VIS GIVEN FLULAVAL 3Admin Note: GIVEN BY 4Admin Note: [facility] Medications Flovent HFA 110 mcg/inh inhalation [...] 8:50:00 EST, Aerosol, Route to Pharmacy Electronically, [id number], [facility]/pharmacy #[id number], 160.02, cm, 11/26/19 8:32:00 EST, He... [...]
--- OUTSIDE RECORDS SUMMARY | 2024-04-22 09:23 | XMS_ITS | Continuity of Care Document ---
Author Organization [facility] Address [address] [place] [address]- Care Team Providers Care Cigar Brander Name Role Phone Jose A NOGUEIRA, Alysha Lyons Primary Care Physician [place] [facility] [place] 08/19/22 [facility] [address] [place] [address]- Attending Physician: Admjames, Anthony Admitting Physician: Admtr, [id number] Referring Physician: Admtr, Ar8 Allergies, Adverse Reactions, Alerts Substance Reaction Severity Status amoxicillin Active Cats Active Latex hives/rash Active Other Environmental Allergy Maple, [place], [place], Pollen Active Dust Active Grass Active Immunizations [...] (DT) 11/14/04 Given 1Admin Note: at work [employer] 2Admin Note: VIS GIVEN FLULAVAL 3Result Comment: 2nd one 4Admin Note: GIVEN BY DG 5Admin Note: [employer] [facility] Medications Albuterol (Eqv-ProAir HFA) 90 mcg/inh inhalation aerosol See Instructions, INHALE 2 PUFFS EVERY 4 HOURS NEEDED FOR WHEEZING, # 25.5 Unknown, 0 Refills, [facility], 90, INHALE 2 PUFFS EVERY 4 HOURS NEEDED FOR WHEEZING, 160.02, cm, 05/06/22 15:43:00 EDT, Height, 82.6, kg, 08/06/21 16:12:00 EDT, Dry... Start Date: 06/23/22 Status: Ordered albuterol 0.083% inhalation solution 3 mL = 2.5 mg, Inhalation, Every 6 hours, PRN for wheezing/shortness of breath, # 60 each, 2 Refills, Maintenance, 10/28/20 9:59:00 EST, Solution, [facility]/pharmacy #[id number], Partial fill upon patient request if the prescription is for a schedule II opioid dr... Start Date: 10/28/20 Status: Ordered albuterol-ipratropium 3 mg-0.5 mg/3 ml inhalation solution 3 mL, Inhalation, 4 times a day, # 90 mL, 1 Refills, Maintenance, 01/11/22 13:40:00 EST, Solution, [facility]/pharmacy #[id number], Partial fill upon patient request if the prescription is for a schedule II opioid drug., 3 mL Inhalation 4 times a day, 160.02, cm,... Start Date: 01/11/22 Status: Ordered Azithromycin 5 Day Dose Pack 250 mg oral tablet 1 pack/packet, By Mouth, Once, # 6 tablet, 0 Refills, Soft Stop, 02/15/22 13:05:00 EDT, Tablet, [facility]/pharmacy #[id number], Partial fill upon patient request if the prescription is for a schedule II opioid drug., 160.02, cm, 01/11/22 13:08:00 EST, Height, 82.... Start Date: 02/15/22 Status: Ordered Diflucan 150 mg oral tablet 1 tablet = 150 mg, By Mouth, Once, # 1 tablet, 0 Refills, Soft Stop, 06/22/21 11:41:00 EDT, Tablet,[facility]/pharmacy #[id number], Partial fill upon patient request if the prescription is for a schedule II opioid drug., 160.02, cm, 05/04/21 8:34:00 EDT, Height,... Start Date: 06/22/21 Status: Ordered Diflucan 150 mg oral tablet 1 tablet = 150 mg, By Mouth, Once, # 1 tablet, 0 Refills, Soft Stop, 02/13/22 15:31:00 EDT, Tablet,[facility]/pharmacy #[id number], Partial fill upon patient request if the prescription is for a schedule II opioid drug., 160.02, cm, 01/11/22 13:08:00 EST, Height,... Start Date: 02/13/22 Status: Ordered Diflucan 150 mg oral tablet See Instructions, 1 tablet By Mouth Once, # 2 tablet, 0 Refills, Soft Stop, 05/13/21 15:32:00 EDT, Tablet, [facility]/pharmacy #[id number], take 1 tablet by mouth, if symptoms [...] Personnel Name: Alysha Naranjo NP Address: Address: [address] [place] [address] [place], [place] [address]
--- OUTSIDE RECORDS SUMMARY | 2024-04-22 09:23 | XMS_ITS | Continuity of Care Document ---
Author Organization [facility] Address [address] [place] [address]- Care Team Providers Care Grape Crusher Name Role Phone Jose A NOGUEIRA, Alysha Lyons Primary Care Physician Encounter [facility] [place] Date(s): 07/23/22 - 08/22/22 [facility] [address] [place] [address]- Allergies, Adverse Reactions, Alerts Substance Reaction Severity Status amoxicillin Active Cats Active Dust Active Grass Active Latex hives/rash Active Other Environmental Allergy Maple, [place], [place], Pollen Active Immunizations Given and Recorded Vaccine [...] (DT) 11/14/04 Given 1Admin Note: at work [employer] 2Admin Note: VIS GIVEN FLULAVAL 3Result Comment: 2nd one 4Admin Note: GIVEN BY 5Admin Note: [employer] [facility] Medications Albuterol (Eqv-ProAir HFA) 90 mcg/inh inhalation aerosol See Instructions, INHALE 2 PUFFS EVERY 4 HOURS NEEDED FOR WHEEZING, # 25.5 Unknown, 0 Refills, [facility], 90, INHALE 2 PUFFS EVERY 4 HOURS NEEDED FOR WHEEZING, 160.02, cm, 05/06/22 15:43:00 EDT, Height, 82.6, kg, 08/06/21 16:12:00 EDT, Dry... Start Date: 06/23/22 Status: Ordered albuterol 0.083% inhalation solution 3 mL = 2.5 mg, Inhalation, Every 6 hours, PRN for wheezing/shortness of breath, # 60 each, 2 Refills, Maintenance, 10/28/20 9:59:00 EST, Solution, [facility]/pharmacy #[id number], Partial fill upon patient request if the prescription is for a schedule II opioid dr... Start Date: 10/28/20 Status: Ordered albuterol-ipratropium 3 mg-0.5 mg/3 ml inhalation solution 3 mL, Inhalation, 4 times a day, # 90 mL, 1 Refills, Maintenance, 01/11/22 13:40:00 EST, Solution, [facility]/pharmacy #[id number], Partial fill upon patient request if the prescription is for a schedule II opioid drug., 3 mL Inhalation 4 times a day, 160.02, cm,... Start Date: 01/11/22 Status: Ordered Azithromycin 5 Day Dose Pack 250 mg oral tablet 1 pack/packet, By Mouth, Once, # 6 tablet, 0 Refills, Soft Stop, 02/15/22 13:05:00 EDT, Tablet, [facility]/pharmacy #[id number], Partial fill upon patient request if the prescription is for a schedule II opioid drug., 160.02, cm, 01/11/22 13:08:00 EST, Height, 82.... Start Date: 02/15/22 Status: Ordered Diflucan 150 mg oral tablet 1 tablet = 150 mg, By Mouth, Once, # 1 tablet, 0 Refills, Soft Stop, 06/22/21 11:41:00 EDT, Tablet,[facility]/pharmacy #0373, Partial fill upon patient request if the prescription is for a schedule II opioid drug., 160.02, cm, 05/04/21 8:34:00 EDT, Height,... Start Date: 06/22/21 Status: Ordered Diflucan 150 mg oral tablet 1 tablet = 150 mg, By Mouth, Once, # 1 tablet, 0 Refills, Soft Stop, 02/13/22 15:31:00 EDT, Tablet,[facility]/pharmacy #7583, Partial fill upon patient request if the prescription is for a schedule II opioid drug., 160.02, cm, 01/11/22 13:08:00 EST, Height,... Start Date: 02/13/22 Status: Ordered Diflucan 150 mg oral tablet See Instructions, 1 tablet By Mouth Once, # 2 tablet, 0 Refills, Soft Stop, 05/13/21 15:32:00 EDT, Tablet, [facility]/pharmacy #[id number], take 1 tablet by mouth, if symptoms [...] Personnel Name: Alysha Naranjo NP Address: Address: [address] [place] [address] [place], [place] [address]
--- OUTSIDE RECORDS SUMMARY | 2024-04-22 09:23 | XMS_ITS | Continuity of Care Document ---
Author Organization [facility] Address [address] [place] [address]- Care Team Providers Care Marine Plumber Name Role Phone Alysha Naranjo NP Primary Care Physician [phone] Encounter [facility] [place] Date(s): 09/06/22 - 10/06/22 [facility] [address] [place] [address]- Allergies, Adverse Reactions, Alerts Substance Reaction Severity Status amoxicillin Active Cats Active Grass Active Other Environmental Allergy Maple, [place], [place], Pollen Active Dust Active Latex hives/rash Active [...] (DT) 11/14/04 Given 1Admin Note: at work [employer] 2Admin Note: VIS GIVEN FLULAVAL 3Result Comment: 2nd one 4Admin Note: GIVEN BY DG 5Admin Note: [facility] Medications Albuterol (Eqv-ProAir HFA) 90 mcg/inh inhalation aerosol See Instructions, INHALE 2 PUFFS EVERY 4 HOURS NEEDED FOR WHEEZING, # 25.5 Unknown, 0 Refills, [facility], 90, INHALE 2 PUFFS EVERY 4 HOURS [...] Refills, Maintenance, 01/11/22 13:40:00 EST, Solution, [facility]/pharmacy #[id number], Partial fill upon patient request [...] 16:25:00 EDT, Route to Pharmacy Electronically, [facility]/pharmacy #[id number], Partial fill upon patient request if the prescription is for a schedule... Start Date: 08/26/22 Stop Date: 02/22/23 Status: Ordered Symbicort 160mcg/4.5mcg Inhaler 2, puffs, Inhalation, 2 times a day, no substitutions, # 1 each, Refills 1, Tot. Refills 1, Maintenance, 09/09/22 9:57:00 EDT, Aerosol, Route to Pharmacy Electronically, [id number], [facility]/pharmacy #0373, 160.02, cm, 08/26/22 15... Start [...] Team Personnel Name: Vicky Costa NP Position: [facility] Associate Professional Member Role: Primary Care Nurse Address: Address: [address] [place] [address]- Name: Parvin Salomon MD Position: [facility] CORRECTIONAL THERAPY TEACHER MD Member Role: Lifetime CORRECTIONAL THERAPY TEACHER Physician Address: Address: [address] [place] [address] [facility], [place] [address]- Name: Alysha Naranjo NP Position: [facility] PCO Associate Professional Member Role: PCP Address: Address: [address] [place] [address] [place], [place] [address] Care Team Related Persons Name: NEL GARCIA Address: home [address] [place] [address] Name: SUNNY BUTT Address: home [address] [place] [address] Name: MEGGAN MCKEON Address: home [address] [place] [address] Name: CHELA SHAHID Address: home [address] [facility] [place] [address]
--- OUTSIDE RECORDS SUMMARY | 2024-04-22 09:23 | XMS_ITS | Continuity of Care Document ---
Author Organization [facility] Address [address] [place] [address]- Care Team Providers Care Outpatient Receptionist Name Role Phone Alysha Naranjo NP Primary Care Physician Encounter [facility] Date(s): 06/23/22 - 06/30/22 [facility] [address] [place] [address]- Encounter Diagnosis Hair loss(Discharge Diagnosis) - 06/23/22 Arthralgia of hand(Discharge Diagnosis) - 06/23/22 Anxiety(Discharge Diagnosis) - 06/23/22 Attending Physician: Tyler Eisenberg MD Referring Physician: Alysha Naranjo NP Allergies, Adverse Reactions, Alerts Substance Reaction Severity Status amoxicillin Active Cats Active Dust Active Other Environmental Allergy Maple, [place], [place], Pollen Active Grass Active Latex hives/rash Active [...] (DT) 11/14/04 Given 1Admin Note: at work [facility] 2Admin Note: VIS GIVEN FLULAVAL 3Result Comment: 2nd one 4Admin Note: GIVEN BY DG 5Admin Note: [facility] Medications Albuterol (Eqv-ProAir HFA) 90 mcg/inh inhalation aerosol See Instructions, INHALE 2 PUFFS EVERY 4 HOURS NEEDED FOR WHEEZING, # 25.5 Unknown, 0 Refills, [facility], 90, INHALE 2 PUFFS EVERY 4 HOURS [...] 0 Refills, Soft Stop, 06/22/21 11:41:00 EDT, Tablet,[facility]/pharmacy #[id number], Partial fill upon patient request if the prescription is for a schedule II opioid drug., 160.02, cm, 05/04/21 8:34:00 EDT, Height,... Start Date: 06/22/21 Status: Ordered Diflucan 150 mg oral tablet 1 tablet = 150 mg, By Mouth, Once, # 1 tablet, 0 Refills, Soft Stop, 02/13/22 15:31:00 EDT, Tablet,[facility]/pharmacy #[id number], Partial fill upon patient request if the prescription is for a schedule II opioid drug., 160.02, cm, 01/11/22 13:08:00 EST, Height,... Start Date: 02/13/22 Status: Ordered Diflucan 150 mg oral tablet See Instructions, 1 tablet By Mouth Once, # 2 tablet, 0 Refills, Soft Stop, 05/13/21 15:32:00 EDT, Tablet, [facility]/pharmacy #[id number], take 1 tablet by mouth, if [...] Effective Dates Health Status Clinical Service Informant Hair loss Discharge Diagnosis 06/23/22 Arthralgia of hand Discharge Diagnosis 06/23/22 Anxiety Discharge Diagnosis 06/23/22 Vital Signs Most recent to oldest [Reference Range]: 1 Height 160.02 cm (06/23/22 9:48 AM) Oxygen Saturation [94-100 %] 98 % (06/23/22 9:48 AM) Pulse Rate [55-90 bpm] 71 bpm (06/23/22 9:48 AM) Blood Pressure [90-138/55-84 mm Hg] 110/ 70mm Hg (06/23/22 9:48 AM) Blood pressure sites Arm, right (06/23/22 9:48 AM) Social History Social History Type Response Smoking Status Former smoker entered on: 05/23/15 Sex
--- OUTSIDE RECORDS SUMMARY | 2024-04-22 09:23 | XMS_ITS | Continuity of Care Document ---
Author Organization [facility] Address [address] [place] [address]- Care Team Providers Care Pipe Stripper Name Role Phone Khang LABORER SAWMILL, Karina Goode Primary Care Physician Encounter [facility] [place] Date(s): 11/19/19 - 11/26/19 [facility] [address] [place] [address]- [facility] Encounter Diagnosis PTSD (post-traumatic stress disorder)(Discharge Diagnosis) - 11/19/19 History of pneumonia(Discharge Diagnosis) - 11/19/19 Anxiety(Discharge Diagnosis) - 11/19/19 Palpitations(Discharge Diagnosis) - 11/19/19 Attending Physician: lOga CANDELARIO, Harish Rivera Allergies, Adverse Reactions, Alerts Substance Reaction Severity Status Cats Active Dust Active Grass Active Latex hives/rash Active Other Environmental Allergy Maple, [place], [place], Pollen Active Immunizations Given and Recorded Vaccine [...] (DT) 11/14/04 Given 1Admin Note: at work [employer] 2Admin Note: VIS GIVEN FLULAVAL 3Admin Note: GIVEN BY DG 4Admin Note: [facility] Medications Flovent HFA 110 mcg/inh inhalation aerosol [...] 8:50:00 EST, Aerosol, Route to Pharmacy Electronically, [id number], [facility]/pharmacy #0373, 160.02, cm, 11/26/19 8:32:00 [...] Effective Dates Health Status Clinical Service Informant PTSD (post-traumatic stress disorder) Discharge Diagnosis 11/19/19 History of pneumonia Discharge Diagnosis 11/19/19 Anxiety Discharge Diagnosis 11/19/19 Palpitations Discharge Diagnosis 11/19/19 Vital Signs Most recent to oldest [Reference Range]: 1 Height 160.02 cm (11/19/19 2:38 PM) Weight 78.3 kg (11/19/19 2:38 PM) Oxygen Saturation [94-100 %] 98 % (11/19/19 2:38 PM) Pulse Rate [55-90 bpm] 64 bpm (11/19/19 2:38 PM) Body Mass Index [18.5-24.99] 30.58 *>HHI* (11/19/19 2:38 PM) Blood Pressure [90-138/55-84 mm Hg] 110/ 82mm Hg (11/19/19 2:38 PM) Respiratory Rate [16-30 br/min] 12 br/mi n *L* (11/19/19 2:38 PM) Temperature [96.8-100.4 DegF] 98.1 DegF (11/19/19 2:38 PM) Mode of Delivery (Oxygen) Room air (11/19/19 2:38 PM) Blood pressure sites Arm, left (11/19/19 2:38 PM) Temperature Route Oral (11/19/19 2:38 PM) Weight Obtained Via Standing scale (11/19/19 2:38 PM) Social History Social History Type Response Smoking Status Former smoker entered on: 05/23/15 Sex
--- OUTSIDE RECORDS SUMMARY | 2024-04-22 09:23 | XMS_ITS | Continuity of Care Document ---
Author Organization [facility] Address [address] [place] [address]- Care Team Providers Care Buttonhole Maker Hand Name Role Phone Olga CANDELARIO, Harish Rivera Primary Care Physician Encounter [facility] Date(s): 03/27/21 - 04/26/[address] [address]- Allergies, Adverse Reactions, Alerts Substance Reaction Severity Status Cats Active Dust Active Grass Active Latex hives/rash Active Other Environmental Allergy Maple, [place], [place], Pollen Active Immunizations Given and Recorded Vaccine [...] FLULAVAL 3Admin Note: GIVEN BY 4Admin Note: [facility] Medications albuterol 0.083% inhalation solution 3 mL = 2.5 mg, Inhalation, Every 6 hours, PRN for wheezing/shortness of breath, # 60 each, 2 Refills, Maintenance, 10/28/20 9:59:00 EST, [id number], Partial fill upon patient request if the prescription is for a schedule II opioid . Start Date: 10/28/20 Status: Ordered Augmentin 875 mg-125 mg oral tablet 1 tablet, By Mouth, Every 12 hours, # 14 tablet, 0 Refills, Maintenance, 03/20/21 11:28:00 EDT, [facility]/pharmacy #[id number], Partial fill upon patient [...] 03/27/21 7:49:00 EDT, Route to Pharmacy Electronically, [facility]/pharmacy [...]
--- OUTSIDE RECORDS SUMMARY | 2024-04-22 09:24 | XMS_ITS | Continuity of Care Document ---
Author Organization [facility] Address [address] [place] [address]- Care Team Providers Care Head Bone Grinder Name Role Phone Jose A NOGUEIRA, Alysha Hdez Primary Care Physician [phone] [place] [facility] [place] Date(s): 06/29/22 - 07/29/22 [facility] [address] [place] [address]- Allergies, Adverse Reactions, Alerts Substance Reaction Severity Status amoxicillin Active Cats Active Dust Active Grass Active Latex hives/rash Active Other Environmental Allergy Maple, [place], [place], Pollen Active Immunizations Given and Recorded Vaccine [...] (DT) 11/14/04 Given 1Admin Note: at work [employer] 2Admin Note: VIS GIVEN FLULAVAL 3Result Comment: 2nd one 4Admin Note: GIVEN BY DG 5Admin Note: [facility] [place] Medications Albuterol (Eqv-ProAir HFA) 90 mcg/inh inhalation aerosol See Instructions, INHALE 2 PUFFS EVERY 4 HOURS NEEDED FOR WHEEZING, # 25.5 Unknown, 0 Refills, [facility], 90, INHALE 2 PUFFS EVERY 4 HOURS [...] 1 Refills, Maintenance, 01/11/22 13:40:00 EST, Solution, [facility]/pharmacy #0373, Partial fill upon patient request [...] 0 Refills, Soft Stop, 06/22/21 11:41:00 EDT, Tablet,[facility]/pharmacy #0373, Partial fill upon patient request if the prescription is for a schedule II opioid drug., 160.02, cm, 05/04/21 8:34:00 EDT, Height,... Start Date: 06/22/21 Status: Ordered Diflucan 150 mg oral tablet 1 tablet = 150 mg, By Mouth, Once, # 1 tablet, 0 Refills, Soft Stop, 02/13/22 15:31:00 EDT, Tablet,[facility]/pharmacy #0373, Partial fill upon patient request if the prescription is for a schedule II opioid drug., 160.02, cm, 01/11/22 13:08:00 EST, Height,... Start Date: 02/13/22 Status: Ordered Diflucan 150 mg oral tablet See Instructions, 1 tablet By Mouth Once, # 2 tablet, 0 Refills, Soft Stop, 05/13/21 15:32:00 EDT, Tablet, [facility]/pharmacy #[id number], take 1 tablet by mouth, if symptoms [...] Acute 07/30/22 12:00:00 EDT, 07/16/22 8:35:00 EDT, [facility]/pharmacy #[id number],... Start Date: 07/16/22 Stop Date: 07/30/22 [...] Personnel Name: Alysha Naranjo NP Address: [address] [place], [place] [address]
--- OUTSIDE RECORDS SUMMARY | 2024-04-22 09:24 | XMS_ITS | Continuity of Care Document ---
Author Organization [facility] Address [address] [place] [address]- Care Team Providers Care Meat Apprentice Name Role Phone Todd Quiroga DO Primary Care Physician [phone] [facility]counter [facility] Date[facility] 11[facility]18[facility]23 - 12/18/23 [facility] [address] [place] [address]- Allergies, Adverse Reactions, Alerts Substance Reaction Severity Status amoxicillin Active Cats Active Latex hives/rash Active Other Environmental Allergy Maple, [place], [place], Pollen Active Dust Active Grass Active Immunizations Given and Recorded Vaccine Date Status Refusal Reason SARS-CoV-2(COVID-19)mRNA-LNP vac(ayc015) 10/09/23 Recorded tetanus/diphtheria/pertussis, acel(Tdap) 07/04/23 Recorded tetanus/diphtheria/pertussis, [...] (DT) 11/14/04 Given 1Admin Note: at work [employer] 2Admin Note: VIS GIVEN FLULAVAL 3Result Comment: 2nd one 4Admin Note: GIVEN BY 5Admin Note: [employer] [facility] Medications Albuterol (Eqv-ProAir HFA) 90 mcg/inh inhalation [...] Gm, 3 Refills, Maintenance, 07/28/23 12:24:00 EDT, [facility]/pharmacy #[id number], Partial fill upon patient request if the prescription is for a schedule II opioid drug., 2 puffs Inhalat... Start Date: 07/28/23 Status: Ordered Singulair 10 mg oral tablet 10 mg, 1, tablet, By Mouth, Daily before dinner, # 30 tablet, Refills 5, Tot. Refills 5, Maintenance, 08/26/22 16:25:00 EDT, Route to Pharmacy Electronically, [facility]/pharmacy #[id number], Partial fill upon patient [...] Personnel Name: Igor NOGUEIRA, Vicky Murrieta Position: [facility] Associate Professional Member Role: Primary Care Nurse Address: Address: [address] [place] [address]- Name: Parvin Salomon MD Position: [facility] CRM TECHNICAL LEAD MD Member Role: [employer] CRM TECHNICAL LEAD Physician Address: Address: [address] [place] [address] [address] [place] [address] [address]- [place] Name: Todd Quiroga DO Position: [facility] Physician - Primary Care Member Role: PCP Address: Address: [address] [place] [address]- [place] Care Team Related Persons Name: NEL GARCIA Address: home [address] [place] [address] Name: SUNNY BUTT Address: home [address] [place] [address] Name: MEGGAN MCKEON Address: home [address] [place] [address] Name: CHELA SHAHID Address: home [address] [place] [address]
--- OUTSIDE RECORDS SUMMARY | 2024-04-22 09:24 | XMS_ITS | Continuity of Care Document ---
Author Organization [facility] Address [address] [place] [address]- Care Team Providers Care Tractor Trailer Driver Name Role Phone Angelique Triana NP Primary Care Physician Encounter [facility] Date(s): 10/03/20 - 11/02/20 [facility] Adult [address] [place] [address]- Allergies, Adverse Reactions, Alerts Substance Reaction Severity Status Cats Active Dust Active Grass Active Latex hives/rash Active Other Environmental Allergy Maple, [place], [place], Pollen Active Immunizations Given and Recorded Vaccine [...] (DT) 11/14/04 Given 1Admin Note: at work [facility] 2Admin Note: VIS GIVEN FLULAVAL 3Admin Note: GIVEN BY 4Admin Note: [facility] Medications albuterol 0.083% inhalation solution 3 mL = 2.5 mg, Inhalation, Every 6 hours, PRN for wheezing/shortness of breath, # 60 each, 2 Refills, Maintenance, 10/28/20 9:59:00 EST, Solution, [id number], Partial fill upon patient request if the [...] 16:14:00 EDT, Aerosol, Route to Pharmacy Electronically, [id number], [facility]/pharmacy #[id number], 160.02, cm, 11/26/19 8:32:00 EST, H... Start Date: 06/13/20 Status: Ordered Symbicort 160mcg/4.5mcg Inhaler 2, puffs, Inhalation, 2 times a day, # 1 each, Refills 3, Tot. Refills 3, Maintenance, 10/28/20 9:59:00 EST, Aerosol, Route to Pharmacy Electronically, [id number], [facility]/pharmacy #[id number], 160.02, cm, 10/28/20 9:24:00 EST, Height,... Start Date: 10/28/20 Status: Ordered ZyrTEC 10 mg oral tablet [...]
--- OUTSIDE RECORDS SUMMARY | 2024-04-22 09:24 | XMS_ITS | Continuity of Care Document ---
Author Organization [facility] Address [address] [place] [address]- Care Team Providers Care Furniture Reproducer Name Role Phone Angelique Triana NP Primary Care Physician [place] [facility] Date(s): 11/04/20 - 12/04/20 [facility] Adult [address] [place] [address]- Allergies, Adverse Reactions, Alerts Substance Reaction Severity Status Cats Active Dust Active Grass Active Latex hives/rash Active Other Environmental Allergy Maple, [place], [place], Pollen Active Immunizations Given and Recorded Vaccine [...] (DT) 11/14/04 Given 1Admin Note: at work [facility] 2Admin Note: VIS GIVEN FLULAVAL 3Admin Note: GIVEN BY 4Admin Note: [employer] Medications albuterol 0.083% inhalation solution 3 mL = 2.5 mg, Inhalation, Every 6 hours, PRN for wheezing/shortness of breath, # 60 each, 2 Refills, Maintenance, 10/28/20 9:59:00 EST, [facility], [id number], Partial fill upon patient request if the [...] 16:14:00 EDT, Aerosol, Route to Pharmacy Electronically, [id number], [facility]/pharmacy #[id number], 160.02, cm, 11/26/19 8:32:00 EST, H... Start Date: 06/13/20 Status: Ordered Symbicort 160mcg/4.5mcg Inhaler 2, puffs, Inhalation, 2 times a day, # 1 each, Refills 3, Tot. Refills 3, Maintenance, 11/20/20 16:56:00 EST, Aerosol, Route to Pharmacy Electronically, [id number], [facility]/pharmacy #[id number], 160.02, cm, 10/28/20 9:24:00 EST, Height... [...]
--- OUTSIDE RECORDS SUMMARY | 2024-04-22 09:24 | XMS_ITS | Continuity of Care Document ---
Author Organization [facility] Address [address] [place] [address]- Care Team Providers Care Cloth Trimmer Hand Name Role Phone Jose A NOGUEIRA, Alysha Hdez Primary Care Physician [facility] Date(s): 05/06/22 - 06/05/22 [facility] Adult [address] [place] [address]- Allergies, Adverse Reactions, Alerts Substance Reaction Severity Status amoxicillin Active Cats Active Dust Active Grass Active Latex hives/rash Active Other Environmental Allergy Maple, [place], [place], Pollen Active Immunizations Given and Recorded Vaccine [...] (DT) 11/14/04 Given 1Admin Note: at work [employer] [facility] 2Admin Note: VIS GIVEN FLULAVAL 3Result Comment: 2nd one 4Admin Note: GIVEN BY 5Admin Note: [facility] Medications albuterol 0.083% inhalation solution 3 mL = 2.5 mg, Inhalation, Every 6 hours, PRN for wheezing/shortness of breath, # 60 each, 2 Refills, Maintenance, 10/28/20 9:59:00 EST, Solution, [facility]/pharmacy #[id number], Partial [...] Refills, Soft Stop, 02/15/22 13:05:00 EDT, Tablet, [facility]/pharmacy #[id number], Partial fill upon patient request if the prescription is for a schedule II opioid drug., 160.02, cm, 01/11/22 13:08:00 EST, Height, 82.... Start Date: 02/15/22 Status: Ordered Diflucan 150 mg oral tablet 1 tablet = 150 mg, By Mouth, Once, # 1 tablet, 0 Refills, Soft Stop, 06/22/21 11:41:00 EDT, Tablet,[facility]/pharmacy #[id number], Partial fill upon patient request if the prescription is for a schedule II opioid drug., 160.02, cm, 05/04/21 8:34:00 EDT, Height,... Start Date: 06/22/21 Status: Ordered Diflucan 150 mg oral tablet 1 tablet = 150 mg, By Mouth, Once, # 1 tablet, 0 Refills, Soft Stop, 02/13/22 15:31:00 EDT, Tablet,[facility]/pharmacy #[id number], Partial fill upon patient request if the prescription is for a schedule II opioid drug., 160.02, cm, 01/11/22 13:08:00 EST, Height,... Start Date: 02/13/22 Status: Ordered Diflucan 150 mg oral tablet See Instructions, 1 tablet By Mouth Once, # 2 tablet, 0 Refills, Soft Stop, 05/13/21 15:32:00 EDT, Tablet, [facility]/pharmacy #[id number], take 1 tablet by mouth, if symptoms [...]
--- OUTSIDE RECORDS SUMMARY | 2024-04-22 09:24 | XMS_ITS | Continuity of Care Document ---
Author Organization [facility] Address [address] [place] [address]- Care Team Providers Care Rag Sorter Name Role Phone Angelique Triana NP Primary Care Physician [phone] Encounter [facility] Date(s): 11/20/20 - 12/20/20 [facility] Adult [address] [place] [address]- Allergies, Adverse Reactions, Alerts Substance Reaction Severity Status Cats Active Dust Active Grass Active Latex hives/rash Active Other Environmental Allergy Maple, [place], [place], Pollen Active Immunizations Given and Recorded Vaccine [...] (DT) 11/14/04 Given 1Admin Note: at work [facility] 2Admin Note: VIS GIVEN FLULAVAL 3Admin Note: GIVEN BY 4Admin Note: [facility] [facility] Medications albuterol 0.083% inhalation solution 3 mL = 2.5 mg, Inhalation, Every 6 hours, PRN for wheezing/shortness of breath, # 60 each, 2 Refills, Maintenance, 10/28/20 9:59:00 EST, [facility], [id number], Partial fill upon patient request if the [...] 16:14:00 EDT, Aerosol, Route to Pharmacy Electronically, [id number], [facility]/pharmacy #0373, 160.02, cm, 11/26/19 8:32:00 EST, H... Start Date: 06/13/20 Status: Ordered Symbicort 160mcg/4.5mcg Inhaler 2, puffs, Inhalation, 2 times a day, # 1 each, Refills 3, Tot. Refills 3, Maintenance, 11/20/20 16:56:00 EST, Aerosol, Route to Pharmacy Electronically, [id number], [facility]/pharmacy #0373, 160.02, cm, 10/28/20 9:24:00 EST, [...]
--- OUTSIDE RECORDS SUMMARY | 2024-04-22 09:24 | XMS_ITS | Continuity of Care Document ---
Author Organization [facility] Delta [facility] Address [address] [place] [address]- Care Team Providers Care Nanotechnology Engineering Technologist Name Role Phone Olga CANDELARIO, Harish Rivera Primary Care Physician [facility] Date(s): 05/04/21 - 06/03/21 [facility] Adult [address] [place] [address]- Allergies, Adverse Reactions, Alerts Substance Reaction Severity Status Cats Active Dust Active Grass Active Latex hives/rash Active Other Environmental Allergy Maple, [place], [place], Pollen Active Immunizations Given and Recorded Vaccine [...] 2nd one 2Admin Note: at work [employer] 3Admin Note: VIS GIVEN FLULAVAL 4Admin Note: GIVEN BY DG 5Admin Note: [employer] [facility] Medications albuterol 0.083% inhalation solution 3 mL = 2.5 mg, Inhalation, Every 6 hours, PRN for wheezing/shortness of breath, # 60 each, 2 Refills, Maintenance, 10/28/20 9:59:00 EST, [facility], [id number], Partial fill upon patient request if the prescription is for a schedule II opioid . Start Date: 10/28/20 Status: Ordered Diflucan 150 mg oral tablet See Instructions, 1 tablet By Mouth Once, # 2 tablet, 0 Refills, Soft Stop, 05/13/21 15:32:00 EDT, Tablet, [facility]/pharmacy #[id number], take 1 tablet by mouth, if symptoms [...]
--- OUTSIDE RECORDS SUMMARY | 2024-04-22 09:24 | XMS_ITS | Continuity of Care Document ---
Author Organization [facility] Delta lt Address [address] [place] [address]- Care Team Providers Care Network Engineer Name Role Phone Khang TRANSMITTER ENGINEER, Karina Goode Primary Care Physician Encounter [facility] Date(s): 06/11/20 - 07/11/20 [facility] Adult [address] [place] [address]- [facility] Allergies, Adverse Reactions, Alerts Substance Reaction Severity Status Cats Active Dust Active Grass Active Latex hives/rash Active Other Environmental Allergy Maple, [place], [place] [place] [employer], Pollen Active Immunizations Given and Recorded Vaccine [...] (DT) 11/14/04 Given 1Admin Note: at work [employer] [facility] 2Admin Note: VIS GIVEN FLULAVAL 3Admin Note: GIVEN BY DG 4Admin Note: [employer] [facility] Medications Flovent HFA 110 mcg/inh inhalation aerosol [...] 16:14:00 EDT, Aerosol, Route to Pharmacy Electronically, [id number], [facility]/pharmacy #[id number], 160.02, cm, 11/26/19 8:32:00 EST, [...]
--- OUTSIDE RECORDS SUMMARY | 2024-04-22 09:24 | XMS_ITS | Continuity of Care Document ---
Author Organization [facility] Address [address] [place] [address]- Care Team Providers Care Time Study Statistician Name Role Phone Jose A NOGUEIRA, Alysha Hdez Primary Care Physician Encounter [facility] Date(s): 07/07/22 - 08/06/22 [facility] [address] [place] [address]- Allergies, Adverse Reactions, Alerts Substance Reaction Severity Status amoxicillin Active Cats Active Dust Active Grass Active Latex hives/rash Active Other Environmental Allergy Maple, [place], [place], Pollen Active Immunizations Given and Recorded Vaccine Date Status Refusal Reason influenza virus vaccine, inactivated 08/27/21 Juan rded influenza virus vaccine, inactivated 08/17/20 Juan rded influenza virus vaccine, inactivated 09/06/19 Give n influenza virus vaccine, inactivated 08/21/14 Give n influenza virus vaccine, inactivated 1 08/14/13 Gi aneglica influenza virus vaccine, inactivated 2 08/07/12 Gi angelica SARS-CoV-2 (COVID-19) mRNA-1273 vaccine 3 12/15/20 Recorded SARS-CoV-2 (COVID-19) mRNA-1273 vaccine 12/15/20 R ecorded tetanus/diphtheria/pertussis, acel(Tdap) 05/23/15 Given FluLaval (oldterm) 4 10/12/11 Given FluLaval (oldterm) 5 08/20/09 Given diphtheria-tetanus toxoids (DT) 11/14/04 Given 1Admin Note: at work [employer] 2Admin Note: VIS GIVEN FLULAVAL 3Result Comment: 2nd one 4Admin Note: GIVEN BY DG 5Admin Note: [facility] Medications Albuterol (Eqv-ProAir HFA) 90 mcg/inh inhalation aerosol See Instructions, INHALE 2 PUFFS EVERY 4 HOURS NEEDED FOR WHEEZING, # 25.5 Unknown, 0 Refills, [id number], 90, INHALE 2 PUFFS EVERY 4 HOURS [...] Refills, Maintenance, 01/11/22 13:40:00 EST, Solution, [facility]/pharmacy #[id number], Partial fill upon patient request if the prescription is for a schedule II opioid drug., 3 mL Inhalation 4 times a day, 160.02, cm,... Start Date: 01/11/22 Status: Ordered Azithromycin 5 Day Dose Pack 250 mg oral tablet 1 pack/packet, By Mouth, Once, # 6 tablet, 0 Refills, Soft Stop, 02/15/22 13:05:00 EDT, Tablet, [facility]/pharmacy #0373, Partial fill upon patient request if the prescription is for a schedule II opioid drug., 160.02, cm, 01/11/22 13:08:00 EST, Height, 82.... Start Date: 02/15/22 Status: Ordered Diflucan 150 mg oral tablet 1 tablet = 150 mg, By Mouth, Once, # 1 tablet, 0 Refills, Soft Stop, 06/22/21 11:41:00 EDT, Tablet,[facility]/pharmacy #[id number], Partial fill upon patient request if the prescription is for a schedule II opioid drug., 160.02, cm, 05/04/21 8:34:00 EDT, Height,... Start Date: 06/22/21 Status: Ordered Diflucan 150 mg oral tablet 1 tablet = 150 mg, By Mouth, Once, # 1 tablet, 0 Refills, Soft Stop, 02/13/22 15:31:00 EDT, Tablet,[facility]/pharmacy #0373, Partial fill upon patient request if the prescription is for a schedule II opioid drug., 160.02, cm, 01/11/22 13:08:00 EST, Height,... Start Date: 02/13/22 Status: Ordered Diflucan 150 mg oral tablet See Instructions, 1 tablet By Mouth Once, # 2 tablet, 0 Refills, Soft Stop, 05/13/21 15:32:00 EDT, Tablet, [facility]/pharmacy #[id number], take 1 tablet by mouth, if symptoms [...] Personnel Name: Alysha Naranjo NP Address: [address] [place] [address]-
--- OUTSIDE RECORDS SUMMARY | 2024-04-22 09:24 | XMS_ITS | Continuity of Care Document ---
Author Organization [facility] Delta lt Address [address] [place] [address]- Care Team Providers Care Bulk Driver Name Role Phone Harish Espinoza MD Primary Care Physician [facility] Date(s): 03/20/21 - 04/19/21 [facility] Adult [address] [place] [address]- Attending Physician: Admtr, Ar8 Allergies, Adverse Reactions, Alerts Substance Reaction Severity Status Cats Active Dust Active Grass Active Latex hives/rash Active Other Environmental Allergy Maple, [place], [place], Pollen Active Immunizations Given and Recorded [...] (DT) 11/14/04 Given 1Admin Note: at work [employer] [facility] 2Admin Note: VIS GIVEN FLULAVAL 3Admin Note: GIVEN BY 4Admin Note: [employer] Medications albuterol 0.083% inhalation solution 3 mL = 2.5 mg, Inhalation, Every 6 hours, PRN for wheezing/shortness of breath, # 60 each, 2 Refills, Maintenance, 10/28/20 9:59:00 EST, [facility], [facility], Partial fill upon patient request if the prescription is for a schedule II opioid . Start Date: 10/28/20 Status: Ordered Augmentin 875 mg-125 mg oral tablet 1 tablet, By Mouth, Every 12 hours, # 14 tablet, 0 Refills, Maintenance, 03/20/21 11:28:00 EDT, [facility]/pharmacy #0373, Partial fill [...] 03/27/21 7:49:00 EDT, Route to Pharmacy Electronically, [facility]/pharmacy #[id number], Partial fill [...]
--- OUTSIDE RECORDS SUMMARY | 2024-04-22 09:24 | XMS_ITS | Continuity of Care Document ---
Author Organization [facility] Address [address] [place] [address]- Care Team Providers Care Supervisor Waterworks Name Role Phone Todd Quiroga DO Primary Care Physician [phone] [facility] [place] 12/27/22 - 01/26/23 [facility] [address] [place] [address]- Allergies, Adverse Reactions, Alerts Substance Reaction Severity Status amoxicillin Active Cats Active Dust Active Latex hives/rash Active Other Environmental Allergy Maple, [place], [place], Pollen Active Grass Active Immunizations Given and [...] (DT) 11/14/04 Given 1Admin Note: at work [employer] 2Admin Note: VIS GIVEN FLULAVAL 3Result Comment: 2nd one 4Admin Note: GIVEN BY DG 5Admin Note: [employer] [place] Medications Albuterol (Eqv-ProAir HFA) 90 mcg/inh inhalation aerosol See Instructions, INHALE 2 PUFFS EVERY 4 HOURS NEEDED FOR WHEEZING, # 25.5 Unknown, 0 Refills, [facility], 90, INHALE 2 PUFFS EVERY 4 HOURS [...] 1 Refills, Maintenance, 01/11/22 13:40:00 EST, Solution, [facility]/pharmacy #0373, Partial fill upon [...] 0 Refills, Maintenance, 12/27/22 10:39:00 EST, Tablet, [facility]/pharmacy #0373, Partial fill upon [...] 08/26/22 16:25:00 EDT, Route to Pharmacy Electronically, [facility]/pharmacy #[id number], Partial fill upon patient request if the prescription is for a schedule... Start Date: 08/26/22 Stop Date: 02/22/23 Status: Ordered Symbicort 160mcg/4.5mcg Inhaler 2, puffs, Inhalation, 2 times a day, no substitutions, # 1 each, Refills 1, Tot. Refills 1, Maintenance, 09/09/22 9:57:00 EDT, Aerosol, Route to Pharmacy Electronically, [id number], [facility]/pharmacy #0373, 160.02, cm, 08/26/22 [...] Personnel Name: Igor NOGUEIRA, Vicky Murrieta Position: [facility] Associate Professional Member Role: Primary Care Nurse Address: Address: [address] [place] [id number]- Name: Parvin Salomon MD Position: [facility] SEMICONDUCTOR PACKAGE SYMBOL STAMPER MD Member Role: [employer] SEMICONDUCTOR PACKAGE SYMBOL STAMPER Physician Address: Address: [address] [place] [address] [facility], [place] [address]- Name: Todd Quiroga DO Position: [facility] Primary Care Physician Member Role: PCP Address: Address: [address] [place] [address]- Care Team Related Persons Name: NEL GARCIA Address: home [address] [place] [address] Name: SUNNY BUTT Address: home [address] [place] [address] Name: MEGGAN MCKEON Address: home [address] [place] [address] Name: CHELA SHAHID Address: home [address] [place] [address]
--- OUTSIDE RECORDS SUMMARY | 2024-04-22 09:24 | XMS_ITS | Continuity of Care Document ---
Author Organization [facility] Delta [facility] Address [address] [place] [address]- Care Team Providers Care Apartment Coordinator Name Role Phone Harish Espinoza MD Primary Care Physician [phone] [facility](s): 05/04/21 - 05/11/21 [facility] Adult [address] [place] [address]- Encounter Diagnosis Acute sinusitis(Discharge Diagnosis) - 05/04/21 Attending Physician: Not on Staff, Attending Referring Physician: Harish Espinoza MD Allergies, Adverse Reactions, Alerts Substance Reaction Severity Status Cats Active Dust Active Grass Active Other Environmental Allergy Maple, [place], [place], Pollen Active Latex hives/rash Active Immunizations Given [...] Comment: 2nd one 2Admin Note: at work [employer] 3Admin Note: VIS GIVEN FLULAVAL 4Admin Note: GIVEN BY DG 5Admin Note: [employer] Medications albuterol 0.083% inhalation solution 3 mL = 2.5 mg, Inhalation, Every 6 hours, PRN for wheezing/shortness of breath, # 60 each, 2 Refills, Maintenance, 10/28/20 9:59:00 EST, Solution, [facility]/pharmacy #[id number], Partial fill upon patient request if the prescription is for a schedule II opioid . Start Date: 10/28/20 Status: Ordered Doterra adapt [...] inical Service Informant Acute sinusitis Discharge Diagnosis 05/04/21 Vital Signs Most recent to oldest [Reference Range]: 1 Height 160.02 cm (05/04/21 8:34 AM) Weight 77 kg (05/04/21 8:34 AM) Body Mass Index [18.5-24.99] 30.07 *>HHI* (05/04/21 8:34 AM) Social History Social History Type Response Smoking Status Former smoker entered on: 05/23/15 Sex
--- OUTSIDE RECORDS SUMMARY | 2024-04-22 09:24 | XMS_ITS | Continuity of Care Document ---
Author Organization [facility] Delta [facility] Address [address] [place] [address]- Care Team Providers Care Clearance Cutter Name Role Phone Jose A NOGUEIRA, Alysha Hdez Primary Care Physician Encounter [facility] Date(s): 10/26/21 - 11/25/21 [facility] Adult [address] [place] [address]- Allergies, Adverse Reactions, Alerts Substance Reaction Severity Status Cats Active Dust Active Latex hives/rash Active Other Environmental Allergy Maple, [place], [place], Pollen Active Grass Active Immunizations Given and [...] Comment: 2nd one 2Admin Note: at work [employer] 3Admin Note: VIS GIVEN FLULAVAL 4Admin Note: GIVEN BY DG 5Admin Note: [facility] Medications albuterol 0.083% inhalation solution [...] 05/13/21 15:32:00 EDT, Tablet, [facility]/pharmacy #5541, take 1 tablet by mouth, if [...]
--- OUTSIDE RECORDS SUMMARY | 2024-04-22 09:24 | XMS_ITS | Continuity of Care Document ---
Author Organization [facility] [employer] Address [address] [place] [address]- Care Team Providers Care Duck Operator Name Role Phone Alysha Naranjo NP Primary Care Physician Encounter [facility] Date(s): 10/08/22 - 10/15/22 [facility] [address] [place] [address]- Encounter Diagnosis Acute bronchitis with asthma(Discharge Diagnosis) - 10/08/22 Attending Physician: Marie Gasca NP Allergies, Adverse Reactions, Alerts Substance Reaction Severity Status amoxicillin Active Cats Active Dust Active Grass Active Latex hives/rash Active Other Environmental Allergy Maple, [place], [place], Pollen Active Immunizations Given and Recorded Vaccine [...] (DT) 11/14/04 Given 1Admin Note: at work [employer] 2Admin Note: VIS GIVEN FLULAVAL 3Result Comment: 2nd one 4Admin Note: GIVEN BY DG 5Admin Note: [employer] Medications Albuterol (Eqv-ProAir HFA) 90 mcg/inh inhalation aerosol See Instructions, INHALE 2 PUFFS EVERY 4 HOURS NEEDED FOR WHEEZING, # 25.5 Unknown, 0 Refills, [id number], 90, INHALE 2 PUFFS EVERY 4 HOURS [...] 10/23/22 23:00:00 EST, 10/09/22 9:08:00 EST, [facility]/pharmacy #[id number], Partial fill upon patient request i... Start Date: 10/09/22 Stop Date: 10/23/22 Status: Ordered Singulair 10 mg oral tablet 10 mg, 1, tablet, By Mouth, Daily before dinner, # 30 tablet, Refills 5, Tot. Refills 5, Maintenance, 08/26/22 16:25:00 EDT, Route to Pharmacy Electronically, [facility]/pharmacy #[id number], Partial fill upon patient request if the prescription is for a schedule... Start Date: 08/26/22 Stop Date: 02/22/23 Status: Ordered Symbicort 160mcg/4.5mcg Inhaler 2, puffs, Inhalation, 2 times a day, no substitutions, # 1 each, Refills 1, Tot. Refills 1, Maintenance, 09/09/22 9:57:00 EDT, Aerosol, Route to Pharmacy Electronically, [id number], [facility]/pharmacy #[id number], 160.02, cm, 08/26/22 15... Start Date: [...] Effective Dates Health Status Clinical Service Informant Acute bronchitis with asthma Discharge Diagnosis 10/08/22 Vital Signs Most recent to oldest [Reference Range]: 1 Height 160.02 cm (10/08/22 1:32 PM) Weight 88.1 kg (10/08/22 1:32 PM) Oxygen Saturation [94-100 %] 98 % (10/08/22 1:32 PM) Pulse Rate [55-90 bpm] 65 bpm (10/08/22 1:32 PM) Body Mass Index [18.5-24.99 kg/m2] 34.41 kg/m2 *>HHI* (10/08/22 1:32 PM) Blood Pressure [90-138/55-84 mm Hg] 139/ 93mm Hg *H* (10/08/22 1:32 PM) Respiratory Rate [16-30 br/min] 18 br/mi n (10/08/22 1:32 PM) Blood pressure sites Arm, right (10/08/22 1:32 PM) Weight Obtained Via Standing scale (10/08/22 1:32 PM) Social History Social History Type Response Smoking Status Former smoker entered on: 05/23/15 Sex Patient Care team information Care Team Personnel Name: Igor NOGUEIRA, Vicky Murrieta Position: [facility] Associate Professional Member Role: Primary Care Nurse Address: Address: [address] [place] [address]- Name: Parvin Salomon MD Position: [facility] MANDREL PRESS HAND MD Member Role: Lifetime MANDREL PRESS HAND Physician Address: Address: [address] [place] [address] [facility], [place] [address]- Name: Alysha Naranjo NP Position: [facility] PCO Associate Professional Member Role: PCP Address: Address: [address] [place] [address] [place] [address]- Care Team Related Persons Name: NEL GARCIA Address: home [address] [address] Name: SUNNY BUTT Address: home [address] [place] [address] Name: MEGGAN MCKEON Address: home [address] [place] [address] Name: CHELA SHAHID Address: home [address] [place] [address]
--- OUTSIDE RECORDS SUMMARY | 2024-04-22 09:24 | XMS_ITS | Continuity of Care Document ---
Author Organization [facility] Address [address] [place] [address]- Care Team Providers Care Machine Former Name Role Phone Jose A NOGUEIRA, Alysha Lyons Primary Care Physician Encounter [facility] Date(s): 07/13/22 - 08/12/22 [facility] [address] [place], [place] [address] Allergies, Adverse Reactions, Alerts Substance Reaction Severity Status amoxicillin Active Cats Active Dust Active Grass Active Latex hives/rash Active Other Environmental Allergy Maple, [place], [place], Pollen Active Immunizations Given and Recorded Vaccine [...] (DT) 11/14/04 Given 1Admin Note: at work [employer] [facility] [employer] 2Admin Note: VIS GIVEN FLULAVAL 3Result Comment: 2nd one 4Admin Note: GIVEN BY 5Admin Note: [facility] Medications Albuterol (Eqv-ProAir HFA) 90 mcg/inh inhalation aerosol See Instructions, INHALE 2 PUFFS EVERY 4 HOURS NEEDED FOR WHEEZING, # 25.5 Unknown, 0 Refills, [facility], 90, INHALE 2 PUFFS EVERY 4 HOURS NEEDED FOR WHEEZING, 160.02, cm, 05/06/22 15:43:00 EDT, Height, 82.6, kg, 08/06/21 16:12:00 EDT, Dry... Start Date: 06/23/22 Status: Ordered albuterol 0.083% inhalation solution 3 mL = 2.5 mg, Inhalation, Every 6 hours, PRN for wheezing/shortness of breath, # 60 each, 2 Refills, Maintenance, 10/28/20 9:59:00 EST, Solution, [facility]/pharmacy #[id number], Partial fill upon patient request if the prescription is for a schedule II opioid dr... Start Date: 10/28/20 Status: Ordered albuterol-ipratropium 3 mg-0.5 mg/3 ml inhalation solution 3 mL, Inhalation, 4 times a day, # 90 mL, 1 Refills, Maintenance, 01/11/22 13:40:00 EST, Solution, [facility]/pharmacy #[id number], Partial fill upon patient request if the prescription is for a schedule II opioid drug., 3 mL Inhalation 4 times a day, 160.02, cm,... Start Date: 01/11/22 Status: Ordered Azithromycin 5 Day Dose Pack 250 mg oral tablet 1 pack/packet, By Mouth, Once, # 6 tablet, 0 Refills, Soft Stop, 02/15/22 13:05:00 EDT, Tablet, [facility]/pharmacy #[id number], Partial fill upon patient request if the prescription is for a schedule II opioid drug., 160.02, cm, 01/11/22 13:08:00 EST, Height, 82.... Start Date: 02/15/22 Status: Ordered Diflucan 150 mg oral tablet 1 tablet = 150 mg, By Mouth, Once, # 1 tablet, 0 Refills, Soft Stop, 06/22/21 11:41:00 EDT, Tablet,[facility]/pharmacy #[id number], Partial fill upon patient request if the prescription is for a schedule II opioid drug., 160.02, cm, 05/04/21 8:34:00 EDT, Height,... Start Date: 06/22/21 Status: Ordered Diflucan 150 mg oral tablet 1 tablet = 150 mg, By Mouth, Once, # 1 tablet, 0 Refills, Soft Stop, 02/13/22 15:31:00 EDT, Tablet,[facility]/pharmacy #[id number], Partial fill upon patient request if the prescription is for a schedule II opioid drug., 160.02, cm, 01/11/22 13:08:00 EST, Height,... Start Date: 02/13/22 Status: Ordered Diflucan 150 mg oral tablet See Instructions, 1 tablet By Mouth Once, # 2 tablet, 0 Refills, Soft Stop, 05/13/21 15:32:00 EDT, Tablet, [facility]/pharmacy #[id number], take 1 tablet by mouth, if symptoms [...] Personnel Name: Alysha Naranjo NP Address: Address: [address] [place] [address] [place], [place] [address]
--- OUTSIDE RECORDS SUMMARY | 2024-04-22 09:24 | XMS_ITS | Continuity of Care Document ---
Author Organization [facility] Address [address] [place] [address]- Care Team Providers Care Fly Frame Tender Name Role Phone Jose A NOGUEIRA, Alysha Lyons Primary Care Physician Encounter [facility] Date(s): 07/20/22 - 08/19/22 [facility] [address] [place] [address]- Allergies, Adverse Reactions, Alerts Substance Reaction Severity Status amoxicillin Active Cats Active Dust Active Grass Active Latex hives/rash Active Other Environmental Allergy Maple, [place], [place], Pollen Active Immunizations Given and Recorded Vaccine [...] (DT) 11/14/04 Given 1Admin Note: at work [employer] 2Admin Note: VIS GIVEN FLULAVAL 3Result Comment: 2nd one 4Admin Note: GIVEN BY 5Admin Note: [employer] [facility] Medications Albuterol (Eqv-ProAir HFA) 90 mcg/inh inhalation aerosol See Instructions, INHALE 2 PUFFS EVERY 4 HOURS NEEDED FOR WHEEZING, # 25.5 Unknown, 0 Refills, [facility], 90, INHALE 2 PUFFS EVERY 4 HOURS NEEDED FOR WHEEZING, 160.02, cm, 05/06/22 15:43:00 EDT, Height, 82.6, kg, 08/06/21 16:12:00 EDT, Dry... Start Date: 06/23/22 Status: Ordered albuterol 0.083% inhalation solution 3 mL = 2.5 mg, Inhalation, Every 6 hours, PRN for wheezing/shortness of breath, # 60 each, 2 Refills, Maintenance, 10/28/20 9:59:00 EST, Solution, [facility]/pharmacy #[id number], Partial fill upon patient request if the prescription is for a schedule II opioid dr... Start Date: 10/28/20 Status: Ordered albuterol-ipratropium 3 mg-0.5 mg/3 ml inhalation solution 3 mL, Inhalation, 4 times a day, # 90 mL, 1 Refills, Maintenance, 01/11/22 13:40:00 EST, Solution, [facility]/pharmacy #[id number], Partial fill upon patient request if the prescription is for a schedule II opioid drug., 3 mL Inhalation 4 times a day, 160.02, cm,... Start Date: 01/11/22 Status: Ordered Azithromycin 5 Day Dose Pack 250 mg oral tablet 1 pack/packet, By Mouth, Once, # 6 tablet, 0 Refills, Soft Stop, 02/15/22 13:05:00 EDT, Tablet, [facility]/pharmacy #[id number], Partial fill upon patient request if the prescription is for a schedule II opioid drug., 160.02, cm, 01/11/22 13:08:00 EST, Height, 82.... Start Date: 02/15/22 Status: Ordered Diflucan 150 mg oral tablet 1 tablet = 150 mg, By Mouth, Once, # 1 tablet, 0 Refills, Soft Stop, 06/22/21 11:41:00 EDT, Tablet,[facility]/pharmacy #[id number], Partial fill upon patient request if the prescription is for a schedule II opioid drug., 160.02, cm, 05/04/21 8:34:00 EDT, Height,... Start Date: 06/22/21 Status: Ordered Diflucan 150 mg oral tablet 1 tablet = 150 mg, By Mouth, Once, # 1 tablet, 0 Refills, Soft Stop, 02/13/22 15:31:00 EDT, Tablet,[facility]/pharmacy #[id number], Partial fill upon patient request if the prescription is for a schedule II opioid drug., 160.02, cm, 01/11/22 13:08:00 EST, Height,... Start Date: 02/13/22 Status: Ordered Diflucan 150 mg oral tablet See Instructions, 1 tablet By Mouth Once, # 2 tablet, 0 Refills, Soft Stop, 05/13/21 15:32:00 EDT, Tablet, [facility]/pharmacy #[id number], take 1 tablet by mouth, if symptoms [...] Personnel Name: Alysha Naranjo NP Address: Address: [address] [place] [address] Gastro[place], [place] [address]
--- OUTSIDE RECORDS SUMMARY | 2024-04-22 09:24 | XMS_ITS | Continuity of Care Document ---
Author Organization [facility] Address [address] [place] [address]- Care Team Providers Care Human Resources Administrator Name Role Phone Jose A NOGUEIRA, Alysha Hdze Primary Care Physician [phone] [place] [facility] Date(s): 02/13/22 - 03/15/22 [facility] [address] [place] [address]- Attending Physician: Anthony Doty Admitting Physician: AdmAnthony ramirez Referring Physician: Admtr ArJudy Allergies, Adverse Reactions, Alerts Substance Reaction Severity Status amoxicillin Active Cats Active Other Environmental Allergy Maple, [place], [place], Pollen Active Dust Active Grass Active Latex [...] (DT) 11/14/04 Given 1Admin Note: at work [employer] [facility] 2Admin Note: VIS GIVEN FLULAVAL 3Result Comment: 2nd one 4Admin Note: GIVEN BY DG 5Admin Note: [facility] Medications albuterol 0.083% inhalation solution [...] Refills, Soft Stop, 05/13/21 15:32:00 EDT, Tablet, [facility]/pharmacy #[id number], take 1 tablet by mouth, if symptoms [...]
--- OUTSIDE RECORDS SUMMARY | 2024-04-22 09:24 | XMS_ITS | Continuity of Care Document ---
Author Organization [facility] Address [address] [place] [address]- Care Team Providers Care Change Of Address Clerk Name Role Phone Angelique Triana NP Primary Care Physician [phone] [place] [facility] [place] 09/24/20 - 10/24/20 [facility] [address] [place] [address]- Allergies, Adverse Reactions, Alerts Substance Reaction Severity Status Cats Active Dust Active Grass Active Latex hives/rash Active Other Environmental Allergy Maple, [place], [place], Pollen Active Immunizations Given and Recorded Vaccine [...] (DT) 11/14/04 Given 1Admin Note: at work [employer] 2Admin Note: VIS GIVEN FLULAVAL 3Admin Note: GIVEN BY 4Admin Note: [employer] [facility] Medications azithromycin 250 mg oral tablet 1 [...] 0 Refills, Maintenance, 09/22/20 13:28:00 EST, Aerosol, [facility]/pharmacy #[id number], 160.02, cm, 09/22/20 11:55:00 EST, Height, [...] 0 Refills, Maintenance, 09/22/20 13:28:00 EST, Tablet, [facility]/pharmacy #[id number], 160.02, cm, 09/22/20 11:55:00 EST, Height, 71.5, kg, 02/13/19 6:59:00 EDT, Dry Weight Start Date: 09/22/20 Status: Ordered ProAir HFA 90 mcg/inh inhalation aerosol with adapter 2, puffs, Inhalation, Every 4 hours, PRN, # 3 each, Refills 0, Tot. Refills 0, Maintenance, 06/13/20 16:14:00 EDT, Aerosol, Route to Pharmacy Electronically, [id number], [facility]/pharmacy #[id number], 160.02, cm, 11/26/19 8:32:00 [...]
--- OUTSIDE RECORDS SUMMARY | 2024-04-22 09:24 | XMS_ITS | Continuity of Care Document ---
Author Organization [facility] Address [address] [place] [address]- Care Team Providers Care Vice President Network Development Name Role Phone Alysha Naranjo NP Primary Care Physician Encounter [facility] [id number] Date(s): 07/20/22 - 07/27/22 [facility] [address] [place] [address]- Attending Physician: Not on Staff, Attending MD Referring Physician: Alysha Naranjo NP Allergies, Adverse Reactions, Alerts Substance Reaction Severity Status amoxicillin Active Cats Active Dust Active Grass Active Latex hives/rash Active Other Environmental Allergy Maple, [place], [place], Pollen Active Immunizations Given and Recorded Vaccine [...] (DT) 11/14/04 Given 1Admin Note: at work [employer] [facility] 2Admin Note: VIS GIVEN FLULAVAL 3Result Comment: 2nd one 4Admin Note: GIVEN BY DG 5Admin Note: [employer] [facility] Medications Albuterol (Eqv-ProAir HFA) 90 mcg/inh inhalation aerosol See Instructions, INHALE 2 PUFFS EVERY 4 HOURS NEEDED FOR WHEEZING, # 25.5 Unknown, 0 Refills, [facility], 90, INHALE 2 PUFFS EVERY 4 HOURS NEEDED FOR WHEEZING, 160.02, cm, 05/06/22 15:43:00 EDT, Height, 82.6, kg, 08/06/21 16:12:00 EDT, Dry... Start Date: 06/23/22 Status: Ordered albuterol 0.083% inhalation solution 3 mL = 2.5 mg, Inhalation, Every 6 hours, PRN for wheezing/shortness of breath, # 60 each, 2 Refills, Maintenance, 10/28/20 9:59:00 EST, Solution, [facility]/pharmacy #[id number], Partial fill upon patient request if the prescription is for a schedule II opioid dr... Start Date: 10/28/20 Status: Ordered albuterol-ipratropium 3 mg-0.5 mg/3 ml inhalation solution 3 mL, Inhalation, 4 times a day, # 90 mL, 1 Refills, Maintenance, 01/11/22 13:40:00 EST, Solution, [facility]/pharmacy #[id number], Partial fill upon patient request if the prescription is for a schedule II opioid drug., 3 mL Inhalation 4 times a day, 160.02, cm,... Start Date: 01/11/22 Status: Ordered Azithromycin 5 Day Dose Pack 250 mg oral tablet 1 pack/packet, By Mouth, Once, # 6 tablet, 0 Refills, Soft Stop, 02/15/22 13:05:00 EDT, Tablet, [facility]/pharmacy #[id number], Partial fill upon patient request if the prescription is for a schedule II opioid drug., 160.02, cm, 01/11/22 13:08:00 EST, Height, 82.... Start Date: 02/15/22 Status: Ordered cephalexin monohydrate 500 mg oral capsule 1 capsule = 500 mg, By Mouth, 3 times a day, for 10 days, # 30 capsule, 0 Refills, Acute 07/30/22 10:02:00 EDT, 07/20/22 10:02:00 EDT, Capsule, [facility]/pharmacy #[id number], Partial fill upon patient request if the prescription is for a schedule II opioid drug.... Start Date: 07/20/22 Stop Date: 07/30/22 Status: Ordered Diflucan 150 mg oral tablet 1 tablet = 150 mg, By Mouth, Once, # 1 tablet, 0 Refills, Soft Stop, 06/22/21 11:41:00 EDT, Tablet,[facility]/pharmacy #[id number], Partial fill upon patient request if the prescription is for a schedule II opioid drug., 160.02, cm, 05/04/21 8:34:00 EDT, Height,... Start Date: 06/22/21 Status: Ordered Diflucan 150 mg oral tablet 1 tablet = 150 mg, By Mouth, Once, # 1 tablet, 0 Refills, Soft Stop, 02/13/22 15:31:00 EDT, Tablet,[facility]/pharmacy #[id number], Partial fill upon patient request if the prescription is for a schedule II opioid drug., 160.02, cm, 01/11/22 13:08:00 EST, Height,... Start Date: 02/13/22 Status: Ordered Diflucan 150 mg oral tablet See Instructions, 1 tablet By Mouth Once, # 2 tablet, 0 Refills, Soft Stop, 05/13/21 15:32:00 EDT, Tablet, [facility]/pharmacy #[id number], take 1 tablet by mouth, if symptoms [...] Acute 07/30/22 12:00:00 EDT, 07/16/22 8:35:00 EDT, [facility]/pharmacy #[id number],... Start Date: 07/16/22 Stop Date: [...] of pneumonia(Confirmed) Active Obese class I(Confirmed) Active Vital Signs Most recent to oldest [Reference Range]: 1 Height 160.02 cm (07/20/22 9:37 AM) Oxygen Saturation [94-100 %] 97 % (07/20/22 9:37 AM) Pulse Rate [55-90 bpm] 85 bpm (07/20/22 9:37 AM) Blood Pressure [90-138/55-84 mm Hg] 135/ 90mm Hg (07/20/22 9:37 AM) Respiratory Rate [16-30 br/min] 16 br/mi n (07/20/22 9:37 AM) Temperature [96.8-100.4 DegF] 97.3 DegF (07/20/22 9:37 AM) Mode of Delivery (Oxygen) Room air (07/20/22 9:37 AM) Blood pressure sites Arm, right (07/20/22 9:37 AM) Temperature Route Temporal (07/20/22 9:37 AM) Social History Social History Type Response Smoking Status Former smoker entered on: 05/23/15 Sex Care Team Personnel Name: Alysha Naranjo NP Address: [address] [place], [place] [address]
[2024-04-22 09:31] LABS: IDNOW Serial# 6674DD1D; Strep A Nucleic Acid Negative (Negative)
--- NOTE | 2024-04-22 09:55 | ED.URI ---
HPI - URI/Sore Throat General Chief Complaint: Upper Respiratory Symptoms Stated Complaint: Difficulty breathing, cough Time Seen by Provider: 04/22/24 09:04 Source: patient Mode of arrival: ambulatory Limitations: no limitations History of Present Illness HPI Narrative: Patient is a 48 female presents to the emergency department for evaluation. She reports an asthma exacerbation, for the past week she has been experiencing nonproductive cough, shortness of breath. She has been taking albuterol inhaler and nebulizer treatments with only minimal relief. Two days ago she went urgent care and she was prescribed prednisone, she states no improvement since starting the prednisone. She also states that she was recently exposed to a young child who is currently being treated for croup, and last night she found black mold in air conditioner, she feels as though this may be contributing to her symptoms. Denies fevers, chills, headache, dizziness, neck pain, neck stiffness, chest pain, nausea, vomiting, abdominal pain, numbness or tingling of the extremities, genitourinary symptoms. Related Data Previous Rx's ?Medication ?Instructions ?Recorded doxycycline hyclate 100 mg capsule 100 mg PO BID #10 caps 10/09/20 hydrocodone-homatropine 5 mg-1.5 5 ml PO Q6H PRN cough #473 mL 10/09/20 mg/5 mL oral syrup prednisone 50 mg tablet 50 mg PO DAILY 5 days #5 tabs 10/09/20 ciprofloxacin HCl 500 mg tablet 500 mg PO Q12H 7 days #14 tabs 04/05/21 (Cipro) ciprofloxacin HCl 500 mg tablet 500 mg PO Q12H 5 days #10 tabs 11/05/21 prednisone 20 mg tablet 40 mg (2 x 20 mg) PO DAILY 5 days 02/10/22 #10 tabs cetirizine 10 mg capsule 10 mg PO DAILY PRN allergy 07/17/22 symptoms #14 caps clobetasol 0.05 % topical ointment 1 appl topical DAILY PRN rash #45 07/17/22 grams diphenhydramine HCl 25 mg capsule 50 mg (2 x 25 mg) PO BEDTIME PRN 07/17/22 (Benadryl) allergy symptoms #20 caps famotidine 20 mg tablet (Pepcid) 20 mg PO DAILY #10 tabs 07/17/22 clindamycin HCl 150 mg capsule 450 mg (3 x 150 mg) PO TID 7 days 07/20/22 #63 caps metoclopramide HCl 5 mg tablet 5 mg PO Q6H #10 tabs 11/29/22 (Reglan) sumatriptan succinate 50 mg tablet See Rx Instructions PO .COMPLEX 11/29/22 #10 tabs azithromycin 250 mg tablet See Rx Instructions PO .COMPLEX #6 04/22/24 tabs Allergies Allergy/AdvReac Type Severity Reaction Status Date / Time latex [LATEX] Allergy Unknown RASH Verified 04/22/24 08:56 Latex Gloves Allergy Unknown Rash Uncoded 11/29/22 02:31 Review of Systems Review of Systems: Yes all other systems are reviewed and are negative PENDING SALE TO [facility] Past Medical History Attestation statement: The following information was validated with the patient. Source: old records reviewed Medical History Migraine Uterine fibroid Asthma No known health problems Surgical History History of hysterectomy Family History Family History Other Family history non-contributory Social History Social History Alcohol intake: current Advance Directives: Yes Advance Directives Information Provided: Yes Advance Directives on File: No Do you have a plan to hurt others: No Plan Physical Exam Vital Signs: Vital Signs: Last Vital Signs Temp 97.6 F 04/22/24 10:56 Pulse 63 04/22/24 10:56 Resp 18 04/22/24 10:56 BP 142/97 H 04/22/24 10:56 Pulse Ox 99 04/22/24 10:56 O2 Del Method Room Air 04/22/24 10:56 BMI result Body Mass Index 30.1 Appearance: Alert.?Oriented to person, place and time. No acute distress.?Normal affect. Eyes: Pupils equal, round and reactive to light.? ENT: TM normal bilaterally. Pharynx normal.?? Neck: Normal inspection.? Neck supple.??No cervical adenopathy CVS: Heart sounds normal. Normal heart rate and rhythm.? Pulses normal.?? Respiratory: No respiratory distress.? Lung sounds clear to auscultation bilaterally . No stridor. No retractions?? Abdomen: Soft and non-tender. Normoactive bowel sounds. Skin: Skin warm and dry.? Normal skin color.? ? Extremities: No lower extremity edema.? Neuro: Moves all extremities spontaneously. Sensation intact bilaterally. No motor deficits. Ambulates with normal steady gait. Medical Decision Making Medical Decision Making [facility] Narrative: Patient is a 48-year-old female with past medical history of asthma and migraines presenting for evaluation of shortness of breath cough and sore throat COVID-19 /Influenza/RSV testing negative. 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 At this time history and physical exam not consistent with ACS/PE . CXR is without evidence of pneumonia. Overall she isWell-appearing, nontoxic, afebrile, no tachycardia or tachypnea/hypoxia. Speaking clear full sentences, ambulatory with steady gait. in the past she is benefitted from azithromycin in addition to prednisone cetirizine albuterol, sent prescription for azithromycin to pharmacy for pleiotropic affect. Discussed conservative treatment including rest, hydration, Tylenol/ibuprofen as needed for fever and body aches, saline nasal spray, humidifier, [id number] cold medication. Advised to follow-up with primary care provider as needed, discussed reasons to return back to the emergency department. All questions were answered. Patient discharged home in stable condition. Provided with a return to work note. Differential Diagnosis Differential Diagnoses: The differential diagnosis associated with the presentation includes ( See narrative above) Admission/Observation Consideration of admission/observation: Escalation of care including admission/observation considered ( see narrative above) Lab Data [facility] Lab Attestation statement: I reviewed the patient's lab results. ( see narrative above) Labs: Lab Results 04/22/24 Range/Units 09:12 Influenza Type A (PCR) NEGATIVE (Negative) Influenza Type B (PCR) NEGATIVE (Negative) RSV RNA Qual (PCR) NEGATIVE (Negative) SARS-CoV-2 RNA (RT-PCR) NEGATIVE (Negative) S. pyogenes GrpA JENNIFER Negative (Negative) Independent Interpretation I performed an independent interpretation of an: Plain X-Ray ( no infiltrate or consolidation) Radiology Impression Discussion of test interpretation with radiology: I have reviewed the radiologist's reading. Radiologist Impression: XR/XR chest 2V IMPRESSION: No acute cardiopulmonary process. External Record Review External record reviewed: Outpatient record Prescription Management I considered prescription management with: Pain Medication ( acetaminophen/ibuprofen) and Antibiotic Discharge Plan Discharge Clinical Impression: Asthma exacerbation Patient Disposition: Home, Self-Care Instructions: Asthma (ED) Additional Instructions: continue taking prednisone as prescribed and your albuterol inhaler / nebulizer and allergy medication a prescription for azithromycin was sent to your pharmacy. Follow-up with your primary care provider. Return back to emergency department any new or worsening symptoms or concerns. Prescriptions: New azithromycin 250 mg tablet See Rx Instructions .ROUTE .COMPLEX Qty: 6 0RF Rx Instructions: For 250 mg dose pack: take 500 mg today (day 1), then 250 mg for 4 days (days 2-5) No Action doxycycline hyclate 100 mg capsule 100 mg PO BID Qty: 10 0RF prednisone 50 mg tablet 50 mg PO DAILY 5 Days Qty: 5 0RF hydrocodone-homatropine 5-1.5 mg/5 mL syrup 5 ml PO Q6H PRN (Reason: cough) Qty: 473 0RF ciprofloxacin HCl [Cipro] 500 mg tablet 500 mg PO Q12H 7 Days Qty: 14 0RF prednisone 20 mg tablet 40 mg PO DAILY 5 Days Qty: 10 0RF ciprofloxacin HCl 500 mg tablet 500 mg PO Q12H 5 Days Qty: 10 0RF cetirizine 10 mg capsule 10 mg PO DAILY PRN (Reason: allergy symptoms) Qty: 14 0RF diphenhydramine HCl [Benadryl] 25 mg capsule 50 mg PO BEDTIME PRN (Reason: allergy symptoms) Qty: 20 0RF famotidine [Pepcid] 20 mg tablet 20 mg PO DAILY Qty: 10 0RF clobetasol 0.05 % ointment 1 appl topical DAILY PRN (Reason: rash) Qty: 45 0RF clindamycin HCl 150 mg capsule 450 mg PO TID 7 Days Qty: 63 0RF sumatriptan succinate 50 mg tablet See Rx Instructions .ROUTE .COMPLEX Qty: 10 0RF Rx Instructions: take 1 tab at onset of headache; if no relief may repeat 1 tab after at least 2 hrs; max = 4 tabs/24 hr metoclopramide HCl [Reglan] 5 mg tablet 5 mg PO Q6H Qty: 10 0RF Rx Instructions: Take together with sumatriptan p.r.n. severe migraine Referrals: Todd uQiroga DO [Primary Care Provider] - Stand Alone Forms: Work/School Release Interventions: ED Discharge Assessment Last Done: 04/22/24 10:56 Discharge Date/Time: 04/22/24 10:56 Print Language: Sinhala
[2024-04-22 09:58] LABS: Influenza A PCR NEGATIVE (Negative); Influenza B PCR NEGATIVE (Negative); Resp Syncy Virus RNA Qual PCR NEGATIVE (Negative); SARS COV2 PCR INHOUSE NEGATIVE (Negative)
[2024-04-22 10:56] VITALS: BP 142/97; PULSE 63; RESP 18; TEMP 36.4; O2SAT 99
== END 2024-04-22 10:56 | disposition home or self-care (01) ==
PROVIDERS: Emergency Provider Emergency Medicine; PCP Family Medicine
DX: J45.901 Unspecified asthma with (acute) exacerbation (principal)
CPT/HCPCS: 0241U; 71046; 87651; 99282; 99283

== ENCOUNTER 2025-07-03 18:24 | Emergency (ER) | payer OTHER, SELFPAY ==
[2025-07-03 18:34] VITALS: BP 169/96; PULSE 70; RESP 18; TEMP 36.5; O2SAT 97; BMI 32.5
--- NOTE | 2025-07-03 18:35 | ED.GENADULT ---
HPI - General Adult General Chief complaint: Urogenital-Female Stated complaint: ? kidney infection or UTI Time Seen by Provider: 07/03/25 22:25 Source: patient Mode of arrival: ambulatory Limitations: no limitations History of Present Illness ED Provider: Dr. Oscar Narayanan HPI narrative: 50-year-old female with a history of asthma, migraines who presents emergency department for evaluation of frequency, dysuria and left-sided flank pain. Patient states she has had painful urination and has been urinating frequently for 3 days. She states that today she developed a dull pain with a sharp component in her left flank area which was 8/10. She denied fever or chills. She had nausea but no vomiting. She denied diarrhea. She denied myalgias arthralgias. The patient's last urinary tract infection was 5 years prior. Related Data Previous Rx's ?Medication ?Instructions ?Recorded doxycycline hyclate 100 mg capsule 100 mg PO BID #10 caps 10/09/20 hydrocodone-homatropine 5 mg-1.5 5 ml PO Q6H PRN cough #473 mL 10/09/20 mg/5 mL oral solution prednisone 50 mg tablet 50 mg PO DAILY 5 days #5 tabs 10/09/20 ciprofloxacin HCl 500 mg tablet 500 mg PO Q12H 7 days #14 tabs 04/05/21 (Cipro) ciprofloxacin HCl 500 mg tablet 500 mg PO Q12H 5 days #10 tabs 11/05/21 prednisone 20 mg tablet 40 mg (2 x 20 mg) PO DAILY 5 days 02/10/22 #10 tabs cetirizine 10 mg capsule 10 mg PO DAILY PRN allergy 07/17/22 symptoms #14 caps clobetasol 0.05 % topical ointment 1 appl topical DAILY PRN rash #45 07/17/22 grams diphenhydramine HCl 25 mg capsule 50 mg (2 x 25 mg) PO BEDTIME PRN 07/17/22 (Benadryl) allergy symptoms #20 caps famotidine 20 mg tablet (Pepcid) 20 mg PO DAILY #10 tabs 07/17/22 clindamycin HCl 150 mg capsule 450 mg (3 x 150 mg) PO TID 7 days 07/20/22 #63 caps metoclopramide HCl 5 mg tablet 5 mg PO Q6H #10 tabs 11/29/22 (Reglan) sumatriptan succinate 50 mg tablet See Rx Instructions PO .COMPLEX 11/29/22 #10 tabs azithromycin 250 mg tablet See Rx Instructions PO .COMPLEX #6 04/22/24 tabs cefuroxime axetil 250 mg tablet 250 mg PO Q12H 7 days #14 tabs 07/04/25 fluconazole 150 mg tablet 150 mg PO QWEEK 2 weeks #2 tabs 07/04/25 ondansetron 4 mg disintegrating 4 mg PO Q6-8H PRN nausea and 07/04/25 tablet vomiting #14 tabs oxycodone 5 mg tablet 5 mg PO Q4H PRN pain #10 tabs 07/04/25 Allergies Allergy/AdvReac Type Severity Reaction Status Date / Time latex (LATEX) Allergy Unknown RASH Verified 07/03/25 18:35 Latex Gloves Allergy Unknown Rash Uncoded 11/29/22 02:31 Review of Systems Review of Systems: Yes all other systems are reviewed and are negative [facility] Past Medical History [facility] Narrative: Social history: 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 She denies tobacco use. She occasionally drinks alcohol. Medical History Migraine Uterine fibroid Asthma No known health problems Surgical History History of hysterectomy Family History Family History Other Family history non-contributory Social History Social History Alcohol intake: current Alcohol intake frequency: holidays/special occasions only Smoked in Last 30 Days: No Use of substances other than those prescribed or required for medical reasons: No Advance Directives: No Advance Directives Information Provided: Yes Patient : No Physical Exam ED Vital Signs: Vital Signs - 24 hr 07/03/25 18:34 07/03/25 20:42 07/03/25 22:09 Temperature 97.7 F 97.4 F 98.2 F Pulse Rate 70 64 68 Respiratory Rate 18 18 16 Blood Pressure 169/96 H 133/78 122/76 Pulse Oximetry 97 96 96 Oxygen Delivery Method Room Air Room Air Room Air 07/03/25 23:29 07/03/25 23:41 07/04/25 00:26 Temperature 98.5 F Pulse Rate 64 Respiratory Rate 16 16 Blood Pressure 138/80 Pulse Oximetry 97 Oxygen Delivery Method Room Air BMI result Body Mass Index 32.5 Vital signs revealed an elevated blood pressure of 169/96 which improved after treatment of her pain. Exam: General: Awake, alert in no distress Head: Normocephalic, atraumatic EENT: PERRL, Lids normal, sclera normal, conjunctiva normal, nose normal , ears normal, throat without erythema or exudates Neck: Supple, no adenopathy Lung: breath sounds symmetric, no wheezing, rales or rhonchi Chest: symmetric movement, nontender Heart: regular rate and rhythm, normal S1, S2 no murmurs or rubs Abdomen: soft, non-tender, nondistended, normal bowel sounds Back: no vertebral tenderness, moderate left CVA tenderness, no right CVA tenderness Extremities: no deformities, moves all extremities symmetrically Neuro: Awake, alert, oriented, normal speech, cranial nerves intact, moves all extremities symmetrically Psych: Pleasant, cooperative Course Course Course Narrative: RME, this is a rapid medical exam performed by Joe Quintanilla please refer to primary provider for complete H&P- 50-year-old female presents for evaluation of burning with urination and flank pain. She also complains of nausea. Plan for basic labs, and urinalysis Medications Administered Discontinued Medications Generic Name Dose Route Start Last Admin Trade Name Freq PRN Reason Stop Dose Admin Ceftriaxone Sodium 1 gm 07/03/25 22:46 07/03/25 22:57 Ceftriaxone Sodium 1 Gm Vial IVPUSH 07/03/25 22:47 1 gm ONCE ONE Administration Sodium Chloride 1,000 mls @ 999 mls/hr 07/03/25 22:45 07/04/25 00:16 Ns IV 07/03/25 23:45 Infused .Q1H1M STA Infusion Ketorolac Tromethamine 15 mg 07/03/25 22:45 07/03/25 22:56 Ketorolac Tromethamine 15 Mg/Ml Vial IVPUSH 07/03/25 22:46 15 mg ONCE STA Administration Morphine Sulfate 4 mg 07/03/25 23:36 07/03/25 23:41 Morphine Sulfate 4 Mg/Ml Cartridge IVPUSH 07/03/25 23:37 4 mg ONCE STA Administration Protocol Morphine Sulfate 4 mg 07/04/25 00:19 07/04/25 00:26 Morphine Sulfate 4 Mg/Ml Cartridge IVPUSH 07/04/25 00:20 4 mg ONCE STA Administration Protocol Ondansetron HCl 4 mg 07/03/25 22:45 07/03/25 22:56 Ondansetron Hcl 4 Mg/2 Ml Vial IVPUSH 07/03/25 22:46 4 mg ONCE ONE Administration Medical Decision Making Medical Decision Making [facility] Narrative: 50-year-old female with a history of asthma, migraines who presents emergency department for evaluation of frequency, dysuria and left-sided flank pain. Patient states she has had painful urination and has been urinating frequently for 3 days. She states that today she developed a dull pain with a sharp component in her left flank area which was 8/10. She denied fever or chills. She had nausea but no vomiting. She denied diarrhea. She denied myalgias arthralgias. The patient's last urinary tract infection was 5 years prior. Vital signs revealed an elevated blood pressure otherwise unremarkable physical examination did reveal left CVA tenderness. Differential diagnosis: ?Includes but is not limited to urinary tract infection, pyelonephritis, anemia, electrolyte abnormalities Course: 00:53 My interpretation patient's laboratory evaluation is as follows: WBC elevated 15,800. BNP was normal. Quantitative beta-hCG was negative. Urinalysis was positive for blood, protein, leukocyte esterase. Microscopic revealed greater than 20 RBCs, greater than 50 WBCs and 2+ bacteria. Patient's laboratory evaluation and physical exam findings are consistent with left pyelonephritis and I did discuss this with the patient. The patient was initially treated with Toradol 15 mg IV with no improvement of her pain. She was given morphine 4 mg IV 2 with improvement of her pain. Patient was also treated with ceftriaxone 1 g IV. The patient was given prescriptions for or cefuroxime 250 mg q.12 hours times 7 days. She was advised to take ibuprofen 400 mg every 6 hours as needed for pain and extra-strength Tylenol 1000 mg every 6 hours as needed for pain. She was also given a prescription for oxycodone 5 mg every 4 hours as needed for pain not relieved by Tylenol and ibuprofen. She was also given a prescription for Zofran 4 mg ODT every 6-8 hours as needed for nausea and vomiting. Patient was given a work note to take 4 days off from work. She was given printed and verbal instructions and discharged home. Admission/Observation Consideration of admission/observation: Escalation of care including admission/observation considered (Yes) Lab Data [facility] Lab Attestation statement: I reviewed the patient's lab results. 07/03/25 19:11 07/03/25 19:11 Labs: Lab Results 07/03/25 07/03/25 Range/Units 19:08 19:11 WBC 15.8 H (4.8-10.8) X10*3/uL RBC 4.22 (4.20-5.50) X10*6/uL Hgb 13.0 (12.0-16.0) g/dl Hct 38.6 (37.0-47.0) % MCV 91.5 (80.0-98.0) fL MCH 30.8 (27.0-33.0) pg MCHC 33.7 (31.0-35.0) g/dl RDW 13.4 (11.0-16.0) % Plt Count 273 (160-400) X10*3/uL MPV 10.4 (9.4-12.3) fL Immature Gran % (Auto) 0.3 (0.0-0.4) % Neut % (Auto) 73.2 H (45-73) % Lymph % (Auto) 18.7 L (20-40) % Moody % (Auto) 6.3 (2-11) % Eos % (Auto) 1.1 (0-4) % Baso % (Auto) 0.4 (0-2) % Lymph # (Auto) 3.0 (1.2-4.9) X10*3/uL Moody # (Auto) 1.0 (0.1-1.2) X10*3/uL Eos # (Auto) 0.2 (0.0-0.4) X10*3/uL Baso # (Auto) 0.1 (0.0-0.2) X10*3/uL Abs Immat Gran (auto) 0.05 H (0.00-0.03) X10*3/uL Absolute Neuts (auto) 11.6 H (2.0-8.3) x10*3/uL Absolute Nucleated RBC 0.000 (0.0-0.012) X10*3/uL Nucleated RBC % (auto) 0.0 (0.0-0.2) /100WBC Sodium 139 (135-145) mmol/L Potassium 3.9 (3.3-5.1) mmol/L Chloride 105 (96-108) mmol/L Carbon Dioxide 25 (22-29) mmol/L Anion Gap 13 (12-20) BUN 11 (9-16) mg/dL Creatinine 0.88 (0.5-1.4) mg/dL Estim Creat Clear Calc 79.0 Estimated GFR > 60 Random Glucose 81 (60-115) mg/dL Calcium 9.3 (8.4-10.2) mg/dL Beta HCG, Quant < 2 mIU/mL Urine Color Yellow Urine Appearance Cloudy Urine pH 5.5 (5.0-9.0) Ur Specific [place] <= 1.005 (1.005-1.025) Urine Protein 30 (1+) H (Neg-Trace) mg/dL Urine Glucose (UA) Negative (Negative) mg/dL Urine Ketones Negative (Negative) mg/dL Urine Blood Large (3+) H (Negative) Urine Nitrite Negative (Negative) Ur Leukocyte Esterase Large (3+) H (Negative) Urine RBC >20 H (0-2) /HPF Urine WBC >50 H (0-5) /HPF Ur Squamous Epith Cells 0-2 (0-2) /HPF Urine Bacteria 2+ (None Seen) Hyaline Casts 0-2 (0-2) /LPF Prescription Management I considered prescription management with: Pain Medication (Oxycodone) and Antibiotic (Cefuroxime) Critical Care Time Critical Care Time Critical Care Time: Yes Total Critical Care Time: 35 Attestation: Critical Care: The patient was critically ill with a high probability of imminent or life threatening deterioration. I spent greater than 30 minutes of discontinuous time evaluating the patient,delivering critical care at the bedside, discussing and evaluating pertinent data with consultants. Critical care time does not include time spent performing separately billable procedures or teaching. Total time spent performing critical care was 35 minutes. Discharge Plan Discharge Clinical Impression: Pyelonephritis of left kidney Patient Disposition: Home, Self-Care Instructions: Kidney Infection (ED) Additional Instructions: [place] [id number] otherwise your blood work was unremarkable. Your test was negative Your urine test revealed a large amount of red blood cells, white blood cells and bacteria in your urine. This is consistent with a urinary tract infection Your physical exam did reveal tenderness with tapping on the left side of your back which is consistent with a left kidney infection (pyelonephritis). You were treated with ceftriaxone 1 g IV. This has a broad-spectrum antibiotic that treats most urine infections. This antibiotic will last for 24 hours. You also received normal saline IV x1 L, Toradol 15 mg, morphine 4 mg x 2 and Zofran 4 mg IV here in the emergency department. Take cefuroxime 250 mg pills, 1 pill every 12 hours for 7 days. Make sure you take all of these medications him complete the prescription. Take ibuprofen 200 mg pills, 2 pills every 6 hours as needed for pain. Take Tylenol (acetaminophen) 500 mg pills, 2 pills every 6 hours as needed for pain. For pain not relieved by ibuprofen or Tylenol take oxycodone 5 mg pills, 1 pill every 4 hours as needed for pain. Do not drive or work while taking this medication since they can cause sleepiness. Oxycodone is a narcotic medication that can be addicting. If you are concerned about addiction you can ask the pharmacist for less pills or do not get this prescription filled. Take Zofran ODT 4 mg pills, 1 pill dissolved in your mouth every 8 hours as needed for nausea and vomiting. If you develop signs and symptoms of a yeast infection take Diflucan 150 mg orally and you can repeat this dose 1 week later Follow-up with your doctor in 2 days. Please return to the emergency department if your symptoms get worse or if you develop any symptoms that are concerning to you. Please see the return to work note Prescriptions: New cefuroxime axetil 250 mg tablet 250 mg PO Q12H 7 Days Qty: 14 0RF ondansetron 4 mg tablet,disintegrating 4 mg PO Q6-8H PRN (Reason: nausea and vomiting) Qty: 14 0RF fluconazole 150 mg tablet 150 mg PO QWEEK 14 Days Qty: 2 0RF oxycodone 5 mg tablet 5 mg PO Q4H PRN (Reason: pain) Qty: 10 0RF Rx Instructions: Partial Fill upon patient request. No Action doxycycline hyclate 100 mg capsule 100 mg PO BID Qty: 10 0RF prednisone 50 mg tablet 50 mg PO DAILY 5 Days Qty: 5 0RF hydrocodone-homatropine 5-1.5 mg/5 mL syrup 5 ml PO Q6H PRN (Reason: cough) Qty: 473 0RF ciprofloxacin HCl [Cipro] 500 mg tablet 500 mg PO Q12H 7 Days Qty: 14 0RF prednisone 20 mg tablet 40 mg PO DAILY 5 Days Qty: 10 0RF ciprofloxacin HCl 500 mg tablet 500 mg PO Q12H 5 Days Qty: 10 0RF cetirizine 10 mg capsule 10 mg PO DAILY PRN (Reason: allergy symptoms) Qty: 14 0RF diphenhydramine HCl [Benadryl] 25 mg capsule 50 mg PO BEDTIME PRN (Reason: allergy symptoms) Qty: 20 0RF famotidine [Pepcid] 20 mg tablet 20 mg PO DAILY Qty: 10 0RF clobetasol 0.05 % ointment 1 appl topical DAILY PRN (Reason: rash) Qty: 45 0RF clindamycin HCl 150 mg capsule 450 mg PO TID 7 Days Qty: 63 0RF sumatriptan succinate 50 mg tablet See Rx Instructions .ROUTE .COMPLEX Qty: 10 0RF Rx Instructions: take 1 tab at onset of headache; if no relief may repeat 1 tab after at least 2 hrs; max = 4 tabs/24 hr metoclopramide HCl [Reglan] 5 mg tablet 5 mg PO Q6H Qty: 10 0RF Rx Instructions: Take together with sumatriptan p.r.n. severe migraine azithromycin 250 mg tablet See Rx Instructions .ROUTE .COMPLEX Qty: 6 0RF Rx Instructions: For 250 mg dose pack: take 500 mg today (day 1), then 250 mg for 4 days (days 2-5) Stand Alone Forms: Work/School Release Print Language: Maori
[2025-07-03 19:14] LABS: MANUAL DIFF FLAG NO
[2025-07-03 19:17] LABS: Appearance Urine Cloudy; Glucose Urine UA Negative (Negative); PH 5.5 (5.0-9.0); Specific Gravity - Urine <= 1.005 (1.005-1.025); UMIC TRIGGER UACC YES
[2025-07-03 19:17] LABS: Hematocrit 38.6 % (37.0-47.0); Hemoglobin 13.0 g/dl (12.0-16.0); Imm Gran Abs Auto 0.05 X10*3/uL (0.00-0.03); Imm Gran Pct Auto 0.3 % (0.0-0.4); Lymphocytes Absolute Auto 3.0 X10*3/uL (1.2-4.9); Mean Corpuscular HGB Conc 33.7 g/dl (31.0-35.0); Mean Corpuscular Hemoglobin 30.8 pg (27.0-33.0); Mean Corpuscular Volume 91.5 fL (80.0-98.0); NRBC Abs Auto 0.000 X10*3/uL (0.0-0.012); NRBC Pct Auto 0.0 /100WBC (0.0-0.2); Platelet Count 273 X10*3/uL (160-400); Red Blood Count 4.22 X10*6/uL (4.20-5.50); White Blood Count 15.8 X10*3/uL (4.8-10.8)
[2025-07-03 19:23] LABS: UACC Culture Trigger YES
[2025-07-03 19:36] LABS: Anion Gap 13 (12-20); Blood Urea Nitrogen 11 mg/dL (9-16); Calcium 9.3 mg/dL (8.4-10.2); Carbon Dioxide 25 mmol/L (22-29); Chloride 105 mmol/L (96-108); Creatinine Clr Calc Pharmacy 79.0; Estimated Glomerular Filt Rate > 60; Potassium 3.9 mmol/L (3.3-5.1); Sodium 139 mmol/L (135-145)
[2025-07-03 20:42] VITALS: BP 133/78; PULSE 64; RESP 18; TEMP 36.3; O2SAT 96
[2025-07-03 22:09] VITALS: BP 122/76; PULSE 68; RESP 16; TEMP 36.8; O2SAT 96
--- NOTE | 2025-07-03 23:02 | PC.NURSE ---
pt medicated per MAR
[2025-07-03 23:29] VITALS: BP 138/80; PULSE 64; TEMP 36.9; O2SAT 97
[2025-07-03 23:41] VITALS: RESP 16
--- NOTE | 2025-07-03 23:44 | PC.NURSE ---
pt pain level still 8/10 after receiving Toradol, MD made aware new order for morphine placed, pt medicated per MAR
[2025-07-04 00:26] VITALS: RESP 16
[2025-07-04 01:09] VITALS: BP 138/80; PULSE 64; RESP 16; TEMP 36.9; O2SAT 97
== END 2025-07-04 01:12 | disposition home or self-care (01) ==
PROVIDERS: Physician Assistant; Emergency Provider Emergency Medicine Emergency Medical Services; PCP Family Medicine
DX: N12 Tubulo-interstitial nephritis, not specified as acute or chronic (principal)
CPT/HCPCS: 36415; 80048; 81001; 84702; 85025; 87086; 87088; 87186; 96361; 96374; 96375; 96376; 99284; 99285; J0696; J1885; J2270; J2405

== ENCOUNTER 2025-07-11 08:20 | Emergency (ER) | payer OTHER, SELFPAY ==
--- NOTE | ~2025-07-11 | CT_ITS ---
EXAMINATION: CT ABDOMEN PELVIS WITH IV CONTRAST HISTORY: Left flank pain COMPARISON: There are no prior studies for available comparison. TECHNIQUE: CT scan of the abdomen and pelvis was performed following administration of 85 mL Omnipaque 350 using standard departmental protocol. Coronal and sagittal reformatted images were generated and reviewed. Oral contrast material was not administered at the request of the referring physician. This CT exam was performed with one or more of the following dose reduction techniques: automated exposure control, adjustment of the mA and/or kV according to patient size, use of iterative reconstruction technique. DLP: 542 mGy-cm FINDINGS: LOWER CHEST: The visualized lung bases are clear. There is no pleural effusion. CARDIOVASCULATURE: The heart is normal in size. There is no pericardial effusion. LIVER: The liver is normal in size and contour. No liver mass is identified. The hepatic and portal veins are patent. GALLBLADDER / BILE DUCTS: The gallbladder is unremarkable. There is no intra or extrahepatic biliary ductal dilatation. SPLEEN: The spleen is normal in size. No focal splenic lesion is identified. PANCREAS: The pancreas is unremarkable in appearance. ADRENAL GLANDS: Within normal limits. KIDNEYS/RETROPERITONEUM: No renal or ureteral calculi are identified. There is no hydronephrosis or hydronephrosis. No renal masses are identified. LYMPH NODES: No abdominal or pelvic lymphadenopathy. VASCULATURE: The abdominal aorta is normal in caliber. MESENTERY/PERITONEUM: No free fluid. No masses. There is no free intraperitoneal gas. STOMACH: The stomach is collapsed, limiting evaluation. SMALL BOWEL: The small bowel is normal in caliber. COLON: There is a large amount of stool throughout the colon. APPENDIX: The appendix is not seen, however no inflammatory changes are seen adjacent to the cecum. URINARY BLADDER/PELVIC ORGANS: The urinary bladder is unremarkable. The patient is status post hysterectomy. BONES / SOFT TISSUES: No suspicious bony or soft tissue abnormalities. CT/CT abdomen pelvis w IV con IMPRESSION: Large amount of stool throughout the colon. Electronically signed by: Corey Thompson MD 07/11/2025 01:37 PM EDT
--- NOTE | ~2025-07-11 | US_ITS ---
EXAMINATION: US RETROPERITONEAL LIMITED (RENAL ONLY) CLINICAL INFORMATION: Left flank pain. Recent history of pyelonephritis.. COMPARISON: Correlated to CT abdomen pelvis dated November 05, 2021. TECHNIQUE: Real-time ultrasound of the kidneys using grayscale technique. FINDINGS: RIGHT KIDNEY: 10 x 4 x 6 cm (SAG x AP x TRV). Volume: 127 cc. Normal echotexture. Normal renal cortical thickness. There is a 6 mm hyperechoic abnormality in the midportion without flow on color Doppler interrogation. Mild pelvicalyceal ectasia versus extrarenal pelvis. No overt hydronephrosis. LEFT KIDNEY: 11 x 6 x 7 cm (SAG x AP x TRV). Volume: 227 cc. Normal echotexture. Normal renal cortical thickness. 4 mm hyperechoic abnormality in the midportion. No ovarian hydronephrosis. Probable pelvicalyceal ectasia. 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 Mild pelvicalyceal ectasia.. Electronically signed by: Carmine Albert MD 07/11/2025 12:17 PM EDT
[2025-07-11 08:32] VITALS: BP 147/90; PULSE 79; RESP 18; TEMP 36.6; O2SAT 97; BMI 32.7
--- NOTE | 2025-07-11 09:24 | PC.NURSE ---
Pt being treated for UTI, finished her whole dose of antibiotics symptoms had improved but have started to come back starting Tuesday Denies fevers, reporting pain has returned to [place], denies urine was ever normal, has remained dark yellow and cloudy IV placed, labs and urine sent. Verbal order placed for Zofran at this time for nausea.
[2025-07-11 09:25] LABS: Hematocrit 37.7 % (37.0-47.0); Hemoglobin 12.8 g/dl (12.0-16.0); Mean Corpuscular HGB Conc 34.0 g/dl (31.0-35.0); Mean Corpuscular Hemoglobin 30.5 pg (27.0-33.0); Mean Corpuscular Volume 89.8 fL (80.0-98.0); NRBC Abs Auto 0.000 X10*3/uL (0.0-0.012); NRBC Pct Auto 0.0 /100WBC (0.0-0.2); Platelet Count 261 X10*3/uL (160-400); Red Blood Count 4.20 X10*6/uL (4.20-5.50); White Blood Count 8.2 X10*3/uL (4.8-10.8)
[2025-07-11 09:26] LABS: Appearance Urine Clear; Glucose Urine UA Negative (Negative); PH 7.5 (5.0-9.0); Specific Gravity - Urine 1.015 (1.005-1.025)
--- OUTSIDE RECORDS SUMMARY | 2025-07-11 09:26 | XMS_ITS | Clinical Summary ---
Author Organization [facility] Address [address] [place] [address] Phone Care Team Providers Care Cotton Chopper Name Role Phone Errol Quirogain Antonio PRYOR Primary Care Provider + [phone] Allergies Active Allergy Reactions Criticality Noted Date Comments Amoxicillin 07/25/2024 Latex Hives High 07/25/2024 Medications No known medications Social History Tobacco Use Types Packs/Day Years Used Date Smoking Tobacco: Never Smokeless Tobacco: Never Tobacco Cessation:Counseling Given: Not Answered Alcohol Use Standard Drinks/Week Comments Yes 0 (1 standard drink = 0.6 oz pur e alcohol) Education Answer Date Recorded Are you interested in more education? Not on temitope e 03/11/2023 Are you concerned about learning? Not on file 03/11/2023 No 03/11/2023 No 03/11/2023 Digital Access Answer Date Recorded No 04/11/2023 No 04/11/2023 Reliable internet access at home? Not on file 04/11/2023 Device with a working camera? Not on file Intimate Partner Violence Answer Date R ecorded Are you denied basic needs s uch as food, clothing, or medical care? No 07/25/2024 In the past 12 months have y ou been in a relationship with a person who hurts, threatens, or tries to control you? No 07/25/2024 Are you denied basic needs s uch as food, clothing, or medical care? No 07/25/2024 In the past 12 months have y ou been in a relationship with a person who hurts, threatens, or tries to control you? No 07/25/2024 Comments Unknown Sex and Gender Information Value Date Recorded Sex Assigned at Female 07/25/2024 8:21 AM EDT Legal Sex Female 1:31 PM EDT Gender Identity Female 07/25/2024 8:21 AM EDT Sexual Orientation Not on file Last Filed Vital Signs Vital Sign Reading Time Taken Comments Blood Pressure 128/87 07/25/2024 9:51 AM EDT Pulse 63 07/25/2024 9:51 AM EDT Temperature 36.8 C (98.2 F) 07/25/2024 9:51 AM EDT Respiratory Rate 18 07/25/2024 9:51 AM EDT Oxygen Saturation 100% 07/25/2024 9:51 AM EDT Inhaled Oxygen Concentration - - Weight 77.1 kg (170 lb) 07/25/2024 8:21 AM EDT Height 160 cm (5' 3 ) 07/25/2024 8:21 AM EDT Body Mass Index 30.11 07/25/2024 8:21 AM EDT Plan of Treatment Health Maintenance Due Date Last Done Comments Adult Td,Tdap Booster 1976 DEPRESSION SCREENING 1988 HEPATITIS C SCREENING 1994 HIV ONE-TIME SCREENING (18-6 5 YEARS) 1994 PAP SMEAR 1997 SMOKING STATUS SCREENING (On ce After 26 Yrs) 2002 MAMMOGRAM 2016 COLOGUARD 2021 COLONOSCOPY 2021 COLORECTAL CANCER SCREENING 2021 FIT TEST 2021 FOBT 2021 SIGMOIDOSCOPY 2021 VIRTUAL COLONOSCOPY 2021 LIPID PANEL 10/17/2022 10/17/2017 COVID-19 VACCINE ( - 2023-2 5 season) 2024 SCREENING FOR DIABETES 07/25/2027 , 10/17/2017 HEPATITIS A VACCINES Aged Out No long er eligible based on patient's age to complete this topic HIB VACCINES Aged Out No longer eligi ble based on patient's age to complete this topic MENINGOCOCCAL VACCINES (ACWY) Aged Out No longer eligible based on patient's age to complete this topic MENINGOCOCCAL VACCINES (B) Aged Out N o longer eligible based on patient's age to complete this topic PNEUMOCOCCAL VACCINES (0-49 years) Aged Out No longer eligible b ased on patient's age to complete this topic Medical Devices Not on file Insurance [facility] Member Subscriber Plan / Payer (Ef fective 2020-Present) Name:Julia Peña Relation to Subscriber:Self Name:Julia Peña Payer ID:[id number] (NAIC) Type:HMO Address: [address] [place], [place] [facility] Member Subscriber Plan / Payer (Ef fective 2020-Present) Name:Julia Peña Relation to Subscriber:Self Name:Julia Peña Payer ID:[id number] (NAIC) Type:HMO Address: [address] [place], [place] [facility] Member Subscriber Plan / Payer (Ef fective 2020-Present) Name:Julia Peña Relation to Subscriber:Self Name:Julia Peña Payer ID:[id number] (NAIC) Type:HMO Address: [address] [place], [place] [facility] Care Teams Cotton Chopper Relationship Specialty Start Date End Date Todd Quiroga DO [address] [address] PCP - General Family Medicine 01/27/24 Additional Source Comments The information contained in this document represents components of the legal health record. It is not the complete legal health record.[facility]
--- OUTSIDE RECORDS SUMMARY | 2025-07-11 09:26 | XMS_ITS | Encounter Summary ---
Author Organization [facility] Address [address] [place] [address] Phone Care Team Providers Care Door Person Name Role Phone Todd Quiroga DO Primary Care Provider + [phone] Encounter Details Date Type Department Care Team ([facility] Contact Info) Description 02/28/2024 Procedure Pass [facility] Endoscopy Admitting Dept Virtual Department [address] [place] [address] Social History Tobacco Use Types Packs/Day Years Used Date Smoking Tobacco: Never Assessed Education Answer Date Recorded Are you interested in more education? Not on temitope e 03/11/2023 Are you concerned about learning? Not on file 03/11/2023 No 03/11/2023 No 03/11/2023 Digital Access Answer Date Recorded No 04/11/2023 No 04/11/2023 Reliable internet access at home? Not on file 04/11/2023 Device with a working camera? Not on file Comments Unknown Sex and Gender Information Value Date Recorded Sex Assigned at Female 07/25/2024 8:21 AM EDT Legal Sex Female 1:31 PM EDT Gender Identity Female 07/25/2024 8:21 AM EDT Sexual Orientation Not on file documented as of this encounter Plan of Treatment Not on file documented as of this encounter Visit Diagnoses Not on filedocumented in this encounter Care Teams Door Person Relationship Specialty Start Date End Date Todd Quiroga DO [address] [facility] [address] [place] [address] PCP - General Family Medicine 01/27/24 documented as of this encounter Additional Source Comments The information contained in this document represents components of the legal health record. It is not the complete legal health record.[facility]
[2025-07-11 09:39] LABS: Alanine Aminotransferase 43 U/L (0-31); Albumin Level 4.7 g/dL (3.5-5.0); Alkaline Phosphatase 76 U/L (39-117); Anion Gap 8 (12-20); Aspartate Amino Transferase 34 U/L (5-31); Blood Urea Nitrogen 12 mg/dL (9-16); Calcium 9.2 mg/dL (8.4-10.2); Carbon Dioxide 25 mmol/L (22-29); Chloride 108 mmol/L (96-108); Creatinine Clr Calc Pharmacy 84.1; Estimated Glomerular Filt Rate > 60; Magnesium 2.2 mg/dL (1.6-2.6); Potassium 4.1 mmol/L (3.3-5.1); Sodium 137 mmol/L (135-145); Total Protein 7.6 g/dL (6.5-8.0)
--- NOTE | 2025-07-11 10:12 | ED_ITS ---
HPI - General Adult General Chief complaint: Abdominal Pain Stated complaint: Kidney infection, seen recently Time Seen by Provider: 07/11/25 08:43 History of Present Illness ED Provider: Dr. Mooney HPI narrative: 50 y/o F patient; PMH migrains; presents from home with report of left flank pain, nausea without vomiting, cloudy urine and urinary frequency. The patient states she was recently treated with cefuroxime for a urine tract infection. She completed the entire course and then began to feel symptoms. She otherwise denies: fever or chills, abdominal pain, chest pain, SOB, cough/congestion. Related Data Previous Rx's ?Medication ?Instructions ?Recorded doxycycline hyclate 100 mg capsule 100 mg PO BID #10 c aps 10/09/20 hydrocodone-homatropine 5 mg-1.5 5 ml PO Q6H PRN cough #473 mL 10/09/20 mg/5 mL oral solution prednisone 50 mg tablet 50 mg PO DAILY 5 days #5 tab s 10/09/20 ciprofloxacin HCl 500 mg tablet 500 mg PO Q12H 7 days #14 tabs 04/05/21 (Cipro) ciprofloxacin HCl 500 mg tablet 500 mg PO Q12H 5 days #10 tabs 11/05/21 prednisone 20 mg tablet 40 mg (2 x 20 mg) PO DAILY 5 days 02/10/22 #10 tabs cetirizine 10 mg capsule 10 mg PO DAILY PRN allergy 0 07/17/22 symptoms #14 caps clobetasol 0.05 % topical ointment 1 appl topical JT Y PRN rash #45 07/17/22 grams diphenhydramine HCl 25 mg capsule 50 mg (2 x 25 mg) PO BEDTIME PRN 07/17/22 (Benadryl) allergy symptoms #20 caps famotidine 20 mg tablet (Pepcid) 20 mg PO DAILY #10 ta bs 07/17/22 clindamycin HCl 150 mg capsule 450 mg (3 x 150 mg) PO TID 7 days 07/20/22 #63 caps metoclopramide HCl 5 mg tablet 5 mg PO Q6H #10 tabs (Reglan) sumatriptan succinate 50 mg tablet See Rx Instructions PO .COMPLEX 11/29/22 #10 tabs azithromycin 250 mg tablet See Rx Instructions PO .COM PLEX #6 06/09/24 tabs cefuroxime axetil 250 mg tablet 250 mg PO Q12H 7 days #14 tabs 07/04/25 fluconazole 150 mg tablet 150 mg PO QWEEK 2 weeks #2 t abs 07/04/25 ondansetron 4 mg disintegrating 4 mg PO Q6-8H PRN naus ea and 07/04/25 tablet vomiting #14 tabs oxycodone 5 mg tablet 5 mg PO Q4H PRN pain #10 tab s 07/04/25 Allergies Allergy/AdvReac Type Severity Reaction Status Date / Time latex (LATEX) Allergy Unknown RASH Verified 07/11/25 08:35 Latex Gloves Allergy Unknown Rash Uncoded 11/29/22 02:31 Review of Systems 2 Review of Systems: Yes all other systems are reviewed and are negative [facility] Past Medical History Attestation statement: The following information was validated with the patient. Source: old records reviewed Medical History Migraine Uterine fibroid Asthma No known health problems Surgical History History of hysterectomy Family History Family History Other Family history non-contributory Social History Social History Alcohol intake: current Alcohol intake frequency: holidays/special occasions only Advance Directives: Yes Advance Directives Information Provided: No Advance Directives on File: No Physical Exam ED Vital Signs: Vital Signs - 24 hr 07/11/25 08:32 Temperature 97.9 F Pulse Rate 79 Respiratory Rate 18 Blood Pressure 147/90 H Pulse Oximetry 97 Oxygen Delivery Method Room Air BMI result Body Mass Index 32.7 Patient is afebrile, mildly hypertensive. Const General: cooperative and no acute distress Orientation/consciousness: patient oriented x3 HENMT Head: Yes normal to inspection and Yes atraumatic Eyes General: appearance normal, both eyes and all related structures Pupils: Equal, round and reactive pupils present EOM: EOMs intact bilaterally Neck Neck: Yes normal visual inspection, Yes full ROM and Yes supple Chest Chest palpation & inspection: normal inspection of the chest and normal palpation of entire chest wall Resp Effort & Inspection: normal respiratory effort, able to speak in complete sentences and no cough Auscultation: clear to auscultation bilaterally Cardio Rate: regular rate Rhythm: regular rhythm Peripheral pulses: Peripheral pulses 2+ throughout GI Inspection: Yes normal to inspection, No Abdominal wall edema and No distended Palpation (GI): Soft to palpation, not firm, nontender, no guarding and not rigid Auscultation: normal bowel sounds Back/Spine/Pelvis Other: + left sided flank pain Neuro General: patient oriented x3 Cranial nerves: Yes Equal, round and reactive pupils present Course Course Course Narrative: Patient is afebrile, mildly hypertensive. Reviewed triage lab work and UA. Reviewed recent relevant medical record. Labs reviewed. No leukocytosis. No significant anemia. Mild transaminitis with AST/ALT 34/43. UA is without evidence of cystitis or hematuria. Will obtain renal US. Received Zofran 4mg IV for nausea. US notable for mild pericalyceal estasia. Patient states she feels like her pain is worsening. Will obtain CT Abdomen/Pelvis. Ordered for Tylenol and Toradol IV. CT notable only for large amount of stool in colon. Provided constipation management guidelines. Plan: Discharge to home with PCP follow up Return precautions given Medications Administered Discontinued Medications Generic Name Dose Route Start Last Admin Trade Name Freq PRN Reason Stop Dose Admin Sodium Chloride 1,000 mls @ 999 mls/hr 07/11/25 11:00 07/11/25 12:42 Ns IV 07/11/25 12:00 999 mls/hr .Q1H1M FRANK Administration Acetaminophen 1,000 mg in 100 mls @ 400 mls/hr 07/11/25 12:33 07/11/25 13:34 Ofirmev IV 07/11/25 12:47 Infused ONCE ONE Infusion Iohexol 100 ml 07/11/25 13:27 07/11/25 13:28 Iohexol 350 Mg/Ml 100 Ml Infus..Btl IV 07/11/25 13:28 85 ml ONCE ONE Administration Ketorolac Tromethamine 15 mg 07/11/25 12:33 07/11/25 12:43 Ketorolac Tromethamine 15 Mg/Ml Vial IVPUSH 07/11/25 12:34 15 mg ONCE ONE Administration Ondansetron HCl 4 mg 07/11/25 09:21 07/11/25 09:46 Ondansetron Hcl 4 Mg/2 Ml Vial IVPUSH 07/11/25 09:22 4 mg ONCE ONE Administration Medical Decision Making Lab Data 07/11/25 09:17 07/11/25 09:17 Labs: Lab Results 07/11/25 Range/Units 09:17 WBC 8.2 (4.8-10.8) X10*3/uL RBC 4.20 (4.20-5.50) X10*6/uL Hgb 12.8 (12.0-16.0) g/dl Hct 37.7 (37.0-47.0) % MCV 89.8 (80.0-98.0) fL MCH 30.5 (27.0-33.0) pg MCHC 34.0 (31.0-35.0) g/dl RDW 13.1 (11.0-16.0) % Plt Count 261 (160-400) X10*3/uL MPV 10.7 (9.4-12.3) fL Absolute Nucleated RBC 0.000 (0.0-0.012) X10*3/uL Nucleated RBC % (auto) 0.0 (0.0-0.2) /100WBC Sodium 137 (135-145) mmol/L Potassium 4.1 (3.3-5.1) mmol/L Chloride 108 (96-108) mmol/L Carbon Dioxide 25 (22-29) mmol/L Anion Gap 8 L (12-20) BUN 12 (9-16) mg/dL Creatinine 0.83 (0.5-1.4) mg/dL Estim Creat Clear Calc 84.1 Estimated GFR > 60 Random Glucose 95 (60-115) mg/dL Calcium 9.2 (8.4-10.2) mg/dL Magnesium 2.2 (1.6-2.6) mg/dL Total Bilirubin 0.4 (0.0-1.0) mg/dL AST 34 H (5-31) U/L ALT 43 H (0-31) U/L Alkaline Phosphatase 76 (39-117) U/L Total Protein 7.6 (6.5-8.0) g/dL Albumin 4.7 (3.5-5.0) g/dL Urine Color Yellow Urine Appearance Clear Urine pH 7.5 (5.0-9.0) Ur Specific [place] 1.015 (1.005-1.025) Urine Protein Negative (Neg-Trace) mg/dL Urine Glucose (UA) Negative (Negative) mg/dL Urine Ketones Negative (Negative) mg/dL Urine Blood Negative (Negative) Urine Nitrite Negative (Negative) Ur Leukocyte Esterase Negative (Negative) Radiology Impression Discussion of test interpretation with radiology: I have reviewed the radiologist's reading. Radiologist Impression: EXAMINATION: US RETROPERITONEAL LIMITED (RENAL ONLY) CLINICAL INFORMATION: Left flank pain. Recent history of pyelonephritis.. COMPARISON: Correlated to CT abdomen pelvis dated November 05, 2021. TECHNIQUE: Real-time ultrasound of the kidneys using grayscale technique. FINDINGS: RIGHT KIDNEY: 10 x 4 x 6 cm (SAG x AP x TRV). Volume: 127 cc. Normal echotexture. Normal renal cortical thickness. There is a 6 mm hyperechoic abnormality in the midportion without flow on color Doppler interrogation. Mild pelvicalyceal ectasia versus extrarenal pelvis. No overt hydronephrosis. LEFT KIDNEY: 11 x 6 x 7 cm (SAG x AP x TRV). Volume: 227 cc. Normal echotexture. Normal renal cortical thickness. 4 mm hyperechoic abnormality in the midportion. No ovarian hydronephrosis. Probable pelvicalyceal ectasia. 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 Mild pelvicalyceal ectasia.. Electronically signed by: Carmine Albert MD 07/11/2025 12:17 PM EDT Report Number: [id number]: Total DLP = 542.00 mGy-cm EXAMINATION: CT ABDOMEN PELVIS WITH IV CONTRAST HISTORY: Left flank pain COMPARISON: There are no prior studies for available comparison. TECHNIQUE: CT scan of the abdomen and pelvis was performed following administration of 85 mL Omnipaque 350 using standard departmental protocol. Coronal and sagittal reformatted images were generated and reviewed. Oral contrast material was not administered at the request of the referring physician. This CT exam was performed with one or more of the following dose reduction techniques: automated exposure control, adjustment of the mA and/or kV according to patient size, use of iterative reconstruction technique. DLP: 542 mGy-cm FINDINGS: LOWER CHEST: The visualized lung bases are clear. There is no pleural effusion. CARDIOVASCULATURE: The heart is normal in size. There is no pericardial effusion. LIVER: The liver is normal in size and contour. No liver mass is identified. The hepatic and portal veins are patent. GALLBLADDER / BILE DUCTS: The gallbladder is unremarkable. There is no intra or extrahepatic biliary ductal dilatation. SPLEEN: The spleen is normal in size. No focal splenic lesion is identified. PANCREAS: The pancreas is unremarkable in appearance. ADRENAL GLANDS: Within normal limits. KIDNEYS/RETROPERITONEUM: No renal or ureteral calculi are identified. There is no hydronephrosis or hydronephrosis. No renal masses are identified. LYMPH NODES: No abdominal or pelvic lymphadenopathy. VASCULATURE: The abdominal aorta is normal in caliber. MESENTERY/PERITONEUM: No free fluid. No masses. There is no free intraperitoneal gas. STOMACH: The stomach is collapsed, limiting evaluation. SMALL BOWEL: The small bowel is normal in caliber. COLON: There is a large amount of stool throughout the colon. APPENDIX: The appendix is not seen, however no inflammatory changes are seen adjacent to the cecum. URINARY BLADDER/PELVIC ORGANS: The urinary bladder is unremarkable. The patient is status post hysterectomy. BONES / SOFT TISSUES: No suspicious bony or soft tissue abnormalities. CT/CT abdomen pelvis w IV con IMPRESSION: Large amount of stool throughout the colon. Electronically signed by: Corey Thompson MD 07/11/2025 01:37 PM EDT Discharge Plan Discharge Clinical Impression: Acute flank pain Patient Disposition: Home, Self-Care Instructions: Constipation (DC) Additional Instructions: You were seen today for flank pain. Your kidney US, lab work, and urine were reassuring. Your CT scan showed you're rather constipated. Would recommend taking a softener and stimulant laxative tonight if you are able to stay home tomorrow. Prescriptions: No Action doxycycline hyclate 100 mg capsule 100 mg PO BID Qty: 10 0RF prednisone 50 mg tablet 50 mg PO DAILY 5 Days Qty: 5 0RF hydrocodone-homatropine 5-1.5 mg/5 mL syrup 5 ml PO Q6H PRN (Reason: cough) Qty: 473 0RF ciprofloxacin HCl [Cipro] 500 mg tablet 500 mg PO Q12H 7 Days Qty: 14 0RF prednisone 20 mg tablet 40 mg PO DAILY 5 Days Qty: 10 0RF ciprofloxacin HCl 500 mg tablet 500 mg PO Q12H 5 Days Qty: 10 0RF cetirizine 10 mg capsule 10 mg PO DAILY PRN (Reason: allergy symptoms) Qty: 14 0RF diphenhydramine HCl [Benadryl] 25 mg capsule 50 mg PO BEDTIME PRN (Reason: allergy symptoms) Qty: 20 0RF famotidine [Pepcid] 20 mg tablet 20 mg PO DAILY Qty: 10 0RF clobetasol 0.05 % ointment 1 appl topical DAILY PRN (Reason: rash) Qty: 45 0RF clindamycin HCl 150 mg capsule 450 mg PO TID 7 Days Qty: 63 0RF sumatriptan succinate 50 mg tablet See Rx Instructions .ROUTE .COMPLEX Qty: 10 0RF Rx Instructions: take 1 tab at onset of headache; if no relief may repeat 1 tab after at least 2 hrs; max = 4 tabs/24 hr metoclopramide HCl [Reglan] 5 mg tablet 5 mg PO Q6H Qty: 10 0RF Rx Instructions: Take together with sumatriptan p.r.n. severe migraine azithromycin 250 mg tablet See Rx Instructions .ROUTE .COMPLEX Qty: 6 0RF Rx Instructions: For 250 mg dose pack: take 500 mg today (day 1), then 250 mg for 4 days (days 2-5) cefuroxime axetil 250 mg tablet 250 mg PO Q12H 7 Days Qty: 14 0RF ondansetron 4 mg tablet,disintegrating 4 mg PO Q6-8H PRN (Reason: nausea and vomiting) Qty: 14 0RF fluconazole 150 mg tablet 150 mg PO QWEEK 14 Days Qty: 2 0RF oxycodone 5 mg tablet 5 mg PO Q4H PRN (Reason: pain) Qty: 10 0RF Rx Instructions: Partial Fill upon patient request. Print Language: Chinese
[2025-07-11] MEDS: iohexoL 350 MG/ML 100 ML INFUS..BTL IV (13:28)
[2025-07-11 13:52] VITALS: BP 111/72; PULSE 60; RESP 16; TEMP 36.8; O2SAT 96
[2025-07-11 14:13] VITALS: BP 111/72; PULSE 60; RESP 16; TEMP 36.8; O2SAT 96
== END 2025-07-11 14:14 | disposition home or self-care (01) ==
PROVIDERS: Emergency Provider Emergency Medicine; PCP Family Medicine
DX: R10.9 Unspecified abdominal pain (principal); R11.0 Nausea; Z87.440 Personal history of urinary (tract) infections
CPT/HCPCS: 36415; 74177; 76775; 80053; 81003; 83735; 85027; 96361; 96374; 96375; 99285; J0131; J1885; J2405; Q9967

== ENCOUNTER → 2025-07-11 10:41 | Outpatient (BNV) | payer OTHER, SELFPAY | PROVIDERS: Emergency Provider Emergency Medicine; PCP Family Medicine; Visit Provider Radiology Diagnostic Radiology | DX: K59.00 Constipation, unspecified (principal); R93.429 Abnormal radiologic findings on diagnostic imaging of unspecified kidney | CPT/HCPCS: 74177; 76775 ==